=== PATIENT | female | born 1980 | race Caucasian/White ===

== ENCOUNTER 2017-09-10 11:56 | Observation (INO) | payer SELFPAY ==
[2017-09-10] MEDS ORDERED: LORazepam INJ* 2 MG/ML 1 ML VIAL IV PUSH ONE (15:16)
[2017-09-10] MEDS ORDERED: NS 0.9% 1000 ML* 1,000 ML IV ONE ×2 (15:16→16:00)
[2017-09-10 15:28] LABS: Hematocrit 38 % (35-47); Hemoglobin 13.3 g/dl (12.0-16.0); Mean Corpuscular HGB Conc 35 g/dl (31-36); Mean Corpuscular Hemoglobin 34 pg (27-31); Mean Corpuscular Volume 97 fL (80-97); Mean Platelet Volume 7 um3 (7.4-10.4); Platelet Count 187 10^3/ul (150-450); Red Blood Count 3.95 10^6/ul (4.0-5.4); Red Cell Distribution Width 15 % (10.5-15)
[2017-09-10] MEDS ORDERED: amLODIPine TAB* 5 MG PO ONE (15:57)
[2017-09-10] MEDS ORDERED: Losartan TAB* 25 MG PO ONE ×2 (15:57→15:59)
[2017-09-10 15:58] LABS: ABS Basophils 0.1 10^3/ul (0-0.2); ABS Eosinophils 0 10^3/ul (0-0.6); ABS Lymphocytes 1.1 10^3/ul (1.0-4.8); ABS Monocytes 0.7 10^3/ul (0-0.8); ABS Neutrophils 8.1 10^3/ul (1.5-7.7); ABS Nucleated RBC 0 10^3/ul; EGFR Non-African American 106.9 (>60); Eosinophil % 0 % (0-6); Lymphocyte % 11.4 % (25-47); Nucleated Red Blood Cells % 0.1
[2017-09-10] MEDS ORDERED: Metoprolol Succinate XL TAB* 25 MG PO ONE (15:58)
[2017-09-10] MEDS ORDERED: Potassium Chlor TAB* 20 MEQ TAB.ER PO ONE (16:00)
[2017-09-10] MEDS ORDERED: Ondansetron INJ* 2 MG/ML VIAL IV PRN (17:00)
[2017-09-10] MEDS ORDERED: Thiamine IV 100 MG, Folic Acid IV* 1 MG, Multiple Vitamin IV ADULT* 10 ML in NS 0.9% 10... IV ONE (17:00)
[2017-09-10] MEDS ORDERED: NS 0.9% 1000 ML* 1,000 ML IV SCH (17:00)
[2017-09-10] MEDS ORDERED: Acetaminophen TAB* 325 MG PO PRN (17:00)
[2017-09-10] MEDS ORDERED: Metoprolol Tartrate IV* 1 MG/ML 5 ML VIAL IV ONE (17:03)
[2017-09-10] MEDS ORDERED: Magnesium Sulfate 2 GM IV* 2 GM/50 ML BAG IVPB ONE (17:21)
[2017-09-10] MEDS ORDERED: LORazepam INJ* 2 MG/ML 1 ML VIAL IV PUSH SCH (18:00)
[2017-09-10] MEDS: LORazepam TAB(*) 1 MG PO SCH (18:15)
[2017-09-10] MEDS: KCL 10 MEQ/50 ML IVPREMIX* 10 MEQ/50 ML BAG IV SCH ×2 (21:45→23:45)
[2017-09-10 22:49] LABS: Urine Appearance Cloudy; Urine Blood 1+ (Negative); Urine Color Yellow; Urine Ketones Trace (Negative); Urine Protein Negative (Negative); Urine Specific Gravity 1.011 (1.010-1.030); Urine Urobilinogen Negative (Negative)
--- NOTE | 2017-09-10 22:58 | HP ---
HISTORY AND PHYSICAL: DATE OF ADMISSION: 09/10/17 PRIMARY CARE PROVIDER: None. ATTENDING PHYSICIAN WHILE IN THE HOSPITAL: Juan Manuel Wolff MD * (report dictated by Dom Loera NP). CHIEF COMPLAINT: 1. Anxiety. 2. Depression. 3. EtOH withdrawal. HISTORY OF PRESENT ILLNESS: Mrs. Babcock is 37-year-old female patient. She has a history of anxiety and depression, which she states she has been self medicating with alcohol on a daily basis for the last 5 years. She also has a history of hypertension and depression. She states the last time she was on any medications for depression and anxiety was about when she was a teenager. She does have a counselor she says. She came in today. She says the last couple of weeks she has been drinking much more heavily, she has been more anxious, more depressed. She denies any homicidal or suicidal ideation, but she does state that she stopped drinking about 24 hours ago and since then she has been more shaky. She states she has been having palpitations in her chest. She denied having any chest pain. She has been feeling nauseated. She has just been feeling more anxious and she was concerned. Her friend Kiera who was with her, advised her to get help, particularly for the alcoholism, anxiety and depression. She denies any chest pain, shortness of breath. No fevers, no cough. She says when she does get anxious, she hyperventilates and she has been having increasing severity of panic attacks. I asked her if she can speak of any trigger that may be causing this and she did not elaborate on this point. She came in to the ED and it was noted when she came in she was tachycardic, she was hypertensive. In addition to this, it was also noted that she appeared to be having signs of alcohol withdrawal, so we were asked to evaluate for admission. PAST MEDICAL HISTORY: Significant for: 1. Hypertension. 2. Depression. 3. Anxiety. PAST SURGICAL HISTORY: She has had a hernia repair. HOME MEDICATIONS: Include: 1. Amlodipine 10 mg daily. 2. Metoprolol XL 25 mg daily. 3. Losartan 100 mg p.o. daily. ALLERGIES TO MEDICATIONS: Include no known drug allergies. FAMILY HISTORY: Mother had a history of LA and CAD in her late 50s. Father had a history of colon cancer. SOCIAL HISTORY: She does not smoke or use any other recreational drug, but she does drink alcohol on a daily basis, she does not quantify the amount. Surrogate decision maker is her friend Kiera. REVIEW OF SYSTEMS: There is no documented fever. She denied any significant weight change. There was no double vision. She denies having any ear discharge. There is no rhinorrhea. There is no sore throat. No thyroid enlargement. She denied having any chest pain. She did admit to having palpitations. There is no dysuria. There is no frequency, no seizure. She denies any loss of consciousness. No pruritus and no skin ulcerations. No dysuria. No frequency. Review of 14 systems completed, all others negative. PHYSICAL EXAMINATION GENERAL: At this time, Mrs. Babcock is a 37-year-old female patient. She is sitting in the ED stretcher. She does not appear to be in any acute distress. VITAL SIGNS: Blood pressure initially 164/107, pulse 126, respirations were 20 , O2 sat 97%, temperature 98.7. Her blood pressure now on monitors is 157/98, pulse 106. HEENT: Head: Atraumatic. Eyes: Sclerae anicteric, not pale. Throat: Oral mucosa appears to be moist. No oropharyngeal erythema. NECK: Supple. LUNGS: Clear to auscultation bilaterally. No wheezes, rales, or rhonchi. HEART: Sounds S1, S2. Regular rate and rhythm. She is tachycardic. ABDOMEN: Soft, flat, nontender. Bowel sounds are present. EXTREMITIES: Pulses are 2+ throughout. She is moving all 4 extremities with 5/ 5 strength. NEUROLOGIC: She is awake, alert, oriented x3. No gross focal deficits. SKIN: Intact. DIAGNOSTIC STUDIES/LAB DATA: Sodium was 136, potassium 2.9, chloride of 98, bicarb 20, BUN 10, creatinine 0.63, glucose 130, calcium 9.2, mag 1.0. AST 30, ALT 17, alk phos 43. Albumin of 4.4, TSH of 2.68. Blood gas; pH of 7.52, pCO2 of 33. Toxicology negative. She did have an EKG obtained today, which showed sinus tachycardia at a rate of 128. No ST elevations or T wave inversions. Previous EKG showed sinus tachycardia of 105. Old medical records were reviewed. ASSESSMENT AND PLAN: Ms. Babcock is a 37-year-old female patient coming into the ED today complaining of having shaking, increasing anxiety. On evaluation here today, it was noted that she was in EtOH withdrawal. She will be admitted under observation status for: 1. EtOH withdrawal and tachycardia. At this point, I will go ahead and place her on the WAM protocol, standing Ativan as well. Tachycardia could be secondary to dehydration, also could be secondary to the alcohol withdrawal. I am going to give her 5 of IV Lopressor now. Continue her p.o. Lopressor to be taken today and will continue the WAM protocol. We will give her banana bag and continue thiamine and folic acid. 2. Hypertension. We are going to restart medications. Her blood pressure is 156/96. If I need to, I will add on p.r.n. hydralazine. 3 Anxiety and depression. We will continue with supportive care. At this point, I did place a consult with social work. In addition to this, I also placed a consult into Psychiatry for further management. 4. DVT prophylaxis. She will be placed on SCDs. 5. Code status. Full code. 6. Fluids, electrolytes, and nutrition. She can have a regular diet. TIME SPENT: Time spent on the admission is 60 minutes, greater than half the time was spent [id number] with the patient, obtaining my history and physical , other half of the time spent going over the plan of care with the patient and implementing plan of care. I did discuss the plan of care with my attending, Dr. Wolff, he is in agreement. DOM LOERA, ASCENCION [id number]/CPS #: [id number] KRISTEN
[2017-09-11] MEDS: KCL 10 MEQ/50 ML IVPREMIX* 10 MEQ/50 ML BAG IV SCH (01:53)
[2017-09-11] MEDS: LORazepam TAB(*) 1 MG PO SCH ×2 (02:41→09:39)
[2017-09-11] MEDS: Omeprazole CAP* 20 MG PO SCH (06:39)
[2017-09-11 07:52] LABS: ABS Basophils 0 10^3/ul (0-0.2); ABS Eosinophils 0.1 10^3/ul (0-0.6); ABS Lymphocytes 0.7 10^3/ul (1.0-4.8); ABS Monocytes 0.3 10^3/ul (0-0.8); ABS Neutrophils 3.2 10^3/ul (1.5-7.7); ABS Nucleated RBC 0 10^3/ul; Eosinophil % 2.7 % (0-6); Hematocrit 38 % (35-47); Hemoglobin 13.1 g/dl (12.0-16.0); Lymphocyte % 16.8 % (25-47); Mean Corpuscular HGB Conc 34 g/dl (31-36); Mean Corpuscular Hemoglobin 34 pg (27-31); Mean Corpuscular Volume 99 fL (80-97); Mean Platelet Volume 7 um3 (7.4-10.4); Nucleated Red Blood Cells % 0; Platelet Count 129 10^3/ul (150-450); Red Blood Count 3.87 10^6/ul (4.0-5.4); Red Cell Distribution Width 16 % (10.5-15); White Blood Count 4.3 10^3/ul (3.5-10.8)
[2017-09-11 08:08] LABS: EGFR Non-African American 161.8 (>60)
[2017-09-11 08:15] LABS: INR 0.83 (0.77-1.02)
[2017-09-11] MEDS: Metoprolol Succinate XL TAB* 25 MG PO SCH (09:39)
[2017-09-11] MEDS: amLODIPine TAB* 5 MG PO SCH (09:39)
[2017-09-11] MEDS: Losartan TAB* 25 MG PO SCH (09:39)
[2017-09-11] MEDS ORDERED: Potassium Chlor TAB* 20 MEQ TAB.ER PO ONE (17:48)
--- NOTE | 2017-09-11 18:10 | PN ---
Subjective Date of Service: 09/11/17 Interval History: Pt is feeling well. She is anxious and frustrated about waiting all day for her psych consult. She has not been seen by psych and now wants to leave. Her family member has been able to convince her to stay the night to be assessed tomorrow. The patient denies any withdrawal symptoms at this time. Objective Active Medications: Acetaminophen (Tylenol Tab*) 650 mg PO Q4H PRN PRN Reason: FEVER/PAIN Amlodipine Besylate (Norvasc Tab*) 10 mg PO DAILY [facility] Last Admin: 09/11/17 09:39 Dose: 10 mg Sodium Chloride (Ns 0.9% 1000 Ml*) 1,000 mls @ 125 mls/hr IV PER RATE [facility] Last Admin: 09/10/17 21:43 Dose: 125 mls/hr Lorazepam (Ativan Inj*) 0 - 3 [address] P[address] .[facility] PROTOCOL [facility] PRN Reason: Protocol Lorazepam (Ativan Tab(*)) 2 mg PO Q12H [facility] PRN Reason: Taper Stop: 09/13/17 13:59 Last Admin: 09/11/17 09:39 Dose: 2 mg Losartan Potassium (Cozaar Tab*) 100 mg PO DAILY [facility] Last Admin: 09/11/17 09:39 Dose: 100 mg Metoprolol Succinate (Toprol Xl Tab*) 25 mg PO DAILY [facility] Last Admin: 09/11/17 09:39 Dose: 25 mg Metoprolol Succinate (Toprol Xl Tab*) 12.5 mg PO BEDTIME [facility] Omeprazole (Prilosec Cap*) 20 mg PO 0600 [facility] Last Admin: 09/11/17 06:39 Dose: 20 mg Ondansetron HCl (Zofran Inj*) 4 mg IV Q6H PRN PRN Reason: NAUSEA Vital Signs - 8 hr 09/11/17 09/11/17 09/11/17 11:05 11:20 11:29 Temperature 98.1 F Pulse Rate 113 113 Respiratory 16 16 Rate Blood Pressure 147/102 144/102 (mmHg) O2 Sat by Pulse 100 100 Oximetry 09/11/17 09/11/17 09/11/17 13:42 15:16 17:15 Temperature 98.9 F Pulse Rate 108 122 111 Respiratory 14 Rate Blood Pressure 157/107 145/111 150/102 (mmHg) O2 Sat by Pulse 100 Oximetry Oxygen Devices in Use Now: None Appearance: Young female sitting up in bed, NAD Eyes: No Scleral Icterus Ears/Nose/Mouth/Throat: Mucous Membranes Moist Respiratory: Symmetrical Chest Expansion and Respiratory Effort, Clear to Auscultation Cardiovascular: NL Sounds; No Murmurs; No JVD, No Edema, - - tachycardic but regular Abdominal: NL Sounds; No Tenderness; No Distention Extremities: No Clubbing, Cyanosis Skin: No Rash or Ulcers, No Nodules or Sclerosis Neurological: Alert and Oriented x 3 Result Diagrams: 09/11/17 07:29 09/11/17 06:28 Assess/Plan/Problems-Billing Ms Babcock is a 37 yo F who has a h/o HTN, depression/anxiety and alcohol abuse who presented to the ER with c/o alcohol withdrawal. - Patient Problems (1) Alcohol withdrawal Current Visit: Yes Status: Acute Code(s): F10.239 - ALCOHOL DEPENDENCE WITH WITHDRAWAL, UNSPECIFIED SNOMED Code(s): 037600960 Comment: The patient has not been scoring high enough on the WAM protocol to receive ativan. Anxiety is the biggest issue at this time and the patients family member stated that she does not feel the patient knows how to cope and the patient would be interested in an admission to the [facility] for anxiety management. (2) HTN (hypertension) Current Visit: Yes Status: Acute Code(s): I10 - ESSENTIAL (PRIMARY) HYPERTENSION SNOMED Code(s): 38559976 Comment: BP is moderately elevated. Monitor with increased metoprolol dose. Unclear how much the HTN is secondary to possible EtOH withdrawal vs anxiety of being in the hospital. (3) Anxiety Current Visit: Yes Status: Acute Code(s): F41.9 - ANXIETY DISORDER, UNSPECIFIED SNOMED Code(s): 55195042 Comment: See above. (4) DVT prophylaxis Current Visit: Yes Status: Acute Code(s): TME6221 - SNOMED Code(s): 757273469 Comment: ambulation (5) Full code status Current Visit: Yes Status: Acute Code(s): Z78.9 - OTHER SPECIFIED HEALTH STATUS SNOMED Code(s): 347660261
[2017-09-11] MEDS ORDERED: LORazepam TAB(*) 1 MG PO PRN (18:13)
[2017-09-11] MEDS ORDERED: LORazepam TAB(*) 0.5 MG PO PRN (18:13)
[2017-09-11] MEDS ORDERED: hydrOXYzine HCL TAB* 50 MG PO PRN (18:57)
[2017-09-11] MEDS: Sertraline* 50 MG TAB PO SCH (20:05)
[2017-09-11] MEDS ORDERED: Metoprolol Succinate XL TAB* 25 MG PO SCH (21:00)
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
[2017-09-12] MEDS: Omeprazole CAP* 20 MG PO SCH (05:19)
[2017-09-12] MEDS: Metoprolol Succinate XL TAB* 25 MG PO SCH (07:49)
[2017-09-12] MEDS: Sertraline* 50 MG TAB PO SCH (07:49)
[2017-09-12] MEDS: Losartan TAB* 25 MG PO SCH (07:49)
[2017-09-12] MEDS: amLODIPine TAB* 5 MG PO SCH (07:49)
[2017-09-12 08:56] VITALS: BP 165/120
--- NOTE | 2017-09-12 22:47 | ED ---
Gary Figueroa Jennifer scribed for Elier Godinez MD on 09/10/17 at 1539 . Substance Abuse/Use - HPI Summary HPI Summary: The patient is a 37 year old female who presents with anxiety that worsened today. The patient describes that she has been generally anxious for years and typically drinks half a bottle of alcohol every day to deal with the anxiety. She reports that she had problems with breathing and chest soreness from nausea earlier today. The patient denies tingling or numbness, seizures, and suicidal ideation. She additionally complains of loss of appetite. The patient lives alone and works six days a week. She has gone through withdrawal before, - History Of Current Complaint Chief Complaint: EDSubstanceAbuse Stated Complaint: PANIC ATTACT Time Seen by Provider: 09/10/17 15:06 Hx Obtained From: Patient Ingestion History: Type/Name Of Drug - EtOH, Amount Ingested - About half a bottle of vodka 6 days a week Overdose Characteristics: Oral Timing Of Abuse: Daily Severity Initially: Moderate Severity Currently: Moderate Character: Anxious Aggravating Factor(s): Nothing Alleviating Factor(s): Nothing Associated Signs And Symptoms: Other: - difficulty breathing, chest soreness, nausea, loss of appetite. NEGATIVE: tingling, numbness, seizures, suicidal ideation - Allergies/Home Medications Allergies/Adverse Reactions: Allergies Allergy/AdvReac Type Severity Reaction Status Date / Time No Known Allergies Allergy Verified 01/17/15 13:14 Home Medications: Home Medications Losartan TAB* [Cozaar TAB*] 100 mg PO DAILY 09/10/17 [History Confirmed 09/10/17 ] Metoprolol Succinate XL TAB* [Toprol XL TAB*] 25 mg PO DAILY 09/10/17 [History Confirmed 09/10/17] amLODIPine TAB* [Norvasc 5 mg TAB*] 10 mg PO DAILY 09/10/17 [History Confirmed 09/10/17] PMH/Surg Hx/FS Hx/Imm Hx Endocrine/Hematology History: Denies: Hx Diabetes Cardiovascular History: Reports: Hx Hypertension Psychiatric History: Reports: Hx Anxiety Infectious Disease History: No Infectious Disease History: Denies: Traveled Outside the [place] in Last 30 Days - Family History Known Family History: Positive: Unknown - Her parents a while ago - Social History Alcohol Use: Daily Alcohol Amount: "larger consumptions than smaller" Substance Use Type: Reports: None Smoking Status (MU): Former Smoker Review of Systems Negative: Fever, Chills Negative: Erythema Negative: Sore Throat Positive: Other - Chest soreness from nausea. Negative: Chest Pain Positive: Shortness Of Breath - Difficulty breathing. Negative: Cough Positive: Nausea. Negative: Abdominal Pain, Vomiting Negative: dysuria, hematuria Negative: Myalgia, Edema Negative: Rash Neurological: Negative - Dizziness, Seizures Negative: Numbness Positive: Anxious All Other Systems Reviewed And Are Negative: Yes Physical Exam - Summary Physical Exam Summary: Constitutional: Well-developed, Well nourished, Alert. Tremulant. Skin: Warm, Diaphoretic. HENT: Normocephalic; Atraumatic Eyes: Conjunctiva normal Neck: Musculoskeletal ROM normal neck. (-) JVD, (-) Stridor, (-) Tracheal deviation Cardio: Rhythm regular, rate normal, Heart sounds normal; Intact distal pulses; The pedal pulses are 2+ and symmetric. Radial pulses are 2+ and symmetric. (-) Murmur Pulmonary/Chest wall: Effort normal. (-) Respiratory distress, (-) Wheezes, (-) Rales Abd: Soft, (-) Tenderness, (-) Distension, (-) Guarding, (-) Rebound Musculoskeletal: (-) Edema Lymph: (-) Cervical adenopathy Neuro: Alert, Oriented x3 Psych: Mood and affect Normal Triage Information Reviewed: Yes Vital Signs On Initial Exam: Initial Vitals Temp Pulse Resp BP Pulse Ox 98.1 F 141 20 172/109 100 09/10/17 12:02 09/10/17 12:02 09/10/17 12:02 09/10/17 12:02 09/10/17 12:02 Vital Signs Reviewed: Yes Diagnostics - Vital Signs Vital Signs Temp Pulse Resp BP Pulse Ox 09/10/17 15:00 132 16 100 09/10/17 14:53 167/100 09/10/17 14:52 19 09/10/17 14:30 142 160/101 100 09/10/17 14:27 146 99 09/10/17 14:26 164/105 09/10/17 14:07 98.8 F 157 20 174/100 100 09/10/17 12:02 98.1 F 141 20 172/109 100 - Laboratory Result Diagrams: 09/10/17 15:16 09/10/17 15:16 Lab Statement: Any lab studies that have been ordered have been reviewed, and results considered in the medical decision making process. - EKG 15:01 Cardiac Rate: Tachycardia EKG Rhythm: Sinus Tachycardia - 128 BPM EKG Interpretation: No STEMI Course/Dx - Course Assessment/Plan: The patient is a 37 year old female who presents with anxiety that worsened today. The patient describes that she has been generally anxious for years and typically drinks half a bottle of alcohol every day to deal with the anxiety. In the ED course the patient was given Norvasc, Ativan, Cozaar, Toprol, IV fluids, and Potassium Chloride. Bloodwork and Urinalysis were obtained. EKG showed sinus tachycardia at 128 BPM. I consulted with Dr. Wolff, hospitalist, who has agreed to admit the patient to [facility]. The patient is diagnosed with alcohol withdrawal, alcoholic ketoacidosis, and hypokalemia. The patient is admitted to [facility]. - Diagnoses Provider Diagnoses: Alcohol withdrawal, Alcoholic ketoacidosis, Hypokalemia - Physician Notifications Discussed Care Of Patient With: Juan Manuel Wolff Time Discussed With Above Provider: 16:17 Instructed by Provider To: Admit As Inpatient Discharge - Discharge Plan Condition: Fair Disposition: ADMITTED TO [facility] Referrals: No Primary Care Phys,NOPCP [Primary Care Provider] - The documentation as recorded by the Gary marks Jennifer accurately reflects the service I personally performed and the decisions made by me, Elier Godinez MD.
--- NOTE | 2017-09-14 10:37 | DS ---
CC: Dr. Rosy Wolff; Dr. Flako Malagon. DISCHARGE SUMMARY: DATE OF ADMISSION: 09/10/17 DATE OF DISCHARGE: 09/12/17 PRIMARY CARE PROVIDER: Dr. Rosy Wolff. ATTENDING PHYSICIAN WHILE IN THE HOSPITAL: Dr. Flako Malagon. CONSULTING PROVIDER: Dr. William Minaya. PRIMARY DISCHARGE DIAGNOSIS: Anxiety, alcohol withdrawal. SECONDARY DISCHARGE DIAGNOSES: 1. Hypertension. 2. Depression. STUDIES DONE WHILE IN THE HOSPITAL: None. MEDICATIONS AT DISCHARGE: 1. Metoprolol succinate 25 mg p.o. daily. 2. Amlodipine 10 mg p.o. daily. 3. Losartan 100 mg p.o. daily. 4. Sertraline 50 mg p.o. daily. 5. Metoprolol succinate 12.5 mg p.o. at bedtime. 6. Hydroxyzine 50 mg p.o. q.6 hours as needed. 7. Tylenol 650 mg p.o. q.4 hours as needed. New medications at discharge: 1. Tylenol. 2. Hydroxyzine. 3. Metoprolol succinate 12.5 mg. 4. Zoloft. Medications discontinued at discharge: None. HOSPITAL COURSE: This is a brief summary of the patient's presentation. For more details please see the history and physical from Dom Elise NP on 08/31/17. In brief, the patient is a 37-year-old female with past medical history significant for the above who presents after "self medicating with alcohol on a daily basis for 5 years for her anxiety". The patient sees a counsellor but is not yasmine bogdan with any medications for her depression or anxiety as her counsellor is against these. The patien t states for the last couple of weeks she has been drinking much more heavily because she has been mo re anxious and depressed without suicidal or homicidal ideations. The patient stopped drinking 24 ho urs before presentation and started having palpitations, feeling shaky. The patient also had increas ed severity of her panic attacks. The patient came to the hospital with classic signs of alcohol wit hdrawal including tachycardia and hypertension. The patient was admitted to the hospital and started on the [facility] protocol, given bag, thiamine. The patient had a positive urinalysis which did not grow any culture. The patient's urine and blood toxicology showed no abnormalities. The patient had a sl ightly elevated bilirubin. No other LFT abnormalities. The patient's potassium was low. No other si gnificant abnormalities. The patient had an elevated venous blood gas pH, low PCO2, and high base ex cess consistent with respiratory alkalosis from hyperventilation. The patient received Ativan, fluid s, potassium, and improved greatly from 09/10/17 to 09/11/17, but persisted having anxiety and shakin ess. The patient's withdrawal symptoms had otherwise resolved at this point. The patient was seen i n consultation by Dr. Minaya. She was started on hydroxyzine and sertraline. It was recommended agai nst her being involuntarily admitted to the [facility] and that she should pursue outpatient alcohol rehab. The patient also stated that she had characteristics of borderline personality disorder and generali zed anxiety disorder. The patient improved again from 09/11/17 to 09/12/17. The patient's tachycard ia at this point resolved overnight. The patient's blood pressure was slightly hypertensive througho ut her hospitalization. The patient had no other abnormalities or complaints. The patient was amend able to discharge to home on 09/12/17. The patient had recently been discharged from her primary car e provider due to lack of payment for bill, but she said she would do her best to try to reestablish with Dr. Wolff. PHYSICAL EXAMINATION ON THE DAY OF DISCHARGE: General: The patient is a 37-year- old female who marcella ears stated age and sitting comfortably in bed in moderate distress from anxiety and shakiness. Gisel l Signs: At the time of discharge, temperature 98.5, pulse rate 136, respiratory rate 18, oxygen sat uration 100% on room air, and blood pressure 165/120. HEENT: Head normocephalic and atraumatic. Scl erae anicteric. No conjunctival injection. Nasal mucosa moist. Oral mucosa moist. No oropharyngea l erythema, discharge, or exudate. Neck: Supple and nontender. No lymphadenopathy. No carotid bru its auscultated. Cardiac: Tachycardic. No clicks, murmurs, gallops, or rubs. Pulses 2+ in bilatera l dorsalis pedis, posterior tibialis, and radial areas. No bilateral lower extremity edema noted. R espiratory: Clear to auscultation bilaterally. No wheezes, rales, or rhonchi. Good air exchange bi laterally. Abdomen: Soft, nontender, and nondistended. Bowel sounds present, normoactive in all 4 quadrants. Genitourinary: No suprapubic tenderness or CVA tenderness. Skin: Clean, dry, and intact . No rash. Neurologic: Cranial nerves II through XII intact. No focal deficits. The patient has an enhanced physiologic tremor. 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 LABORATORY DATA: From admission, see above. DISCHARGE PLAN: The patient will be discharged home on new anxiety medications of sertraline and [place] rax. It was discussed with the patient that sertraline will not have an immediate effect and that th e patient should continue going to her counsellor as a combination of pharmacologic and psychotherapy is most effective in treating anxiety. The patient states that she will follow up with [facility] in [place] on her own time. The patient states that she intents to maintain abstinence from a lcohol and has a good support system at home. The patient will follow up with her primary care topher tapia if possible in 1 week. The patient was mildly hypertensive while in the hospital. The patient's metoprolol was increased for both control of her anxiety and her blood pressure. The patient should gauge activity as tolerated and to have a regular unrestricted diet. The patient will return to the hospital for alarming symptoms such as seizures, chest pain, or shortn ess of breath. TIME SPENT: Approximately 60 minutes was spent on this discharge, 30 of which was spent [id number] with the patient obtaining history and physical and discussing treatment plan. ANTONIO LEYVA [id number]/[facility] #: [id number]
== END 2017-09-12 09:25 | disposition home or self-care (01) ==
LOC: ED 11:56 → MEDTELE 16:55
PROVIDERS: ADMIT Internal Medicine; ATTEND Hospitalist
DX: F10.239 Alcohol dependence with withdrawal, unspecified (principal); E87.2 Acidosis; E87.6 Hypokalemia; R11.0 Nausea; R06.02 Shortness of breath; F41.9 Anxiety disorder, unspecified; Z87.891 Personal history of nicotine dependence
CPT/HCPCS: 36415; 80048; 80053; 80307; 80320; 80329; 81003; 81015; 82803; 83735; 84443; 85025; 85610; 87086; 93005; 96374; 99283; A9270-GY; G0378; G0480; J2060; J3411; J3475; J3480; J3490

== ENCOUNTER 2017-12-26 10:46 | Emergency (ER) | payer SELFPAY ==
[2017-12-26 11:59] LABS: ABS Basophils 0 10^3/ul (0-0.2); ABS Eosinophils 0.1 10^3/ul (0-0.6); ABS Lymphocytes 0.6 10^3/ul (1.0-4.8); ABS Monocytes 0.5 10^3/ul (0-0.8); ABS Neutrophils 8.2 10^3/ul (1.5-7.7); ABS Nucleated RBC 0 10^3/ul; Eosinophil % 1.1 % (0-6); Hematocrit 36 % (35-47); Hemoglobin 12.5 g/dl (12.0-16.0); Lymphocyte % 6.5 % (25-47); Mean Corpuscular HGB Conc 35 g/dl (31-36); Mean Corpuscular Hemoglobin 34 pg (27-31); Mean Corpuscular Volume 97 fL (80-97); Mean Platelet Volume 6.9 um3 (7.4-10.4); Nucleated Red Blood Cells % 0; Platelet Count 310 10^3/ul (150-450); Red Blood Count 3.68 10^6/ul (4.0-5.4); Red Cell Distribution Width 16 % (10.5-15); White Blood Count 9.4 10^3/ul (3.5-10.8)
[2017-12-26 12:09] LABS: EGFR Non-African American 77.8 (>60)
[2017-12-26] MEDS ORDERED: Potassium Chlor TAB* 20 MEQ TAB.ER PO ONE (12:33)
[2017-12-26] MEDS ORDERED: Magnesium Sulfate 2 GM IV* 2 GM/50 ML BAG IVPB ONE (12:33)
[2017-12-26] MEDS ORDERED: NS 0.9% w/ 20 Meq KCL 1000 ML* 1,000 ML IV SCH (13:00)
[2017-12-26 13:10] LABS: Urine Appearance Clear; Urine Blood Negative (Negative); Urine Color Straw; Urine Ketones Negative (Negative); Urine Protein Negative (Negative); Urine Specific Gravity 1.001 (1.010-1.030); Urine Urobilinogen Negative (Negative)
--- NOTE | 2017-12-26 14:00 | ED ---
Jihan Figueroa Emily, scribed for Montana Leone MD on 12/26/17 at 1129 . Psychiatric Complaint - HPI Summary HPI Summary: This patient is a 37 year old F BIBA to [facility] with a chief complaint of anxiety that began 2 days ago and worsened today. Pt reports that her entire body tensed up due to her anxiety, causing her to fall down the stairs. The patient rates the pain 0/10 in severity. Symptoms aggravated by recent stress. Symptoms alleviated by nothing. Patient denies hyperventilation and SI. The patient reports that her anxiety began 5 years ago after her mom passing away. - History Of Current Complaint Chief Complaint: EDMentalHealth Time Seen by Provider: 12/26/17 11:20 Hx Obtained From: Patient ?: No Onset/Duration: Sudden Onset, Lasting Days, Still Present, Worse Since - Earlier today Timing: Constant Severity Initially: Mild Severity Currently: Mild Character: Anxious Aggravating Factor(s): Recent Stress Alleviating Factor(s): Nothing Has Suicidal: Denies: Thoughts - Allergies/Home Medications Allergies/Adverse Reactions: Allergies Allergy/AdvReac Type Severity Reaction Status Date / Time No Known Allergies Allergy Verified 12/26/17 11:07 PMH/Surg Hx/FS Hx/Imm Hx Previously Healthy: No Endocrine/Hematology History: Denies: Hx Diabetes Cardiovascular History: Reports: Hx Hypertension Sensory History: Denies: Hx Contacts or Glasses, Hx Hearing Aid Opthamlomology History: Denies: Hx Contacts or Glasses Psychiatric History: Reports: Hx Anxiety Infectious Disease History: No Infectious Disease History: Denies: Traveled Outside the [place] in Last 30 Days - Family History Known Family History: Positive: Unknown - Her parents a while ago - Social History Occupation: Employed Full-time Lives: Alone Alcohol Use: Daily Alcohol Amount: "larger consumptions than smaller" Hx Substance Use: No Substance Use Type: Reports: None Hx Tobacco Use: Yes Smoking Status (MU): Former Smoker Review of Systems Positive: Other - Negative hyperventilation Psychological: Other - Negative SI Positive: Anxious All Other Systems Reviewed And Are Negative: Yes Physical Exam - Summary Physical Exam Summary: General: well-appearing, no pain distress Skin: warm, color reflects adequate perfusion, dry Head: normal Eyes: EOMI, SHANA ENT: normal Neck: supple, nontender Respiratory: CTA, breath sounds present Cardiovascular: RRR Abdomen: soft, nontender Bowel: present Musculoskeletal: normal, strength/ROM intact Neurological: sensory/motor intact, A&O x3 Psychological: affect/mood appropriate Triage Information Reviewed: Yes Vital Signs On Initial Exam: Initial Vitals Temp Pulse Resp BP Pulse Ox 98.2 F 113 18 139/96 99 12/26/17 11:01 12/26/17 11:01 12/26/17 11:01 12/26/17 11:01 12/26/17 11:01 Vital Signs Reviewed: Yes Diagnostics - Vital Signs Vital Signs Temp Pulse Resp BP Pulse Ox 12/26/17 11:01 98.2 F 113 18 139/96 99 - Laboratory Lab Results: Lab Results 12/26/17 12/26/17 12/26/17 Range/Units 11:37 11:37 12:42 WBC 9.4 (3.5-10.8) 10^3/ul RBC 3.68 L (4.0-5.4) 10^6/ul Hgb 12.5 (12.0-16.0) g/dl Hct 36 (35-47) % MCV 97 (80-97) fL MCH 34 H (27-31) pg MCHC 35 (31-36) g/dl RDW 16 H (10.5-15) % Plt Count 310 (150-450) 10^3/ul MPV 6.9 L (7.4-10.4) um3 Neut % (Auto) 87.0 H (38-83) % Lymph % (Auto) 6.5 L (25-47) % Bay % (Auto) 5.1 (0-7) % Eos % (Auto) 1.1 (0-6) % Baso % (Auto) 0.3 (0-2) % Absolute Neuts (auto) 8.2 H (1.5-7.7) 10^3/ul Absolute Lymphs (auto) 0.6 L (1.0-4.8) 10^3/ul Absolute Monos (auto) 0.5 (0-0.8) 10^3/ul Absolute Eos (auto) 0.1 (0-0.6) 10^3/ul Absolute Basos (auto) 0 (0-0.2) 10^3/ul Absolute Nucleated RBC 0 10^3/ul Nucleated RBC % 0 Sodium 139 (139-145) mmol/L Potassium 2.5 L* (3.5-5.0) mmol/L Chloride 95 L (101-111) mmol/L Carbon Dioxide 28 (22-32) mmol/L Anion Gap 16 H (2-11) mmol/L BUN 6 (6-24) mg/dL Creatinine 0.83 (0.51-0.95) mg/dL Est GFR ( Amer) 100.0 (>60) Est GFR (Non-Af Amer) 77.8 (>60) BUN/Creatinine Ratio 7.2 L (8-20) Glucose 109 H (70-100) mg/dL Calcium 7.7 L (8.6-10.3) mg/dL Magnesium 0.8 L* (1.9-2.7) mg/dL Total Bilirubin 2.50 H (0.2-1.0) mg/dL AST 50 H (13-39) U/L ALT 42 (7-52) U/L Alkaline Phosphatase 52 (34-104) U/L Total Creatine Kinase 224 H (10-223) U/L Total Protein 6.8 (6.4-8.9) g/dL Albumin 3.9 (3.2-5.2) g/dL Globulin 2.9 (2-4) g/dL Albumin/Globulin Ratio 1.3 (1-3) TSH 1.64 (0.34-5.60) mcIU/mL Beta HCG, Quant < 0.60 mIU/mL Urine Color Straw Urine Appearance Clear Urine pH 8.0 (5-9) Ur Specific [place] 1.001 L (1.010-1.030) Urine Protein Negative (Negative) Urine Ketones Negative (Negative) Urine Blood Negative (Negative) Urine Nitrate Negative (Negative) Urine Bilirubin Negative (Negative) Urine Urobilinogen Negative (Negative) Ur Leukocyte Esterase Trace A (Negative) Urine WBC (Auto) Trace(0-5/hpf) (Absent) Urine RBC (Auto) Trace(0-2/hpf) (Absent) Ur Squamous Epith Cells Present A (Absent) Urine Bacteria Absent (Absent) Urine Glucose Negative (Negative) Salicylates < 2.50 (<30) mg/dL Urine Opiates Screen (None Detect) Acetaminophen < 15 mcg/mL Ur Barbiturates Screen (None Detect) Ur Phencyclidine Scrn (None Detect) Ur Amphetamines Screen (None Detect) U Benzodiazepines Scrn (None Detect) Urine Cocaine Screen (None Detect) U Cannabinoids Screen (None Detect) Serum Alcohol < 10 (<10) mg/dL 12/26/17 Range/Units 12:42 WBC (3.5-10.8) 10^3/ul RBC (4.0-5.4) 10^6/ul Hgb (12.0-16.0) g/dl Hct (35-47) % MCV (80-97) fL MCH (27-31) pg MCHC (31-36) g/dl RDW (10.5-15) % Plt Count (150-450) 10^3/ul MPV (7.4-10.4) um3 Neut % (Auto) (38-83) % Lymph % (Auto) (25-47) % Bay % (Auto) (0-7) % Eos % (Auto) (0-6) % Baso % (Auto) (0-2) % Absolute Neuts (auto) (1.5-7.7) 10^3/ul Absolute Lymphs (auto) (1.0-4.8) 10^3/ul Absolute Monos (auto) (0-0.8) 10^3/ul Absolute Eos (auto) (0-0.6) 10^3/ul Absolute Basos (auto) (0-0.2) 10^3/ul Absolute Nucleated RBC 10^3/ul Nucleated RBC % Sodium (139-145) mmol/L Potassium (3.5-5.0) mmol/L Chloride (101-111) mmol/L Carbon Dioxide (22-32) mmol/L Anion Gap (2-11) mmol/L BUN (6-24) mg/dL Creatinine (0.51-0.95) mg/dL Est GFR ( Amer) (>60) Est GFR (Non-Af Amer) (>60) BUN/Creatinine Ratio (8-20) Glucose (70-100) mg/dL Calcium (8.6-10.3) mg/dL Magnesium (1.9-2.7) mg/dL Total Bilirubin (0.2-1.0) mg/dL AST (13-39) U/L ALT (7-52) U/L Alkaline Phosphatase (34-104) U/L Total Creatine Kinase (10-223) U/L Total Protein (6.4-8.9) g/dL Albumin (3.2-5.2) g/dL Globulin (2-4) g/dL Albumin/Globulin Ratio (1-3) TSH (0.34-5.60) mcIU/mL Beta HCG, Quant mIU/mL Urine Color Urine Appearance Urine pH (5-9) Ur Specific [place] (1.010-1.030) Urine Protein (Negative) Urine Ketones (Negative) Urine Blood (Negative) Urine Nitrate (Negative) Urine Bilirubin (Negative) Urine Urobilinogen (Negative) Ur Leukocyte Esterase (Negative) Urine WBC (Auto) (Absent) Urine RBC (Auto) (Absent) Ur Squamous Epith Cells (Absent) Urine Bacteria (Absent) Urine Glucose (Negative) Salicylates (<30) mg/dL Urine Opiates Screen None detected (None Detect) Acetaminophen mcg/mL Ur Barbiturates Screen None detected (None Detect) Ur Phencyclidine Scrn None detected (None Detect) Ur Amphetamines Screen None detected (None Detect) U Benzodiazepines Scrn None detected (None Detect) Urine Cocaine Screen None detected (None Detect) U Cannabinoids Screen None detected (None Detect) Serum Alcohol (<10) mg/dL Result Diagrams: 12/26/17 11:37 12/26/17 11:37 Lab Statement: Any lab studies that have been ordered have been reviewed, and results considered in the medical decision making process. - EKG 1240 Cardiac Rate: Tachycardia EKG Rhythm: Sinus Rhythm - [address] Segment: Normal Ectopy: None EKG Interpretation: Borderline prolonged QT intervals at 492 Re-Evaluation - Re-Evaluation First Eval Re-Evaluation Time: 13:41 Change: Improved Comment: The pt prefers to go home, and declines a MHE at this time. Course/Dx - Course Course Of Treatment: This patient is a 37 year old F BIBA to [facility] with a chief complaint of anxiety that began 2 days ago and worsened today. She denies SI and HI. Consult with Dr. Velazquez (hospitalist) at 1333. Discussed the patient's case. The patient reports that she used to drink everyday, and then she joined and hasnt had a drink in two weeks. She has been going withdrawal, but has been improving. She denies abd pain, diarrhea, and denies any use of laxative. The patient would prefer to go home, and denies a MHE at this time. Pt will be discharged home with follow up from PCP and mental health as long as she tolerates magnesium and potassium. The patient is agreeable with this plan. DISCUSSED RESULTS AND TREATMENT. F/U PMD AND COUNSELOR THIS WEEK. DISCUSSED RETURNING TO THE ED IF CRAMPING RETURNS. - Differential Dx/Clinical Impression Provider Diagnosis: Hypokalemia, Hypomagnesemia, Anxiety - Physician Notifications Discussed Care Of Patient With: Ryann Velazquez Time Discussed With Above Provider: 13:33 Instructed by Provider To: Other - Consult with Dr. Velazquez (hospitalist) at 1333. Discussed the plan of care for the patient Discharge - Sign-Out/Discharge Documenting (check all that apply): Discharge/Admit/Transfer - Discharge Plan Condition: Stable Disposition: HOME Prescriptions: Magnesium Oxide TAB* [MagOx 400 TAB*] 400 mg PO DAILY #30 tab Potassium Chlor TAB* [Klor Con ER TAB*] 20 meq PO DAILY #30 tab.er Patient Education Materials: Hypokalemia (ED), Hypomagnesemia (ED), Anxiety (ED ) Referrals: [facility] [place] [facility]ICIAN REFERRAL [Outside] Additional Instructions: FOLLOW UP WITH YOUR DOCTOR WITHIN THE NEXT 1 WEEK TO HAVE YOUR POTASSIUM AND MAGNESIUM LEVELS RECHECKED. RETURN TO THE EMERGENCY DEPARTMENT FOR ANY CONTINUED CRAMPING YOU MAY NEED TO BE ADMITTED FOR MORE POTASSIUM AND MAGNESIUM VIA IV AND FURTHER EVALUATION. FOLLOW UP WITH YOUR COUNSELOR FOR YOUR ANXIETY. RETURN TO THE EMERGENCY DEPARTMENT FOR ANY WORSENING OF YOUR CONDITION OR QUESTIONS OR CONCERNS. - Billing Disposition and Condition Condition: STABLE Disposition: HOME The documentation as recorded by the Jihan marks Emily accurately reflects the service I personally performed and the decisions made by me, Montana Leone MD.
[2017-12-26 15:15] VITALS: BP 130/84
== END 2017-12-26 15:14 | disposition home or self-care (01) ==
LOC: ED 10:46
DX: E87.6 Hypokalemia (principal); E83.42 Hypomagnesemia; F41.9 Anxiety disorder, unspecified; R00.0 Tachycardia, unspecified; I10 Essential (primary) hypertension; Z87.891 Personal history of nicotine dependence
CPT/HCPCS: 36415; 80053; 80307; 80320; 80329; 81003; 81015; 82550; 83735; 84443; 84702; 85025; 87086; 93005; 96365; 96366; 99282; A9270-GY; G0480; J3475

== ENCOUNTER 2018-01-19 10:03 | Emergency (ER) | payer SELFPAY ==
[2018-01-19] MEDS ORDERED: Thiamine IV* 100 MG, Folic Acid IV* 1 MG, Multiple Vitamin IV ADULT* 10 ML in NS 0.9% 1... IV ONE ×2 (10:18→12:00)
[2018-01-19 10:36] LABS: ABS Basophils 0 10^3/ul (0-0.2); ABS Eosinophils 0.1 10^3/ul (0-0.6); ABS Lymphocytes 0.7 10^3/ul (1.0-4.8); ABS Monocytes 0.7 10^3/ul (0-0.8); ABS Neutrophils 6.2 10^3/ul (1.5-7.7); ABS Nucleated RBC 0 10^3/ul; Eosinophil % 0.8 % (0-6); Hematocrit 35 % (35-47); Hemoglobin 12.6 g/dl (12.0-16.0); Lymphocyte % 9.7 % (25-47); Mean Corpuscular HGB Conc 36 g/dl (31-36); Mean Corpuscular Hemoglobin 35 pg (27-31); Mean Corpuscular Volume 97 fL (80-97); Mean Platelet Volume 6.9 um3 (7.4-10.4); Nucleated Red Blood Cells % 0.1; Platelet Count 200 10^3/ul (150-450); Red Blood Count 3.64 10^6/ul (4.00-5.40); Red Cell Distribution Width 15 % (10.5-15); White Blood Count 7.7 10^3/ul (3.5-10.8)
[2018-01-19] MEDS ORDERED: Magnesium Sulfate 1 GM IV* 1 GM/100 ML BAG IV ONE ×3 (10:37→13:31)
[2018-01-19] MEDS ORDERED: NS 0.9% 1000 ML* 1,000 ML IV ONE (10:37)
[2018-01-19 10:56] LABS: EGFR Non-African American 64.2 (>60)
[2018-01-19] MEDS ORDERED: LORazepam INJ* 2 MG/ML 1 ML VIAL IV PUSH ONE (10:58)
[2018-01-19] MEDS ORDERED: Potassium Chlor TAB* 20 MEQ TAB.ER PO ONE (11:07)
--- NOTE | 2018-01-19 11:15 | ED ---
Complex/Multi-Sys Presentation - HPI Summary HPI Summary: 37-year-old female presents with body wide muscle cramps. She states she gets this every once a while. She states she is supposed to be taking magnesium and potassium supplements which was given last time was here but has not been. She states she was an alcoholic but last drink was 3 weeks ago. She denies any drug use. She is only on blood pressure medications. She denies any nausea vomiting. No diarrhea. She states that the cramps started last night in her face and travel down her body. She states that her legs have been giving out and due to the spasms and she has been falling. She states that the muscle spasm got very bad this morning and she is unable to open her right hand. She states that the cramps in the chest cause she has shortness of breath. She also has a history of anxiety. She states that she is having tetany of her arms. - History Of Current Complaint Chief Complaint: EDGeneral Time Seen by Provider: 01/19/18 10:19 - Allergies/Home Medications Allergies/Adverse Reactions: Allergies Allergy/AdvReac Type Severity Reaction Status Date / Time No Known Allergies Allergy Verified 01/19/18 10:16 PMH/Surg Hx/FS Hx/Imm Hx Endocrine/Hematology History: Denies: Hx Diabetes Cardiovascular History: Reports: Hx Hypertension Sensory History: Denies: Hx Contacts or Glasses, Hx Hearing Aid Opthamlomology History: Denies: Hx Contacts or Glasses Psychiatric History: Reports: Hx Anxiety Infectious Disease History: No Infectious Disease History: Denies: Traveled Outside the [place] in Last 30 Days - Family History Known Family History: Positive: Unknown - Her parents a while ago - Social History Alcohol Use: Daily Alcohol Amount: "larger consumptions than smaller" Hx Substance Use: No Substance Use Type: Reports: None Hx Tobacco Use: Yes Smoking Status (MU): Former Smoker Review of Systems Negative: Fever Negative: Chest Pain Negative: Shortness Of Breath All Other Systems Reviewed And Are Negative: Yes Physical Exam Triage Information Reviewed: Yes Vital Signs On Initial Exam: Initial Vitals Temp Pulse Resp BP Pulse Ox 99.1 F 128 24 155/110 94 01/19/18 10:08 01/19/18 10:08 01/19/18 10:08 01/19/18 10:08 01/19/18 10:08 Vital Signs Reviewed: Yes Appearance: Positive: Well-Appearing Skin: Positive: Warm, Dry Head/Face: Positive: Normal Head/Face Inspection Eyes: Positive: Normal, Conjunctiva Clear ENT: Positive: Pharynx normal Respiratory/Lung Sounds: Positive: Clear to Auscultation, Breath Sounds Present Cardiovascular: Positive: Normal, RRR Musculoskeletal: Positive: Other - tetany of bilateral hands right>left hand Neurological: Positive: Sensory/Motor Intact, Alert, Oriented to Person Place, Time, CN Intact II-III, Other - spasms noted off bilateral arms and face. Negative: Receptive Aphasia, Expressive Aphasia, Pronator Drift Present Psychiatric: Positive: Normal Diagnostics - Vital Signs Vital Signs Temp Pulse Resp BP Pulse Ox 01/19/18 10:08 99.1 F 128 24 155/110 94 - Laboratory Lab Results: Lab Results 01/19/18 01/19/18 Range/Units 10:25 10:25 WBC 7.7 (3.5-10.8) 10^3/ul RBC 3.64 L (4.00-5.40) 10^6/ul Hgb 12.6 (12.0-16.0) g/dl Hct 35 (35-47) % MCV 97 (80-97) fL MCH 35 H (27-31) pg MCHC 36 (31-36) g/dl RDW 15 (10.5-15) % Plt Count 200 (150-450) 10^3/ul MPV 6.9 L (7.4-10.4) um3 Neut % (Auto) 80.4 (38-83) % Lymph % (Auto) 9.7 L (25-47) % Gordon % (Auto) 8.6 H (0-7) % Eos % (Auto) 0.8 (0-6) % Baso % (Auto) 0.5 (0-2) % Absolute Neuts (auto) 6.2 (1.5-7.7) 10^3/ul Absolute Lymphs (auto) 0.7 L (1.0-4.8) 10^3/ul Absolute Monos (auto) 0.7 (0-0.8) 10^3/ul Absolute Eos (auto) 0.1 (0-0.6) 10^3/ul Absolute Basos (auto) 0 (0-0.2) 10^3/ul Absolute Nucleated RBC 0 10^3/ul Nucleated RBC % 0.1 Sodium 136 (135-145) mmol/L Potassium 3.2 L (3.5-5.0) mmol/L Chloride 93 L (101-111) mmol/L Carbon Dioxide 24 (22-32) mmol/L Anion Gap 19 H (2-11) mmol/L BUN 7 (6-24) mg/dL Creatinine 0.98 H (0.51-0.95) mg/dL Est GFR ( Amer) 77.7 (>60) Est GFR (Non-Af Amer) 64.2 (>60) BUN/Creatinine Ratio 7.1 L (8-20) Glucose 146 H (70-100) mg/dL Calcium 8.5 L (8.6-10.3) mg/dL Magnesium 0.6 L* (1.9-2.7) mg/dL Total Bilirubin 3.50 H (0.2-1.0) mg/dL AST 60 H (13-39) U/L ALT 103 H (7-52) U/L Alkaline Phosphatase 74 (34-104) U/L C-Reactive Protein 9.62 H (<8.01) mg/L Total Protein 7.5 (6.4-8.9) g/dL Albumin 4.1 (3.2-5.2) g/dL Globulin 3.4 (2-4) g/dL Albumin/Globulin Ratio 1.2 (1-3) TSH Pending Serum Alcohol Pending Result Diagrams: 01/19/18 10:25 01/19/18 10:25 Lab Statement: Any lab studies that have been ordered have been reviewed, and results considered in the medical decision making process. - EKG No standard instances EKG Rhythm: Sinus Rhythm ST Segment: Normal EKG Interpretation: sinus rhythm EKG Comparison: No Significant Change Re-Evaluation - Re-Evaluation First Eval Re-Evaluation Time: 12:45 Change: Improved Comment: tetany still present Second Eval Re-Evaluation Time: 13:58 Change: Improved - feeling better after 1 gram, tetany still present Comment: no tetany present, full ROM hands Complex Multi-Symp Course/Dx Course Of Treatment: 37-year-old female presents with body wide muscle cramps. She states she gets this every once a while. She states she is supposed to be taking magnesium and potassium supplements which was given last time was here but has not been. She states she was an alcoholic but last drink was 3 weeks ago. She denies any drug use. She is only on blood pressure medications. She denies any nausea vomiting. No diarrhea. She states that the cramps started last night in her face and travel down her body. She states that her legs have been giving out and due to the spasms and she has been falling. She states that the muscle spasm got very bad this morning and she is unable to open her right hand. She states that the cramps in the chest cause she has shortness of breath. She also has a history of anxiety. She states that she is having tetany of her arms. On exam has tetany of the arms right worse than left. normal neuro exams. has spasms of arms and face noted. potassium 3.2. lactic 5.3. mg .6. gave ativan and feeling better. gave mg 2grams. discussed with dr bear said to give 3 grams total and reevualate. doing better after [address] bear who says to discharge to follow up with james blair. gave script for mg and k. repeat lactic normal. repeat mg 2.2. patient understand and agrees with plan. - Diagnoses Differential Diagnoses/HQI/PQRI: Metabolic Abnormality, Sepsis, Urinary Tract Infection Provider Diagnoses: Hypomagnesemia, Muscle spasm Discharge - Sign-Out/Discharge Documenting (check all that apply): Discharge/Admit/Transfer - Discharge Plan Condition: Good Disposition: HOME Prescriptions: Magnesium Oxide TAB* [MagOx 400 TAB*] 400 mg PO BID #60 tab Potassium Chlor TAB* [Klor Con ER TAB*] 20 meq PO DAILY #30 tab.er Patient Education Materials: Hypomagnesemia (ED) Referrals: [facility] [Outside] Additional Instructions: take potassium once a day take magnesium twice a day drink fluids and eat small snacks throughout the day Follow up with care [facility] on wednesday Return to ED if develop any new or worsening symptoms - Billing Disposition and Condition Condition: GOOD Disposition: Home
[2018-01-19] MEDS ORDERED: Magnesium Chloride EC TAB* 64 MG PO ONE (11:52)
[2018-01-19 16:12] VITALS: BP 145/95
== END 2018-01-19 16:14 | disposition home or self-care (01) ==
LOC: ED 10:03
DX: E83.42 Hypomagnesemia (principal); R25.2 Cramp and spasm; I10 Essential (primary) hypertension; Z87.891 Personal history of nicotine dependence
CPT/HCPCS: 36415; 80053; 80320; 82803; 83605; 83735; 84443; 85025; 86140; 93005; 96374; 96375; 99283; A9270-GY; G0480; J2060; J3411; J3475

== ENCOUNTER 2018-03-01 08:27 | Inpatient (IN) | payer MEDICAID ==
[2018-03-01] MEDS: NS 0.9% 1000 ML* 1,000 ML IV ONE ×2 (08:30→09:33)
[2018-03-01] MEDS ORDERED: Adenosine* 3 MG/ML VIAL IV PUSH ONE ×2 (08:37→09:49)
[2018-03-01] MEDS ORDERED: Adenosine* 3 MG/ML VIAL ONE (08:39)
[2018-03-01 08:56] LABS: ABS Basophils 0.1 10^3/ul (0-0.2); ABS Eosinophils 0.1 10^3/ul (0-0.6); ABS Lymphocytes 2.4 10^3/ul (1.0-4.8); ABS Nucleated RBC 0 10^3/ul; Eosinophil % 1.2 % (0-6); Hematocrit 36 % (35-47); Hemoglobin 12.7 g/dl (12.0-16.0); Lymphocyte % 27.6 % (25-47); Mean Corpuscular HGB Conc 35 g/dl (31-36); Mean Corpuscular Hemoglobin 34 pg (27-31); Mean Corpuscular Volume 96 fL (80-97); Mean Platelet Volume 7.3 um3 (7.4-10.4); Nucleated Red Blood Cells % 0; Platelet Count 138 10^3/ul (150-450); Red Blood Count 3.72 10^6/ul (4.00-5.40); Red Cell Distribution Width 15 % (10.5-15); White Blood Count 8.6 10^3/ul (3.5-10.8)
--- OUTSIDE RECORDS SUMMARY | 2018-03-01 09:00 | XMS REPORT ---
:1980 External Reference #:[id number] Author Organization [facility] Address [address] [place] [address] Phone [phone] Care Team Providers Name Role Phone Aimee Salazar M.D. Care Team Information Access Lead Unavailable Problems Date Description Provider Status Onset: 02/09/2018 Acute renal failure syndrome Flako Malagon MD Active Onset: 02/09/2018 Nausea and vomiting Flako Malagon MD Active Onset: 02/09/2018 Left upper quadrant pain Flako Malagon MD Active Onset: 02/09/2018 Headache Flako Malagon MD Active Onset: 01/24/2018 Cramp and spasm Flako Malagon MD Active Onset: 01/24/2018 Elevated levels of transaminase & lactic acid Flako Malagon MD Active dehydrogenase Onset: 01/24/2018 Hypokalemia Flako Malagon MD Active Onset: 01/24/2018 Disorder of magnesium metabolism Flako Malagon MD Active Onset: 01/24/2018 Anxiety state Flako Malagon MD Active Onset: 01/24/2018 Chronic alcoholism in remission Flako Malagon MD Active Onset: 01/24/2018 Essential hypertension Flako Malagon MD Active Social History Type Date Description Comments Smoking Patient has never smoked Allergies, Adverse Reactions, Alerts Date Description Reaction Status Severity Comments 01/24/2018 NKDA active Medications Medication Date Status Form Strength Qnty SIG Indications Ordering Provider Potassium Active Tablets ER 20Meq 1 by Unknown Chloride ER 00 mouth every day Magnesium Active Capsules 400mg 1 by Unknown Oxide -MG 00 mouth Supplement twice a day Metoprolol Active Tablets ER 25mg 1 by Unknown Succinate ER 00 24HR mouth every day Amlodipine Active Tablets 5mg 1 by Unknown Besylate 00 mouth every day Cozaar Active Tablets 100mg 1 by Unknown 00 mouth every day Vital Signs Date Vital Result Comment 02/09/2018 Height 67 inches 5'7" Weight 174.00 lb Heart Rate 90 /min BP Systolic 150 mmHg BP Diastolic 120 mmHg BP Systolic Sitting 160 mmHg Lue average cuff BP Diastolic Sitting 123 mmHg Lue average cuff Respiratory Rate 16 /min Body Temperature 97.7 F Pain Level 7 headache, 5/10 abdominal LUQ, O2 % BldC Oximetry 100 % BMI (Body Mass Index) 27.2 kg/m2 01/24/2018 Weight 182.00 lb Heart Rate 76 /min BP Systolic Sitting 145 mmHg BP Diastolic Sitting 99 mmHg Respiratory Rate 18 /min Body Temperature 96.9 F Pain Level 1 O2 % BldC Oximetry 100 % Results Test Date Test Result H/L Range Note Laboratory test finding 02/09/2018 Sodium Random Urine <pending> Laboratory test finding 02/09/2018 Urine Magnesium Random <pending> Creatinine Random Urine <pending> Basic Metabolic Panel 02/09/2018 Sodium 136 mmol/L 135-145 Potassium 2.9 mmol/L Low 3.5-5.0 Chloride 97 mmol/L Low 101-111 Co2 Carbon Dioxide 29 mmol/L 22-32 Anion Gap 10 mmol/L 2-11 Glucose 98 mg/dL 70-100 Blood Urea Nitrogen 9 mg/dL 6-24 Creatinine 1.20 mg/dL High 0.51-0.95 BUN/Creatinine Ratio 7.5 Low 8-20 Calcium 9.1 mg/dL 8.6-10.3 Egfr Non- 50.8 >60 Egfr 61.5 >60 1 Laboratory test finding 02/09/2018 Magnesium 1.3 mg/dL Low 1.9-2.7 Laboratory test finding 02/08/2018 Magnesium <pending> Liver Function Panel 01/24/2018 Total Protein 6.6 g/dL 6.4-8.9 Albumin 3.8 g/dL 3.2-5.2 Globulin 2.8 g/dL 2-4 Albumin/Globulin Ratio 1.4 1-3 Total Bilirubin 0.70 mg/dL 0.2-1.0 Direct Bilirubin 0.20 mg/dL High 0.03-0.18 Indirect Bilirubin 0.5 mg/dL 0.3-1.0 Alkaline Phosphatase 64 U/L 34-104 Alt 67 U/L High 7-52 Ast 61 U/L High 13-39 Inr/Protime 01/24/2018 Inr 0.79 0.77-1.02 Basic Metabolic Panel 01/24/2018 Sodium 140 mmol/L 135-145 Potassium 3.3 mmol/L Low 3.5-5.0 Chloride 104 mmol/L 101-111 Co2 Carbon Dioxide 26 mmol/L 22-32 Anion Gap 10 mmol/L 2-11 Glucose 95 mg/dL 70-100 Blood Urea Nitrogen 5 mg/dL Low 6-24 Creatinine 0.75 mg/dL 0.51-0.95 BUN/Creatinine Ratio 6.7 Low 8-20 Calcium 8.7 mg/dL 8.6-10.3 Egfr Non- 87.4 >60 Egfr 105.8 >60 2 Laboratory test finding 01/24/2018 Magnesium 1.5 mg/dL Low 1.9-2.7 Laboratory test finding 01/24/2018 Magnesium <pending> 1 Because ethnic data is not always readily available, this report includes an eGFR for both -Americans and non- Americans. The National Kidney Disease Education Program (NKDEP) does not endorse the use of the MDRD equation for patients that are not between the ages of 18 and 70, are , have extremes of body size, muscle mass, or nutritional status, or are non- or non-. According to the National Kidney Foundation, irrespective of diagnosis, the stage of the disease is based on the level of kidney function: Stage Description GFR(mL/min/1.73 m(2)) 1 Kidney damage with normal or decreased GFR 90 2 Kidney damage with mild decrease in GFR 60-89 3 Moderate decrease in GFR 30-59 4 Severe decrease in GFR 15-29 5 Kidney failure <15 (or dialysis) 2 Because ethnic data is not always readily available, this report includes an eGFR for both -Americans and non- Americans. The National Kidney Disease Education Program (NKDEP) does not endorse the use of the MDRD equation for patients that are not between the ages of 18 and 70, are , have extremes of body size, muscle mass, or nutritional status, or are non- or non-. According to the National Kidney Foundation, irrespective of diagnosis, the stage of the disease is based on the level of kidney function: Stage Description GFR(mL/min/1.73 m(2)) 1 Kidney damage with normal or decreased GFR 90 2 Kidney damage with mild decrease in GFR 60-89 3 Moderate decrease in GFR 30-59 4 Severe decrease in GFR 15-29 5 Kidney failure <15 (or dialysis) Procedures Description No Information Encounters Type Date Location Provider CPT E/M Dx Office Visit 02/09/2018 9:30a [facility] [place] [address] E83.42 Of [facility] R25.2 F10.21 E87.6 I10 F41.9 R74.0 R51 R10.12 R11.2 N17.9 Office Visit 09/12/2017 10:45a [facility], [place]TONIO Edgar [address] F10.10 Hospitalists I10 F41.9 Office Visit 09/10/2017 10:44a [facility] [address] F10.10 Assoc, Hospitalists N.P. I10 F41.9 Plan of Care Future Appointment(s):02/23/2018 9:30 am - Flako Malagon MD at [facility]02/09/2018 - Flako Malagon MDE83.42 HypomagnesemiaComments:Continue Magnesium Oxide 400mg twice a day.R25.2 Cramp and upxzyU77.21 Alcohol dependence , in remissionComments:Continue abstinenceContinue AA yqjadbfvU22.6 HypokalemiaComments:Continue Potassium Chloride Extended Release 20 MEq daily.I10 Essential (primary) hypertensionComments:Please hold your losartan for 3 days. Continue your metoprolol and amlodipine. Please record your blood pressures in a log book and bring to us next week. Twice a day please.F41.9 Anxiety disorder, itxicfhpsqwY82.0 Nonspec elev of levels of transamns & lactic acid [id number] HeadacheComments:Please treat with tylenol and not ibuprofen.R10.12 Left upper quadrant painR11.2 Nausea with vomiting, kgukpwjdinaA50.9 Acute kidney failure, unspecifiedComments:Please stop the ibuprofen and try tylenol for your headaches instead.
[2018-03-01] MEDS ORDERED: LORazepam INJ* 2 MG/ML 1 ML VIAL ONE (09:05)
[2018-03-01] MEDS ORDERED: Diltiazem IV VIAL* 5 MG/ML 10 ML VIAL IV SLOW PU ONE (09:08)
[2018-03-01] MEDS ORDERED: LORazepam INJ* 2 MG/ML 1 ML VIAL IV PUSH ONE ×2 (09:23→10:26)
--- NOTE | 2018-03-01 09:28 | ED ---
HPI Cardiac - HPI Summary HPI Summary: patient is a 37-year-old female with a history of alcohol abuse, anxiety, intermittent tremors and shaking, hypomagnesemia and hypokalemia presenting to the ED with symptoms of anxiety, shaking, stating her bilateral lower and upper extremities are "locking up." She denies any medications, drug use, alcohol use. She states she is an alcoholic and has been not using for some time. She denies any cough medication or other lrbx-uio-ivqxxvi medications. She did not take her beta kathy or her other 2 cardiac medications this morning. She is unsure of the other medications. She states symptoms have been intermittent 2 days. Patient currently on potassium and magnesium. - History of Current Complaint Chief Complaint: EDGeneral Stated Complaint: ANXIETY Time Seen by Provider: 03/01/18 08:33 Hx Obtained From: Patient Onset/Duration: Started Hours Ago Timing: Constant Initial Severity: Severe Current Severity: Severe Pain Intensity: 8 Pain Scale Used: 0-10 Numeric Chest Pain Radiates: No Aggravating Factor(s): Nothing Alleviating Factor(s): Nothing Associated Signs and Symptoms: Positive: Vision Changes, Anxiety, Numbness, Tingling. Negative: Chills, Lightheadedness, Diaphoresis, Calf Pain/Swelling, Vomiting, Bloody Sputum - Risk Factors Pulmonary Embolism Risk Factors: Negative - Recommendation Cardiac Risk Factors: Hypertension, Elevated Lipids, Family History TAD Risk Factors: Smoking, Hypertension, Family Hx AMI/ACS Risk Factors: Hypertension, Smoking Tuberculosis Risk Factors: Malnutrition, Alcohol Abuse - Additional Pertinent History Primary Care Physician: [id number] - Allergy/Home Medications Allergies/Adverse Reactions: Allergies Allergy/AdvReac Type Severity Reaction Status Date / Time No Known Allergies Allergy Verified 03/01/18 09:13 PMH/Surg Hx/FS Hx/Imm Hx Previously Healthy: Yes Endocrine/Hematology History: Denies: Hx Diabetes Cardiovascular History: Reports: Hx Hypertension Sensory History: Denies: Hx Contacts or Glasses, Hx Hearing Aid Opthamlomology History: Denies: Hx Contacts or Glasses Psychiatric History: Reports: Hx Anxiety - Immunization History Hx Pertussis Vaccination: No Immunizations Up to Date: Yes Infectious Disease History: No Infectious Disease History: Denies: Traveled Outside the [place] in Last 30 Days - Family History Known Family History: Positive: Unknown - Her parents a while ago - Social History Occupation: Unemployed Lives: Alone Alcohol Use: Daily Alcohol Amount: 1/2 bottle liquor daily Hx Substance Use: No Substance Use Type: Reports: None Hx Tobacco Use: Yes Smoking Status (MU): Former Smoker Review of Systems Constitutional: Negative Negative: Fever, Chills, Fatigue, Skin Diaphoresis Negative: Palpitations, Chest Pain Negative: Shortness Of Breath, Cough Genitourinary: Negative Positive: no symptoms reported, see HPI Negative: Arthralgia, Myalgia Skin: Negative Positive: Anxious All Other Systems Reviewed And Are Negative: Yes Physical Exam Triage Information Reviewed: Yes Vital Signs On Initial Exam: Initial Vitals Temp Pulse Resp BP Pulse Ox 97.9 F 183 40 173/132 98 03/01/18 08:29 03/01/18 08:29 03/01/18 08:29 03/01/18 08:29 03/01/18 08:29 Vital Signs Reviewed: Yes Appearance: Positive: Ill-Appearing, Signs of Trauma Skin: Positive: Other - red, hot, dry Head/Face: Positive: Normal Head/Face Inspection Eyes: Positive: Other: - pupils 5 and dilated bilaterally Neck: Positive: No Lymphadenopathy Respiratory/Lung Sounds: Positive: Breath Sounds Present Cardiovascular: Positive: Tachycardia - 183 Bowel Sounds: Positive: Present, Hypoactive - decreased bowel sounds Musculoskeletal: Positive: Other - tremors and ataxia Neurological: Positive: Other - rapid speech Psychiatric: Positive: Anxious AVPU Assessment: Alert - Levasy Coma Scale Best Eye Response: 4 - Spontaneous Best Motor Response: 6 - Obeys Commands Best Verbal Response: 5 - Oriented Coma Scale Total: 15 Diagnostics - Vital Signs Vital Signs Temp Pulse Resp BP Pulse Ox 03/01/18 09:02 142 10 159/104 96 03/01/18 08:45 36 03/01/18 08:30 29 173/132 03/01/18 08:29 97.9 F 183 40 173/132 98 - Laboratory Lab Results: Lab Results 03/01/18 Range/Units 08:45 WBC 8.6 (3.5-10.8) 10^3/ul RBC 3.72 L (4.00-5.40) 10^6/ul Hgb 12.7 (12.0-16.0) g/dl Hct 36 (35-47) % MCV 96 (80-97) fL MCH 34 H (27-31) pg MCHC 35 (31-36) g/dl RDW 15 (10.5-15) % Plt Count 138 L (150-450) 10^3/ul MPV 7.3 L (7.4-10.4) um3 Neut % (Auto) 58.5 (38-83) % Lymph % (Auto) 27.6 (25-47) % [place] % (Auto) 11.9 H (0-7) % Eos % (Auto) 1.2 (0-6) % Baso % (Auto) 0.8 (0-2) % Absolute Neuts (auto) 5.0 (1.5-7.7) 10^3/ul Absolute Lymphs (auto) 2.4 (1.0-4.8) 10^3/ul Absolute Monos (auto) 1.0 H (0-0.8) 10^3/ul Absolute Eos (auto) 0.1 (0-0.6) 10^3/ul Absolute Basos (auto) 0.1 (0-0.2) 10^3/ul Absolute Nucleated RBC 0 10^3/ul Nucleated RBC % 0 ESR Pending Result Diagrams: 03/01/18 08:45 03/01/18 08:45 Lab Statement: Any lab studies that have been ordered have been reviewed, and results considered in the medical decision making process. Re-Evaluation - Re-Evaluation First Eval Change: Improved - patient improved with 1mg IV ativan Disposition - Course Course Of Treatment: During the course of treatment, the patient is evaluated for symptoms of anxiety. On arrival her vital signs are 173/132, heart rate of 183, respirations 40. EKG shows SVT. She is given 2 doses of 6 mg adenosine. She is refusing to 12 mg dose. During both 6 mg doses the SVT broke but returned immediately following. Without medications, the heart rate began to lower spontaneously to 130. She was ordered Cardizem, but this was not given due to the spontaneous lowering of heart rate. Blood pressure lowered as well. She was given 1 mg Ativan with good relief. On physical examination, she appears very flushed and red, and hydrocephalus, agitated delirium, decreased bowel sounds, tachycardia. She also states she has not been urinating well and feels dehydrated. While she denies any drugs or alcohol, these appear to be symptoms of anticholinergic/cough medication/or alcohol withdrawal. Potassium at 2.6, lactic at 10.8 and magnesium less than 0.5. She is given oral and IV potassium as well as IV magnesium. Discussed case with hospitalist, Dr. Moreau who agrees to admit area is. - Diagnoses Provider Diagnoses: Hypomagnesemia, Hypokalemia, Muscle spasm, SVT (supraventricular tachycardia) Is Visit Related: No - Critical Care Time Critical Care Time: 30-74 min - CC time 30 minutes d/t medications/heart rate Discharge - Sign-Out/Discharge Documenting (check all that apply): Patient Departure Signing out patient TO: Harriet Moreau - Discharge Plan Condition: Stable Disposition: ADMITTED TO [facility] Referrals: No Primary Care Phys,NOPCP [Primary Care Provider] - - Billing Disposition and Condition Condition: STABLE Disposition: Admitted to [facility]
[2018-03-01 09:38] LABS: EGFR Non-African American 42.2 (>60)
[2018-03-01] MEDS ORDERED: Potassium Chlor TAB* 20 MEQ TAB.ER PO ONE ×2 (09:40→09:50)
[2018-03-01] MEDS ORDERED: Magnesium Sulf 4 GM/100 ML IV* 4,000 MG/100 ML BAG IVPB ONE (09:40)
[2018-03-01] MEDS ORDERED: NS 0.9% 1000 ML* 1,000 ML IV ONE (09:49)
--- NOTE | 2018-03-01 09:53 | RAD ---
Indication: Chest pain. Single frontal view of the chest performed at 0930 hours was reviewed. Comparison is made with previous exam dated January 17, 2015.. No mediastinal shift is noted. Heart is of normal size and configuration. Lung bauer appear clear. IMPRESSION: NO ACTIVE CARDIOPULMONARY DISEASE IS NOTED.
[2018-03-01] MEDS ORDERED: Ondansetron INJ* 2 MG/ML VIAL IV PRN (10:15)
[2018-03-01] MEDS: KCL 20 MEQ/100 ML IVPREMIX* 20 MEQ/100 ML BAG IV SCH ×3 (10:27→15:59)
[2018-03-01] MEDS: NS 0.9% 1000 ML* 1,000 ML IV SCH ×2 (10:31→18:07)
[2018-03-01] MEDS ORDERED: Calcium Gluconate INJ* 1 GM in NS 0.9% 100 ML* 100 ML IVPB ONE (10:37)
[2018-03-01] MEDS: Metoprolol Succinate XL TAB* 25 MG PO SCH (13:17)
[2018-03-01] MEDS: LORazepam TAB(*) 0.5 MG PO PRN ×3 (15:00→21:58)
--- NOTE | 2018-03-01 18:59 | HP ---
CC: Dr. Malagon, [facility].* HISTORY AND PHYSICAL: DATE OF ADMISSION: 03/01/18 PRIMARY CARE PROVIDER: Dr. Flako Malagon, [facility]. CHIEF COMPLAINT: Shaking and hand contractures. HISTORY OF PRESENT ILLNESS: Ms. Babcock is a 37-year-old female who has a history of alcohol abuse, who states that she has not had a drink in over a week - and-a-half, anxiety, and hypertension, who presents to the emergency room with complaints of tremors and hand contractures. The patient states that for the last several months, she has had episodes where she "locks up." She has associated shortness of breath and finds it difficult to ambulate. She also states that her face feels numb just prior to these locking up episodes. The patient states that when this happens, she cannot speak. She feels as if her legs lock up as well and she cannot walk. She has had several falls. The patient has been seen twice in the [facility] for similar complaints due to an emergency room visit where she was found to have markedly low potassium and magnesium. The patient is supposed to be taking potassium and magnesium supplementation; however, states she has not done so over the last 2 days. She states she has not taken any of her medications over the last 2 days as she has not had them with her. The patient does admit to anxiety. She admits to having chest pain when she feels incredibly anxious as well as shortness of breath and nausea. The patient again denies any recent alcohol use. She denies any recreational drug use. PAST MEDICAL HISTORY: 1. Hypertension. 2. Anxiety. 3. EtOH abuse - in remission. 4. Hypokalemia and hypomagnesemia. 5. Probable chronic kidney disease stage 3. 6. Elevated LFTs. PAST SURGICAL HISTORY: Hernia repair. MEDICATIONS: 1. Amlodipine 10 mg p.o. daily. 2. Potassium chloride 20 mEq p.o. daily. 3. Metoprolol XL 25 mg p.o. daily. 4. Magnesium oxide 400 mg p.o. twice daily. 5. Losartan 100 mg p.o. daily. ALLERGIES: No known drug allergies. FAMILY HISTORY: Mom in her 50s of an OR. Dad in his 30s of colon cancer. SOCIAL HISTORY: The patient does not smoke. She does admit to drinking on occasion, though no longer daily. No recreational drug use. She is unemployed. She is not . She has no children. REVIEW OF SYSTEMS: A complete 11-system review of systems is obtained. Pertinent positives and negatives are as per HPI and otherwise negative. PHYSICAL EXAMINATION GENERAL: The patient is a well-developed young female, lying in bed, slightly flushed in the face, tremulous, but in no acute distress. VITAL SIGNS: Blood pressure 154/108, pulse 107, respirations 20, temp 97.9, O2 sat 97% on room air. HEENT: Pupils are dilated despite being in a well-lit room. Extraocular muscles were intact. Oropharynx is clear. Oral mucosa is somewhat dry. There is no submandibular, cervical or supraclavicular adenopathy. Thyroid is not enlarged. No thyroid nodules are noted. PULMONARY: Lungs are clear to auscultation bilaterally. CARDIAC: Normal S1, S2. Heart rate is tachycardic and regular. There is no lower extremity edema. ABDOMEN: Bowel sounds are present. Abdomen is soft, nontender, nondistended. MUSCULOSKELETAL: There is no cyanosis or clubbing of the digits. There is full active range of motion of all 4 extremities. NEUROLOGIC: Cranial nerves II through XII appear to be grossly intact. Sensation is intact to light touch throughout. Strength is 5/5 and symmetric in both upper and lower extremities bilaterally. SKIN: Warm and dry. There are no rashes or abrasions noted at the patient's right forearm and bilateral knees. Her feet are dirty. PSYCH: The patient is alert. She appears somewhat euphoric. LABORATORY DATA: WBC 8.6, hemoglobin 12.7, hematocrit 36, platelets 138. Sodium 137, potassium 2.6, chloride 90, CO2 21, anion gap 26, BUN 11, creatinine 1.41, glucose 210, calcium 7.5. Magnesium less than 0.5. Bilirubin 2.6, AST 52, ALT 53, alk phos 63. CPK 495. Troponin 0.01. CRP, high sensitivity is 25.72. Albumin 3.9. Serum alcohol less than 10. EKG, initially the patient was in SVT with a heart rate of 170 to 180. Subsequent EKG revealed sinus tachycardia without any acute ST, T-wave abnormalities. Chest x-ray reveals clear lungs bilaterally to my interpretation. ASSESSMENT AND PLAN: Ms. Babcock is a 37-year-old female with history of hypertension, anxiety, and alcohol abuse reportedly in remission who presents to the emergency room with complaints of tremors and hand contractures. 1. Severe hypokalemia and hypomagnesemia. The etiology behind this is not clear. The patient's potassium has essentially been low since her admission in August 2017. She is supposed to be on supplementation for this. Per the [facility], it is likely the patient is noncompliant with her medications. Additionally, her magnesium level remains severely low at this point, though frequently it is not within the normal range. It is unclear if she may be losing magnesium or why her electrolytes are severely deranged. I do question whether or not the patient has been truthful about abstaining from alcohol and perhaps this severe electrolyte abnormalities are related to that. The patient will receive aggressive potassium and magnesium supplementation. A phosphorus level will be obtained. If her levels are difficult to replete, we will consider Nephrology consultation. 2. Tremors and muscle cramping. I suspect this may be related to hypocalcemia. The patient's calcium is low at 7.5. She has normal albumin making this likely a true level. She will be given calcium gluconate 1 g IV. We will monitor for improvement of symptoms. The locking up issue has been an ongoing problem for which she has been seeing Dr. Malagon in clinic. Again, I suspect this is likely related to her electrolyte derangements; however, perhaps , there is some anxiety component as well. 3. Supraventricular tachycardia. The patient's heart rate was in the 170s to 180s when she arrived to the emergency room. She received 2 doses of adenosine. She reportedly briefly broke with the second dose of adenosine; however, this was a nonsustained response. The patient ultimately ended up converting to normal sinus rhythm on her own. The patient does admit to feeling quite anxious and she appears perhaps somewhat anxious lying in the bed. I suspect the supraventricular tachycardia is related to her electrolyte derangements; however, another substance perhaps could have led to some of these symptoms though the patient adamantly denies using any recreational drugs. The patient will be restarted on her usual dose of metoprolol XL. She states that she has not taken this in a couple of days and perhaps this too has contributed to her rapid heart rate. 4. Elevated liver function tests. The patient's bilirubin, AST, and ALT are all elevated and this has been chronic. They are within her usual range. I suspect this is from alcohol use. I am not going to work this up at this time. 5. Elevated CPK. Perhaps this is from muscle contractures. We will get follow up CPK level tomorrow. 6. History of alcohol abuse. The patient will be monitored on the [facility] protocol every 2 hours and he will have Ativan available as needed. 7. Hypertension. The patient's blood pressure is moderately elevated at this point. She again has not taken her usual medication she states for the last couple of days, though according to the clinic notes, every time she has gone to the clinic, she has not taken her medications prior to that appointment and states that she will take them after though. It is unclear if she has been doing so or not. She will be continued on her usual dose of amlodipine and metoprolol. I am going to hold her losartan for now given her mildly elevated creatinine. 8. Elevated creatinine. The patient's creatinine is elevated at 1.41. I suspect this is from volume depletion. Her baseline creatinine is difficult to determine, but appears to be in the 0.7 to 1.0 range. She previously had been using ibuprofen, but this was recommended to be stopped. Additionally, losartan could contribute. The patient's losartan will be held. She will be hydrated and her creatinine will be followed up. 9. Elevated anion gap. The patient has not had a lactic acid measured. This will be obtained now. It is possible she has a significant lactic acidosis related to her likely volume depletion and overall state. We will check the lactic acid and follow up labs later today. 10. DVT prophylaxis. According to the Adult Thrombosis Prophylaxis Risk Factor Assessment Guide, the patient has a total risk factor score of 0 making her low- risk. SCDs will be utilized as DVT prophylaxis. 11. Code status is full. TIME SPENT: 65 minutes were spent admitting this patient. [id number]/[facility] #: [id number] KRISTEN
[2018-03-01] MEDS ORDERED: diPHENhydraMINE PO* 25 MG PO PRN (19:52)
[2018-03-01] MEDS: Magnesium Oxide TAB* 400 MG PO SCH (20:59)
[2018-03-02] MEDS: LORazepam TAB(*) 0.5 MG PO PRN (00:14)
[2018-03-02] MEDS ORDERED: LORazepam TAB(*) 1 MG PO PRN ×2 (00:15→04:51)
[2018-03-02] MEDS ORDERED: Ziprasidone IM INJ* 20 MG/ML VIAL IM ONE (02:14)
[2018-03-02] MEDS ORDERED: Haloperidol INJ IV/IM* 5 MG/ML AMP IM ONE (04:50)
[2018-03-02 08:04] LABS: Hematocrit 30 % (35-47); Hemoglobin 10.5 g/dl (12.0-16.0); Mean Corpuscular HGB Conc 35 g/dl (31-36); Mean Corpuscular Hemoglobin 34 pg (27-31); Mean Corpuscular Volume 98 fL (80-97); Red Blood Count 3.07 10^6/ul (4.00-5.40); Red Cell Distribution Width 15 % (10.5-15); White Blood Count 5.8 10^3/ul (3.5-10.8)
[2018-03-02 08:17] LABS: EGFR Non-African American 94.7 (>60)
[2018-03-02 08:32] LABS: ABS Basophils 0 10^3/ul (0-0.2); ABS Eosinophils 0.2 10^3/ul (0-0.6); ABS Lymphocytes 1.4 10^3/ul (1.0-4.8); ABS Monocytes 0.6 10^3/ul (0-0.8); ABS Neutrophils 3.7 10^3/ul (1.5-7.7); ABS Nucleated RBC 0 10^3/ul; Eosinophil % 2.9 % (0-6); Lymphocyte % 23.6 % (25-47); Mean Platelet Volume 8.3 um3 (7.4-10.4); Nucleated Red Blood Cells % 0.1; Platelet Count 86 10^3/ul (150-450)
[2018-03-02] MEDS ORDERED: NS 0.9% 100 ML* 100 ML ONE (08:58)
[2018-03-02] MEDS ORDERED: Magnesium Sulfate IV* 3 GM in NS 0.9% 100 ML* 100 ML IVPB ONE (09:00)
[2018-03-02] MEDS: Metoprolol Succinate XL TAB* 25 MG PO SCH (10:11)
[2018-03-02] MEDS: Magnesium Oxide TAB* 400 MG PO SCH ×2 (10:11→20:51)
[2018-03-02] MEDS ORDERED: Calcium Gluconate INJ* 1 GM in NS 0.9% 50 ML* 50 ML IVPB ONE ×4 (10:11→23:00)
[2018-03-02] MEDS: amLODIPine TAB* 5 MG PO SCH (10:11)
[2018-03-02] MEDS ORDERED: KCL 20 MEQ/100 ML IVPREMIX* 20 MEQ/100 ML BAG IV SCH (11:00)
[2018-03-02] MEDS ORDERED: Cholecalciferol TAB* 1000 UNITS PO SCH (12:00)
[2018-03-02] MEDS ORDERED: Ergocalciferol CAP* 50000 UNIT PO SCH (12:00)
[2018-03-02] MEDS: Thiamine TAB* 100 MG TAB PO SCH (12:35)
[2018-03-02] MEDS: Folic Acid TAB* 1 MG PO SCH (12:35)
--- NOTE | 2018-03-02 13:16 | RAD ---
Indication: Fall, head injury. CT of the brain was performed without IV contrast. No prior study is available for comparison. Ventricular structures are midline. No midline shift is noted. The extra-axial spaces are unremarkable. There is no evidence of intracranial mass or hemorrhage. No other high or low density lesions are identified. Mastoid air cells and paranasal sinuses are otherwise unremarkable. IMPRESSION: No intracranial mass or hemorrhage is noted.
[2018-03-02] MEDS: KCL 20 MEQ/100 ML IVPREMIX* 20 MEQ/100 ML BAG IV SCH ×3 (15:03→20:44)
[2018-03-02] MEDS ORDERED: Potassium Chloride LIQUID* 20 MEQ PACKET PO ONE (15:30)
[2018-03-02 18:24] LABS: EGFR Non-African American 99.6 (>60)
--- NOTE | 2018-03-02 18:37 | PN ---
Subjective Date of Service: 03/02/18 Interval History: Got ativan 1,1,2mg [2200],3mg [0000] for WAM,4mg[0500], haldol 5mg [0500] and geodon 20mg [0230]. Pt on examination this AM wanting to leave room, get phone and keys. was able to be redirected and slept often throughout the day. electrolyte repletion continues. 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 Pt relates she was away from her meds Wednesday, Wednesday. She has been avoiding staying at her house lest she get herself in trouble. This morning she reported that she drank 2 beer and 2 shots about 1.5 weeks ago. I talked to her friend Kiera by phone who related she was very concerned about Ada as she normally stays in touch almost daily but last saw her 2.5 weeks ago. Ada texted her that she thinks she needs inpatient alcohol rehab (about 1.5 weeks ago). Spent most of weekend with friend/former co-worker Brenton and had symptoms of weakness, shakiness often. Watched [employer] race Wednesday (attests sobriety). Legs buckled from her when saw women that "triggered her". She is very open to the idea of alcohol rehab at this period in time. Objective Active Medications: Amlodipine Besylate (Norvasc Tab*) 10 mg PO DAILY [facility] Last Admin: 03/02/18 10:11 Dose: 10 mg Diphenhydramine HCl (Benadryl Po*) 25 mg PO BEDTIME PRN PRN Reason: SLEEP Last Admin: 03/01/18 21:01 Dose: 25 mg Ergocalciferol (Drisdol Cap*) 50,000 unit PO Q7D [facility] Last Admin: 03/02/18 13:56 Dose: 50,000 unit Folic Acid (Folvite Tab*) 1 mg PO DAILY [facility] Last Admin: 03/02/18 12:35 Dose: 1 mg Potassium Chloride (Potassium Chloride 20 Meq/100 Ml Ivpremix*) 20 meq in 100 mls @ 50 mls/hr IV 1300,1500,1700 [facility] Stop: 03/02/18 18:59 Last Admin: 03/02/18 17:44 Dose: 50 mls/hr Magnesium Oxide (Magox 400 Tab*) 400 mg PO BID [facility] Last Admin: 03/02/18 10:11 Dose: 400 mg Metoprolol Succinate (Toprol Xl Tab*) 25 mg PO DAILY [facility] Last Admin: 03/02/18 10:11 Dose: 25 mg Ondansetron HCl (Zofran Inj*) 4 mg IV Q6H PRN PRN Reason: NAUSEA Thiamine HCl (Vitamin B-1 Tab*) 100 mg PO DAILY [facility] Last Admin: 03/02/18 12:35 Dose: 100 mg Vital Signs - 8 hr 03/02/18 03/02/18 03/02/18 12:29 12:36 13:56 Temperature 98.2 F Pulse Rate 87 Respiratory 20 16 16 Rate Blood Pressure 134/101 (mmHg) O2 Sat by Pulse 100 Oximetry 03/02/18 03/02/18 03/02/18 14:05 15:03 16:02 Temperature 97.5 F 97.2 F Pulse Rate 92 76 Respiratory 16 15 16 Rate Blood Pressure 121/89 132/99 (mmHg) O2 Sat by Pulse 100 96 Oximetry 03/02/18 18:02 Temperature 97.7 F Pulse Rate 103 Respiratory 16 Rate Blood Pressure 132/99 (mmHg) O2 Sat by Pulse 100 Oximetry Oxygen Devices in Use Now: None Appearance: Initially agitated, confused. Currently much calmer. Eyes: No Scleral Icterus Ears/Nose/Mouth/Throat: NL Teeth, Lips, Gums, Mucous Membranes Moist Neck: NL Appearance and Movements; NL JVP Respiratory: Symmetrical Chest Expansion and Respiratory Effort, Clear to Auscultation Cardiovascular: NL Sounds; No Murmurs; No JVD, RRR, No Edema Extremities: No Edema Skin: No Rash or Ulcers Neurological: Alert and Oriented x 3, NL Sensation, NL Muscle Strength and Tone , - - slightly tremulous FTN and resting. Nutrition: Taking PO's Result Diagrams: 03/02/18 06:59 03/02/18 17:58 Additional Lab and Data: Laboratory Results - last 24 hr 03/02/18 03/02/18 03/02/18 06:59 06:59 06:59 WBC 5.8 RBC 3.07 L Hgb 10.5 L Hct 30 L MCV 98 H MCH 34 H MCHC 35 RDW 15 Plt Count 86 L D MPV 8.3 Neut % (Auto) 63.5 Lymph % (Auto) 23.6 L [place] % (Auto) 9.7 H Eos % (Auto) 2.9 Baso % (Auto) 0.3 Absolute Neuts (auto) 3.7 Absolute Lymphs (auto) 1.4 Absolute Monos (auto) 0.6 Absolute Eos (auto) 0.2 Absolute Basos (auto) 0 Absolute Nucleated RBC 0 Nucleated RBC % 0.1 Hem Pathologist Commnt Sodium 142 Potassium 2.8 L Chloride 107 Carbon Dioxide 26 Anion Gap 9 BUN 7 Creatinine 0.70 Est GFR ( Amer) 114.6 Est GFR (Non-Af Amer) 94.7 BUN/Creatinine Ratio 10.0 Glucose 90 Calcium 7.3 L Ionized Calcium Magnesium 1.6 L Total Bilirubin AST ALT Alkaline Phosphatase Ammonia Total Creatine Kinase 536 H Total Protein Albumin Globulin Albumin/Globulin Ratio 25-OH Vitamin D Total < 7.0 L PTH Intact 6.6 Calcium (PTH Intact) 7.3 L 03/02/18 03/02/18 03/02/18 09:45 10:25 17:58 WBC RBC Hgb Hct MCV MCH MCHC RDW Plt Count MPV Neut % (Auto) Lymph % (Auto) [place] % (Auto) Eos % (Auto) Baso % (Auto) Absolute Neuts (auto) Absolute Lymphs (auto) Absolute Monos (auto) Absolute Eos (auto) Absolute Basos (auto) Absolute Nucleated RBC Nucleated RBC % Hem Pathologist Commnt Sodium 142 Potassium 3.3 L Chloride 107 Carbon Dioxide 27 Anion Gap 8 BUN 5 L Creatinine 0.67 Est GFR ( Amer) 120.5 Est GFR (Non-Af Amer) 99.6 BUN/Creatinine Ratio 7.5 L Glucose 105 H Calcium 7.8 L Ionized Calcium 3.80 L Magnesium 1.9 Total Bilirubin 1.00 D AST 71 H ALT 52 Alkaline Phosphatase 58 Ammonia 34 Total Creatine Kinase Total Protein 6.5 Albumin 3.8 Globulin 2.7 Albumin/Globulin Ratio 1.4 25-OH Vitamin D Total PTH Intact Calcium (PTH Intact) Assess/Plan/Problems-Billing Assessment: 37 yo female PMH Alcoholism, severe hypomagnesemia/phosphatemia p/w SVT, Mg 0.5 , K2.8 s/p adenosine 6mg x2. Occasional recent relapses with EtOH and admitting that she needs inpatient Rehab. - Patient Problems (1) SVT (supraventricular tachycardia) Current Visit: Yes Status: Acute Code(s): I47.1 - SUPRAVENTRICULAR TACHYCARDIA SNOMED Code(s): 3748878 Comment: resolved. in setting of profound electrolyte disturbance (2) Vitamin D deficiency Current Visit: Yes Status: Acute Code(s): E55.9 - VITAMIN D DEFICIENCY, UNSPECIFIED SNOMED Code(s): 13075835 (3) Hypocalcemia Current Visit: Yes Status: Acute Code(s): E83.51 - HYPOCALCEMIA SNOMED Code(s): 3035028 Comment: In setting of vitamin D deficiency (<7). calcium gluconate again. ionized Ca2+ in AM. PTH wnl. f/u Vitamin D 1,25 OH. (4) Hypomagnesemia Current Visit: Yes Status: Acute Code(s): E83.42 - HYPOMAGNESEMIA SNOMED Code(s): 499914493 Comment: In setting of nutritional deficiencies and alcoholism and medication noncompliance. No evidence of urinary magnesium losses as outpatient 3 weeks ago. Goal >2 (5) Hypokalemia Current Visit: Yes Status: Acute Code(s): E87.6 - HYPOKALEMIA SNOMED Code( s): 16027700 Comment: In setting of alcoholism, nutritional deficiencies, hypomag, medication noncompliance. Goal >4 (6) Alcohol abuse Current Visit: Yes Status: Acute Code(s): F10.10 - ALCOHOL ABUSE, UNCOMPLICATED SNOMED Code(s): 62553450 Comment: Patient texted her closest friend ~10 days in stating that she wanted inpatient alcohol rehab and seems aggreeable to this here today. Specifically denies other elicit substances including abuse of OTC like cough medicine. Tox screen negative. Pt scored on WAM and got increasing ativan but became quit altered/agitated, then got haldol/geodon. Many symptoms of alcohol withdrawal overlap with her underyling anxiety disorder, hypocalcemia, hypomag and hypokalemia and have improved with electrolyte repletion. stopping WAM and don't think additional benzos would be beneficial. mental status markedly improved. thiamine, folate supplementation thiamine serum drawn. (7) Thrombocytopenia Current Visit: Yes Status: Acute Code(s): D69.6 - THROMBOCYTOPENIA, UNSPECIFIED SNOMED Code(s): 645351174 Comment: in setting of EtOH abuse and 6L input yesterday. not on heparin. monitor CBC daily. (8) Family history of colon cancer in father Current Visit: Yes Status: Acute Code(s): Z80.0 - FAMILY HISTORY OF MALIGNANT NEOPLASM OF DIGESTIVE ORGANS SNOMED Code(s): 957089976 Comment: Pt needing outpatient colonoscopy given hx of paternal colon cancer age 33. (9) Macrocytic anemia Current Visit: Yes Status: Acute Code(s): D53.9 - NUTRITIONAL ANEMIA, UNSPECIFIED SNOMED Code(s): 88111281 Comment: folate, b12, iron panel, ferritin. likely 2/2 EtOH. (10) Anxiety Current Visit: No Status: Acute Code(s): F41.9 - ANXIETY DISORDER, UNSPECIFIED SNOMED Code(s): 17147075 Comment: QTc is currently prolonged but may improve with electrolyte repletion. trial SSRI or buspar once QTc improves. (11) HTN (hypertension) Current Visit: No Status: Acute Code(s): I10 - ESSENTIAL (PRIMARY) HYPERTENSION SNOMED Code(s): 48653561 Comment: metoprolol 25mg amlodipine 10mg (was actually 5mg) holding home losartan (in setting of ELÍAS) Status and Disposition: medicine inpatient. Needing/wanting inpatient EtOH rehab.
[2018-03-02] MEDS ORDERED: Potassium Chloride LIQUID* 20 MEQ PACKET PO SCH (19:00)
[2018-03-02] MEDS ORDERED: Magnesium Sulfate 1 GM IV* 1 GM/100 ML BAG IV ONE ×2 (19:45→22:00)
[2018-03-02] MEDS ORDERED: Acetaminophen TAB* 325 MG PO PRN (21:07)
[2018-03-03 05:56] LABS: EGFR Non-African American 115.3 (>60)
[2018-03-03 06:52] LABS: Hematocrit 32 % (35-47); Mean Corpuscular HGB Conc 34 g/dl (31-36); Mean Corpuscular Hemoglobin 34 pg (27-31); Mean Corpuscular Volume 98 fL (80-97); Mean Platelet Volume 8.9 um3 (7.4-10.4); Platelet Count 91 10^3/ul (150-450); Red Blood Count 3.25 10^6/ul (4.00-5.40); Red Cell Distribution Width 15 % (10.5-15); White Blood Count 5.6 10^3/ul (3.5-10.8)
[2018-03-03] MEDS ORDERED: Magnesium Sulfate IV* 3 GM in NS 0.9% 100 ML* 100 ML IVPB ONE (07:12)
[2018-03-03] MEDS ORDERED: Calcium Gluconate INJ* 1 GM in NS 0.9% 50 ML* 50 ML IVPB ONE (07:30)
[2018-03-03] MEDS: Magnesium Oxide TAB* 400 MG PO SCH ×2 (08:35→20:03)
[2018-03-03] MEDS: amLODIPine TAB* 5 MG PO SCH (08:36)
[2018-03-03] MEDS: Metoprolol Succinate XL TAB* 25 MG PO SCH (08:36)
[2018-03-03] MEDS: Thiamine TAB* 100 MG TAB PO SCH (08:36)
[2018-03-03] MEDS: Folic Acid TAB* 1 MG PO SCH (08:36)
[2018-03-03] MEDS ORDERED: Potassium Chloride LIQUID* 20 MEQ PACKET PO ONE (13:00)
--- NOTE | 2018-03-03 15:11 | PN ---
Subjective Date of Service: 03/03/18 Interval History: Feeling much better. Sleeping well. Eating great. No nausea/vomiting/abdominal pain/chest pain/SOB/headache. Normal BMs Ca2+ and Mag low, repleting. Pt attests that she is on board with going to alcohol rehab but then anxious about idea of going straight there. Attesting she would prefer to go home for a "few days" to "take care of her finances", "see her cats", and attend a DSS meeting next Wednesday for which she needs to show her ID and bank records (so that her friend Kiera Peng can go into her financial accounts if needed while she is gone. Feels like she would be "too stressed" if she can't go home first. Again attests that missed original DSS appoinment last week when she fell, hit her head and "woke up 1 1/2 days later". However before stating all this she got very anxious upon reflexion that Kiera and her would be away camping this weekend and usually she would stay with them after a hospitalization like this. Attests to occasional short term memory problems. Objective Active Medications: Acetaminophen (Tylenol Tab*) 650 mg PO Q6H PRN PRN Reason: FEVER/PAIN Amlodipine Besylate (Norvasc Tab*) 10 mg PO DAILY [facility] Last Admin: 03/03/18 08:36 Dose: 10 mg Diphenhydramine HCl (Benadryl Po*) 25 mg PO BEDTIME PRN PRN Reason: SLEEP Last Admin: 03/01/18 21:01 Dose: 25 mg Ergocalciferol (Drisdol Cap*) 50,000 unit PO Q7D [facility] Last Admin: 03/02/18 13:56 Dose: 50,000 unit Folic Acid (Folvite Tab*) 1 mg PO DAILY [facility] Last Admin: 03/03/18 08:36 Dose: 1 mg Magnesium Oxide (Magox 400 Tab*) 400 mg PO BID [facility] Last Admin: 03/03/18 08:35 Dose: 400 mg Metoprolol Succinate (Toprol Xl Tab*) 25 mg PO DAILY [facility] Last Admin: 03/03/18 08:36 Dose: 25 mg Ondansetron HCl (Zofran Inj*) 4 mg IV Q6H PRN PRN Reason: NAUSEA Thiamine HCl (Vitamin B-1 Tab*) 100 mg PO DAILY [facility] Last Admin: 03/03/18 08:36 Dose: 100 mg Vital Signs - 8 hr 03/03/18 03/03/18 08:00 08:37 Pulse Rate 102 Respiratory 20 16 Rate Blood Pressure 140/97 (mmHg) O2 Sat by Pulse 99 Oximetry Oxygen Devices in Use Now: None Appearance: NAD Eyes: No Scleral Icterus, PERRLA Ears/Nose/Mouth/Throat: NL Teeth, Lips, Gums, Mucous Membranes Moist Neck: NL Appearance and Movements; NL JVP Respiratory: Symmetrical Chest Expansion and Respiratory Effort, Clear to Auscultation Cardiovascular: NL Sounds; No Murmurs; No JVD, RRR Extremities: No Edema, No Clubbing, Cyanosis Skin: No Rash or Ulcers Neurological: Alert and Oriented x 3, - - AAOx3. slightly tremulous on exam. no asterxis. no nystagmus observed. Nutrition: Taking PO's Result Diagrams: 03/03/18 05:32 03/03/18 05:32 Additional Lab and Data: Laboratory Results - last 24 hr 03/02/18 03/02/18 03/03/18 06:59 17:58 05:32 WBC RBC Hgb Hct MCV MCH MCHC RDW Plt Count MPV Hem Pathologist Commnt Sodium 142 139 Potassium 3.3 L 4.2 Chloride 107 109 Carbon Dioxide 27 24 Anion Gap 8 6 BUN 5 L 4 L Creatinine 0.67 0.59 Est GFR ( Amer) 120.5 139.6 Est GFR (Non-Af Amer) 99.6 115.3 BUN/Creatinine Ratio 7.5 L 6.8 L Glucose 105 H 99 Calcium 7.8 L 8.0 L Ionized Calcium Magnesium 1.9 1.8 L Iron 52 TIBC 314 % Saturation 17 Unsat Iron Binding 262 Transferrin 224 Ferritin 185.0 Total Bilirubin 1.00 D AST 71 H ALT 52 Alkaline Phosphatase 58 Total Protein 6.5 Albumin 3.8 Globulin 2.7 Albumin/Globulin Ratio 1.4 Vitamin B12 405 Folate 8.47 03/03/18 03/03/18 05:32 05:32 WBC 5.6 RBC 3.25 L Hgb 11.0 L Hct 32 L MCV 98 H MCH 34 H MCHC 34 RDW 15 Plt Count 91 L MPV 8.9 Hem Pathologist Commnt Sodium Potassium Chloride Carbon Dioxide Anion Gap BUN Creatinine Est GFR ( Amer) Est GFR (Non-Af Amer) BUN/Creatinine Ratio Glucose Calcium Ionized Calcium 4.16 L Magnesium Iron TIBC % Saturation Unsat Iron Binding Transferrin Ferritin Total Bilirubin AST ALT Alkaline Phosphatase Total Protein Albumin Globulin Albumin/Globulin Ratio Vitamin B12 Folate Assess/Plan/Problems-Billing Assessment: 37 yo female PMH Alcoholism, severe hypomagnesemia/phosphatemia p/w SVT, Mg 0.5 , K2.8 s/p adenosine 6mg x2. Hypocalcemic. Recent relapses with EtOH. Says she wants inpatient Rehab but also saying she would prefer a few days at home first. - Patient Problems (1) Alcohol abuse Current Visit: Yes Status: Acute Code(s): F10.10 - ALCOHOL ABUSE, UNCOMPLICATED SNOMED Code(s): 43255838 Comment: Patient texted her closest friend ~10 days in stating that she wanted inpatient alcohol rehab and seems aggreeable to this still though is hedging greatly when the idea is broached about direct transfer. She talked with Jolynn Dutton today and referrals to 4 inpatient units associated closely with medical facilities ([facility], [facility], [facility], [facility]) have been sent. Await replies. Another resource is the [employer] mobile unit that could be a second option for assessment. Specifically denied other elicit substances including abuse of OTC like cough medicine. Tox screen negative. Given initial dysphoria and dilated pupils there was concern for potential robotripping. continue new thiamine, folate supplementation. Night of 03/01 morning of 03/02. Pt scored on WAM and got increasing ativan but became quit altered/agitated, then got haldol/geodon. Many symptoms of alcohol withdrawal overlap with her underyling anxiety disorder, hypocalcemia, hypomag and hypokalemia and have improved with electrolyte repletion. we have now stopped WAM and don't think additional benzos would be beneficial. mental status markedly improved. f/u thiamine serum drawn. attests to short term memory issues. (2) SVT (supraventricular tachycardia) Current Visit: Yes Status: Acute Code(s): I47.1 - SUPRAVENTRICULAR TACHYCARDIA SNOMED Code(s): 3736559 Comment: resolved. in setting of profound electrolyte disturbance (3) Vitamin D deficiency Current Visit: Yes Status: Acute Code(s): E55.9 - VITAMIN D DEFICIENCY, UNSPECIFIED SNOMED Code(s): 50420690 Comment: continue ergocalciferol 50,000U weekly. (4) Hypocalcemia Current Visit: Yes Status: Acute Code(s): E83.51 - HYPOCALCEMIA SNOMED Code(s): 6603911 Comment: In setting of vitamin D deficiency (<7). calcium gluconate again today. f/u Vitamin D 1,25 OH. (5) Hypomagnesemia Current Visit: Yes Status: Acute Code(s): E83.42 - HYPOMAGNESEMIA SNOMED Code(s): 918448627 Comment: In setting of nutritional deficiencies and alcoholism and medication noncompliance. No evidence of urinary magnesium losses as outpatient 3 weeks ago. Goal >2 (6) Hypokalemia Current Visit: Yes Status: Acute Code(s): E87.6 - HYPOKALEMIA SNOMED Code( s): 96773158 Comment: improved, replete today. In setting of alcoholism, nutritional deficiencies, hypomag, medication noncompliance. Goal >4 (7) Thrombocytopenia Current Visit: Yes Status: Acute Code(s): D69.6 - THROMBOCYTOPENIA, UNSPECIFIED SNOMED Code(s): 510896175 Comment: in setting of EtOH abuse and 6L input yesterday. not on heparin. monitor CBC daily. (8) Family history of colon cancer in father Current Visit: Yes Status: Acute Code(s): Z80.0 - FAMILY HISTORY OF MALIGNANT NEOPLASM OF DIGESTIVE ORGANS SNOMED Code(s): 565185195 Comment: Pt needing outpatient colonoscopy given hx of paternal colon cancer age 34. (9) Macrocytic anemia Current Visit: Yes Status: Acute Code(s): D53.9 - NUTRITIONAL ANEMIA, UNSPECIFIED SNOMED Code(s): 43366581 Comment: folate, b12, iron panel, ferritin. likely 2/2 EtOH. (10) Anxiety Current Visit: No Status: Acute Code(s): F41.9 - ANXIETY DISORDER, UNSPECIFIED SNOMED Code(s): 85980941 Comment: Recheck EKG to check QTc (had been prolonged but may improve with electrolyte repletion. trial SSRI or buspar once QTc improves. (11) HTN (hypertension) Current Visit: No Status: Acute Code(s): I10 - ESSENTIAL (PRIMARY) HYPERTENSION SNOMED Code(s): 69658837 Comment: metoprolol 25mg amlodipine 10mg (previous home was actually 5mg, only briefly increased to 10mg) had held home losartan given ELÍAS(now resolved) and with BP controlled will continue to do so. Status and Disposition: medicine inpatient. Awaiting inpatient EtOH rehab referral results which would be GREATLY preferred to home discharge.
[2018-03-03] MEDS ORDERED: LORazepam INJ* 2 MG/ML 1 ML VIAL IV PUSH PRN (19:45)
[2018-03-04] MEDS: Metoprolol Succinate XL TAB* 25 MG PO SCH (09:42)
[2018-03-04] MEDS: Folic Acid TAB* 1 MG PO SCH (09:42)
[2018-03-04] MEDS: Magnesium Oxide TAB* 400 MG PO SCH ×2 (09:43→19:46)
[2018-03-04] MEDS: amLODIPine TAB* 5 MG PO SCH (09:43)
[2018-03-04] MEDS: Thiamine TAB* 100 MG TAB PO SCH (09:43)
--- NOTE | 2018-03-04 13:27 | DS ---
CC: Dr. Malagon, Dr. Botello, [facility]* DATE OF ADMISSION: 03/01/2018. DATE OF DISCHARGE: 03/05/2018. PRIMARY CARE PROVIDER: None. She is following up with [facility]. MY ATTENDING PHYSICIAN FOR TODAY: Dr. Corley* (dictated by Sushil Newton NP). HOSPITAL COURSE: This is a 37-year-old female patient with a long-standing history of alcohol abuse and intoxication. The patient stated that she had stopped drinking approximately a [id number] prior to her admission. She does have a history of hypertension and anxiety as well. The patient states that she had tremors and hand contractures for the last several months, but had serious episodes since she has stopped drinking, including episodes where she feels like her hands are locking up and also some facial numbness. The patient did have imaging in the emergency department and laboratories. Imaging of her head was negative for any acute neurologic deficits. She was also found to be in supraventricular tachycardia with a heart rate in the 170s to 180s. She also had severe profound electrolyte disturbances. Her potassium was 2.6, magnesium was less than 0.5. The patient had her electrolytes repleted. She was given Adenosine times two doses and then had nonsustained response after initially converting. Ultimately she did convert on her own after having electrolyte infusions. She was admitted and placed on Telemetry. She did not have any further episodes of SVT. Her laboratories have normalized and she has been placed back on her home medications. She did have some moderately elevated blood pressure. I think there was some noncompliance with her medication regimen. The patient was prescribed supplements prior to these events that she was not taking and also may not have been taking her blood pressure medications as well. The patient ultimately normalized and was cleared for discharge. She has been working closely with Social Work on a safe discharge plan given her history of alcohol abuse. They had made referrals for inpatient alcohol detoxification and treatment; however, we have not been able to obtain a bed. The patient will have outpatient follow-up with [facility] who has a mobile response service, who will see the patient in her home for now to ensure a safe discharge. She will be discharged in the morning when her family is available to pick her up and also monitor her while she is at home. So, she will be discharged on the morning of the at 9:00 a.m. Social Work has set up her follow-up with [facility] to address her alcohol addiction. PHYSICAL EXAMINATION: On the day of discharge, the patient is alert, mildly anxious, in no acute distress. Vital Signs: Currently, blood pressure 128/85, heart rate ranging between 80 and 100, respiratory rate 20, O2 saturation 100 percent on room air with a temperature of 98.2. HEENT: The patient is atraumatic, normocephalic. PERRLA with nonicteric sclerae. Neck: Supple, nontender. No JVD noted, no carotid bruit auscultated. Cardiovascular: S1, S2 present. No murmurs, gallops or rubs noted. Rate and rhythm are currently regular. Lungs: Clear bilaterally to auscultation with no wheezing, rhonchi or rales. Abdomen: Soft, nontender, nondistended. Positive bowel sounds all four quadrants. : Deferred. Musculoskeletal: There is no clubbing, no cyanosis, and no edema. She has +2 distal pulses palpable. She has a steady gait and full range of motion. Neurologic: She is grossly intact. Psychiatric : She is cooperative and appropriate, however she is extremely anxious and highly animated, but appropriate. LABORATORY DATA: WBC 5.6, RBC 3.25, hemoglobin 11, hematocrit 32, platelets 91 ; sodium 138, potassium 4.0, chloride 109, CO2 23, BUN 5, creatinine 0.61, GFR 111, glucose 98, calcium 8.5, ionized calcium 4.48, magnesium ranging from 1.7 to 1.9, iron 52, TIBC 314, iron saturation 17, transferrin 224, ferritin 185, bilirubin 1.00, AST 71, ALT 52, alk phos 58, ammonia 34, protein 6.5, B12 405, vitamin D less than 7, folate 8.47, TSH 3.69, PTH 6.6, calcium 7.3. IMAGING: The patient had a brain CT on 03/02/5018. CAT scan findings show no intracranial mass, hemorrhage, or other pathology noted. FOLLOW-UPS: The patient was instructed to follow-up with the [facility]. An appointment will be made for her. She has followed up with [facility] in the past. She will also have follow-up with the staff at [facility]. She has been instructed to call to follow-up with an assessment and coordinate inpatient placement. DISCHARGE DIAGNOSES: 1. Alcohol withdrawal. 2. Electrolyte imbalances, severe, secondary to noncompliance with medication regimen and secondary to number one. 3. Hypertensive urgency. 4. Supraventricular tachycardia, now resolved. 5. Anxiety. MEDICATIONS ON DISCHARGE: 1. Amlodipine 10 mg daily. 2. K Chlor 20 mEq daily. 3. Metoprolol Succinate XL 25 mg daily. 4. Mag Ox 400 mg two times a day. 5. Losartan 100 mg daily. 6. Thiamine 100 mg daily. 7. Ergocalciferol 50,000 units p.o. q.7 days, to start on March 09 times 4 weeks. The patient was discharged in stable condition. All questions were answered. The patient states her understanding of her follow-ups and medications at the time of discharge. Again, she will be discharged in the care of family tomorrow morning at 9:00 a.m. This has been coordinated with Social Work and the patient. SUSHIL NEWTON, ASC[employer] [id number]/CPS #: [id number] KRISTEN
[2018-03-05 06:21] LABS: EGFR Non-African American 108.9 (>60)
[2018-03-05 08:24] VITALS: BP 132/95
[2018-03-05] MEDS: Magnesium Oxide TAB* 400 MG PO SCH (08:25)
[2018-03-05] MEDS: Metoprolol Succinate XL TAB* 25 MG PO SCH (08:25)
[2018-03-05] MEDS: Thiamine TAB* 100 MG TAB PO SCH (08:25)
[2018-03-05] MEDS: Folic Acid TAB* 1 MG PO SCH (08:25)
[2018-03-05] MEDS: amLODIPine TAB* 5 MG PO SCH (08:25)
== END 2018-03-05 10:35 | disposition home or self-care (01) | DRG 775 ==
LOC: ED 08:27 → MEDTELE 10:15
PROVIDERS: ADMIT Hospitalist; ATTEND Internal Medicine
DX: F10.239 Alcohol dependence with withdrawal, unspecified (principal); I47.1 Supraventricular tachycardia; Y90.0 Blood alcohol level of less than 20 mg/100 ml; I16.0 Hypertensive urgency; F41.9 Anxiety disorder, unspecified; E87.6 Hypokalemia; E83.42 Hypomagnesemia; I12.9 Hypertensive chronic kidney disease with stage 1 through stage 4 chronic kidney disease, or unspecified chronic kidney disease; N18.3 Chronic kidney disease, stage 3 (moderate); E83.51 Hypocalcemia; R94.5 Abnormal results of liver function studies; E55.9 Vitamin D deficiency, unspecified; D69.6 Thrombocytopenia, unspecified; D53.9 Nutritional anemia, unspecified; Z91.14 Patient's other noncompliance with medication regimen; Z79.899 Other long term (current) drug therapy; Z82.49 Family history of ischemic heart disease and other diseases of the circulatory system; Z80.0 Family history of malignant neoplasm of digestive organs
CPT/HCPCS: 36415; 70450; 71045; 80048; 80051; 80053; 80307; 80320; 82140; 82306; 82330; 82550; 82607; 82652; 82728; 82746; 83036; 83540; 83550; 83605; 83735; 83970; 84100; 84425; 84443; 84484; 85025; 85027; 85060; 85652; 86141; 93005; 99284; A9270-GY; G0480; J0153; J0610; J1630; J2060; J3475; J3480; J3486; J3490

== ENCOUNTER 2018-03-17 15:53 | Emergency (ER) | payer MEDICAID ==
--- NOTE | 2018-03-17 16:01 | ED ---
Complex/Multi-Sys Presentation - HPI Summary HPI Summary: 37 y/o female BIBA c/o sudden onset episode lightheadedness and vomiting today at around 14:00. Pt has vomited multiple times today due to her anxiety, per pt. Pt was walking downtown today and had sudden onset lightheadedness, then began c/o N/V. Pt c/o sudden onset leg weakness recently. Associated sx: SOB. PMHx HTN. Pt seen in the ED 2 weeks ago for the same sx. - History Of Current Complaint Hx Obtained From: Patient Onset/Duration: Sudden Onset Associated Signs And Symptoms: Positive: Weakness - leg, SOB, Nausea, Vomiting, Other - anxious, lightheadedness - Allergies/Home Medications Allergies/Adverse Reactions: Allergies Allergy/AdvReac Type Severity Reaction Status Date / Time No Known Allergies Allergy Verified 03/17/18 16:13 PMH/Surg Hx/FS Hx/Imm Hx Previously Healthy: No Endocrine/Hematology History: Denies: Hx Diabetes Cardiovascular History: Reports: Hx Hypertension Respiratory History: Reports: Hx Asthma Sensory History: Denies: Hx Contacts or Glasses, Hx Hearing Aid Opthamlomology History: Denies: Hx Contacts or Glasses Psychiatric History: Reports: Hx Anxiety, Hx Depression - Surgical History Surgery Procedure, Year, and Place: hernia repair at age 9 - Family History Known Family History: Positive: Unknown - Her parents a while ago - Social History Alcohol Use: Pt admits to 2x a week usage currently Alcohol Amount: "quite a bit" Hx Substance Use: No Substance Use Type: Reports: None Substance Use Comment - Amount & Last Used: Per pt, 1.5 weeks prior to admission Hx Tobacco Use: Yes Smoking Status (MU): Former Smoker Review of Systems Constitutional: Negative Eyes: Negative ENT: Negative Cardiovascular: Negative Positive: Shortness Of Breath Positive: Vomiting, Nausea Genitourinary: Negative Musculoskeletal: Negative Skin: Negative Neurological: Other - lightheadedness Positive: Weakness - leg Positive: Anxious All Other Systems Reviewed And Are Negative: No Physical Exam - Summary Physical Exam Summary: Appearance: Alert, conversive, nontoxic appearing Skin: Warm, dry, no mottling, no rashes, no contusions HEENT: EOMI, PERRL, moist mucous membranes Neck: No masses on the neck, supple Respiratory: Clear to auscultation, breath sounds present, no rales, no rhonchi , no wheezes Cardiovascular: RRR, pulses are symmetrical in both lower and upper extremities Abdomen: Soft, non-tender Bowel Sounds: Present Musculoskeletal: No CVA tenderness, no obvious deformity, moving all extremities in a grossly normal manner Neurological: A&Ox3, CN II-XII Intact, moving all extremities symmetrically Psychiatric: Anxious. Triage Information Reviewed: Yes Vital Signs Reviewed: Yes Diagnostics - Laboratory Result Diagrams: 03/17/18 16:46 03/17/18 16:46 Lab Statement: Any lab studies that have been ordered have been reviewed, and results considered in the medical decision making process. Re-Evaluation - Re-Evaluation 1 Re-Evaluation Time: 19:25 Comment: Still subjectively has vertigo-like symptoms 2 Re-Evaluation Time: 20:50 Change: Improved - Belly benign. I personally walked the pt around the entire ED. Complex Multi-Symp Course/Dx Assessment/Plan: 37 y/o female BIBA c/o sudden onset episode lightheadedness and vomiting today at around 14:00. In the ED course, pt given toradol, ativan, fluids and potassium chloride for low potassium levels. Pt feels better in the ED, ambulatory around the entire ED. Pt will be d/c home. - Diagnoses Provider Diagnoses: Hypokalemia, UTI (urinary tract infection), Elevated bilirubin, Dehydration Discharge - Sign-Out/Discharge Documenting (check all that apply): Patient Departure - Discharge Plan Condition: Stable Disposition: HOME Referrals: No Primary Care Phys,NOPCP [Primary Care Provider] - - Attestation Statements Document Initiated by Scribe: Yes Documenting Scribe: Cesar Avery Provider For Whom Scribe is Documenting (Include Credential): Chana Kahn MD Scribe Attestation: ICesar, scribed for Chana Kahn MD on 03/17/18 at 2103.
[2018-03-17] MEDS ORDERED: Ketorolac INJ* 30 MG/ML 1 ML VIAL IV PUSH ONE (16:34)
[2018-03-17] MEDS ORDERED: LORazepam INJ* 2 MG/ML 1 ML VIAL IV PUSH ONE (16:34)
[2018-03-17] MEDS ORDERED: NS 0.9% 1000 ML* 1,000 ML IV ONE ×2 (16:34→19:35)
[2018-03-17 16:54] LABS: ABS Basophils 0 10^3/ul (0-0.2); ABS Eosinophils 0 10^3/ul (0-0.6); ABS Lymphocytes 0.6 10^3/ul (1.0-4.8); ABS Monocytes 0.5 10^3/ul (0-0.8); ABS Neutrophils 6.6 10^3/ul (1.5-7.7); ABS Nucleated RBC 0 10^3/ul; Eosinophil % 0.2 % (0-6); Hematocrit 33 % (35-47); Hemoglobin 11.9 g/dl (12.0-16.0); Lymphocyte % 8.2 % (25-47); Mean Corpuscular HGB Conc 36 g/dl (31-36); Mean Corpuscular Hemoglobin 34 pg (27-31); Mean Corpuscular Volume 95 fL (80-97); Mean Platelet Volume 6.8 um3 (7.4-10.4); Nucleated Red Blood Cells % 0.1; Platelet Count 242 10^3/ul (150-450); Red Cell Distribution Width 15 % (10.5-15); White Blood Count 7.8 10^3/ul (3.5-10.8)
--- OUTSIDE RECORDS SUMMARY | 2018-03-17 17:00 | XMS REPORT ---
:1980 External Reference #:[id number] Author Organization [facility] Address [address] [place] [address] [place] [address] Phone [phone] Care Team Providers Name Role Phone Aimee Salazar M.D. Care Team Information Promotions Assistant Unavailable Problems Date Description Provider Status Onset: 02/09/2018 Family history of malignant neoplasm of Flako Clemens MD Active gastrointestinal tract Onset: 02/09/2018 Acute renal failure syndrome Flako Clemens MD Active Onset: 02/09/2018 Nausea and vomiting Flako Clemens MD Active Onset: 02/09/2018 Left upper quadrant pain Flako Clemens MD Active Onset: 02/09/2018 Headache Flako Clemens MD Active Onset: 01/24/2018 Cramp and spasm Flako Clemens MD Active Onset: 01/24/2018 Elevated levels of transaminase & lactic acid Flako Clemens MD Active dehydrogenase Onset: 01/24/2018 Hypokalemia Flako Clemens MD Active Onset: 01/24/2018 Disorder of magnesium metabolism Flako Clemens MD Active Onset: 01/24/2018 Anxiety state Flako Clemens MD Active Onset: 01/24/2018 Chronic alcoholism in remission Flako Clemens MD Active Onset: 01/24/2018 Essential hypertension Flako Clemens MD Active Social History Type Date Description Comments Smoking Patient has never smoked Allergies, Adverse Reactions, Alerts Date Description Reaction Status Severity Comments 01/24/2018 NKDA active Medications Medication Date Status Form Strength Qnty SIG Indications Ordering Provider Potassium Active Tablets ER 20Meq 60tabs Take 2 Daphney Schaeffer ER 018 pills (40 MD MEq) once a day. Zofran Active Tablets 4mg 30tabs Take 1 R11.2 Flako Clemens, 018 tab every MD 6 hours as needed for vomiting. Magnesium Active Capsules 400mg 1 by Unknown Oxide -MG 000 mouth Supplement twice a day Metoprolol Active Tablets ER 25mg 1 by Unknown Succinate ER 000 24HR mouth every day Amlodipine Active Tablets 5mg 1 by Unknown Besylate 000 mouth every day Cozaar Active Tablets 100mg 1 by Unknown 000 mouth every day Potassium Hx Tablets ER 20Meq 1 by Unknown Chloride ER 000 - mouth every day 018 Vital Signs Date Vital Result Comment 02/09/2018 [...] H/L Range Note Laboratory test finding 02/09/2018 Magnesium 1.3 mg/dL Low 1.9-2.7 Basic Metabolic Panel 02/09/2018 Sodium 136 mmol/L [...] 61.5 >60 1 Laboratory test finding 02/09/2018 Creatinine Random Urine 729.17 mg/dL Urine Magnesium Random 02/09/2018 Urine Magnesium Random 7 mg/dL 2 Creatinine Concentration 676 mg/dL Magnesium/Creatinine Ratio 0.010 mg/mg >=0.035 3 CBC Auto Diff 02/09/2018 White Blood Count 6.4 10^3/uL 3.5-10.8 Red Blood Count 3.68 10^6/uL Low 4.00-5.40 Hemoglobin 12.6 g/dL 12.0-16.0 Hematocrit 36 % 35-47 Mean Corpuscular Volume 97 fL 80-97 Mean Corpuscular Hemoglobin 34 pg High 27-31 Mean Corpuscular HGB Conc 35 g/dL 31-36 Red Cell Distribution Width 16 % High 10.5-15 Platelet Count 104 10^3/uL Low 150-450 Mean Platelet Volume 8.4 um3 7.4-10.4 Abs Neutrophils 4.4 10^3/uL 1.5-7.7 Abs Lymphocytes 1.0 10^3/uL 1.0-4.8 Abs Monocytes 0.8 10^3/uL 0-0.8 Abs Eosinophils 0.2 10^3/uL 0-0.6 Abs Basophils 0 10^3/uL 0-0.2 Abs Nucleated RBC 0 10^3/uL Granulocyte % 69.2 % 38-83 Lymphocyte % 15.7 % Low 25-47 Monocyte % 11.9 % High 0-7 Eosinophil % 3.0 % 0-6 Basophil % 0.2 % 0-2 Nucleated Red Blood Cells % 0.1 Inr/Protime 02/09/2018 Inr 0.88 0.77-1.02 Liver Function Panel 02/09/2018 Total Protein 7.4 g/dL 6.4-8.9 Albumin 4.2 g/dL 3.2-5.2 Globulin 3.2 g/dL 2-4 Albumin/Globulin Ratio 1.3 1-3 Total Bilirubin 2.00 mg/dL High 0.2-1.0 Direct Bilirubin 0.40 mg/dL High 0.03-0.18 Indirect Bilirubin 1.6 mg/dL High 0.3-1.0 Alkaline Phosphatase 72 U/L 34-104 Alt 46 U/L 7-52 Ast 58 U/L High 13-39 Laboratory test finding 02/09/2018 Sodium Random Urine < 18 mmol/L 4 Laboratory test finding 02/08/2018 Magnesium <pending> Liver [...] Egfr Non- 87.4 >60 Egfr 105.8 >60 5 Laboratory test finding 01/24/2018 Magnesium 1.5 mg/dL [...] 5 Kidney failure <15 (or dialysis) 2 ADDITIONAL INFORMATION This test has been modified from the montessori paraprofessional's instructions. Its performance characteristics were determined by [facility] in a manner consistent with CLIA requirements. This test has not been cleared or approved by the U.S. Food and Drug Administration. 3 Test Performed by: [facility] - [address] [address] 4 Copy Result to: Flako CLEMENS ([id number]) 5 Because ethnic data is not always readily [...] Dx Office Visit 02/09/2018 9:30a [facility] [place] [address] N17.9 Spanish Tutor R25.2 E83.42 E87.6 I10 R10.12 R74.0 F10.21 F41.9 R51 R11.2 Z80.0 Office Visit 01/24/2018 9:30a [facility] [place] [address] E83.42 Spanish Tutor R25.2 F10.21 E87.6 I10 F41.9 R74.0 Office Visit 09/12/2017 10:45a [facility] [place] [address] F10.10 Hospitalists I10 F41.9 Office Visit 09/10/2017 10:44a [facility] [place] [address] F10.10 [facility]oc[facility] I10 F41.9 Plan of Care 02/09/2018 - Flako Clemens MDN17.9 Acute kidney failure, unspecifiedComments:Your kidney function has worsened since your last visit, likely related to dehydration related to your nausea/vomiting. Please stop the ibuprofen and try Tylenol for your headaches instead.Please hold your losartan for 3 days. Please stay well hydrated. Zofran written for nausea.R25.2 Cramp and spasmComments:Your electrolytes are still low. Please Continue the potassium and magnesium supplementation. We arechecking your urine electrolytes to try to clarify why your Magnesium is still so low.E83.42 HypomagnesemiaComments: Continue Magnesium Oxide 400mg twice a day.E87.6 HypokalemiaComments:Increase Potassium Chloride Extended Release to 40 MEq daily.I10 Essential (primary) hypertensionComments:Please hold your losartan for 3 days. Continue your metoprolol 25mg daily. Please take two pills of your amlodipine for the next 3 days then return to once a day. Please record your blood pressures in a log book and bring to us next week. Twice a day please.R10.12 Left upper quadrant painComments:We will be checking some additional lab work (CBC, LFTs). Given your father's history of from colon cancer at age 32 you should have a colonoscopy given you have never had one. You are being referred to Gastroenterology.R74.0 Nonspec elev of levels of transamns & lactic acid dehydrgnseComments:We are checking your liver function and thinness of your blood given your new bruising and abdominalpains.F10.21 Alcohol dependence, in remissionComments:Continue abstinenceContinue AA [id number] Anxiety disorder , unspecifiedComments:We discussed trial of an SSRI but we will delay for now given your current complaints of intermittent nausea since this was your original side effect from the Zoloft you tried for a few months ago. Will likely trial Paxil at next visit if feeling better. Please follow-up with Ashley Dubose.R51 HeadacheComments:Please treat with tylenol and not ibuprofen. Please continue your blood pressure medications (with temporary modifications as above). Goal 130/80.R11.2 Nausea with vomiting, unspecifiedNew Medication:Zofran 4 mgZ80.0 Family history of malignant neoplasm of digestive organsComments:Colonoscopy as above.Referral:Cesar Patel MD, Gastroenterology
--- OUTSIDE RECORDS SUMMARY | 2018-03-17 17:00 | XMS REPORT ---
:1980 External Reference #:[id number] Author Organization [facility] Address [address] [place] [address] Phone [phone] Care Team Providers Name Role Phone Aimee Salazar M.D. Care Team Information Tester Operator Unavailable Problems Date Description Provider Status Onset: [...] This test has been modified from the physical therapy manager's instructions. Its performance characteristics were determined by [facility] in a manner consistent with CLIA requirements. This test has not been cleared or approved by the U.S. Food and Drug Administration. 3 Test Performed by: [facility] - [address] [address] 4 Copy Result to: Flako CLEMENS ([id number]) 5 Because ethnic data is not always [...] CPT E/M Dx Office Visit 02/09/2018 9:30a [facility] [place] [address] N17.9 Frame Bender R25.2 E83.42 E87.6 I10 R10.12 R74.0 F10.21 F41.9 R51 R11.2 Z80.0 Office Visit 01/24/2018 9:30a [facility] [place] [address] E83.42 Frame Bender R25.2 F10.21 E87.6 I10 F41.9 R74.0 Office Visit 09/12/2017 10:45a [facility] [address] F10.10 Hospitalists I10 F41.9 Office Visit 09/10/2017 10:44a [facility] [place] [address] F10.10 Assoc,pc Hospitalists [facility].P[facility] I10 F41.9 Plan [...] abdominalpains.F10.21 Alcohol dependence, in remissionComments:Continue abstinenceContinue AA [id number] Anxiety disorder , unspecifiedComments:We discussed trial of [...]
--- OUTSIDE RECORDS SUMMARY | 2018-03-17 17:00 | XMS REPORT ---
:1980 External Reference #:[id number] Author Organization [facility] Address [address] [place] [address] [place] [address] Phone [phone] Care Team Providers Name Role Phone Aimee Salazar M.D. Care Team Information Air Director Unavailable Problems Date Description Provider Status Onset: [...] This test has been modified from the food stand manager's instructions. Its performance characteristics were determined by [facility] in a manner consistent with CLIA requirements. This test has not been cleared or approved by the U.S. Food and Drug Administration. 3 Test Performed by: [facility] - [address] [address] 4 Copy Result to: Flako CLEMENS ([id number]) 5 Because ethnic data is not always [...] CPT E/M Dx Office Visit 02/09/2018 9:30a [facility] [place] [address] N17.9 Vice President Of Consulting Services R25.2 E83.42 E87.6 I10 R10.12 R74.0 F10.21 F41.9 R51 R11.2 Z80.0 Office Visit 01/24/2018 9:30a [facility] [place] [address] E83.42 Vice President Of Consulting Services R25.2 F10.21 E87.6 I10 F41.9 R74.0 Office Visit 09/12/2017 10:45a [facility] [place] [address] F10.10 Hospitalists I10 F41.9 Office Visit 09/10/2017 10:44a [facility] [place] [address] F10.10 Assoc,pc Hospitalists [facility].P[facility] I10 F41.9 Plan [...] abdominalpains.F10.21 Alcohol dependence, in remissionComments:Continue abstinenceContinue AA [id number] Anxiety disorder , unspecifiedComments:We discussed trial of [...]
[2018-03-17 17:17] LABS: EGFR Non-African American 75.7 (>60)
[2018-03-17] MEDS ORDERED: Potassium Chlor TAB* 20 MEQ TAB.ER PO ONE (17:37)
[2018-03-17 18:22] LABS: Urine Appearance Clear; Urine Blood Negative (Negative); Urine Color Yellow; Urine Ketones Trace (Negative); Urine Protein Negative (Negative); Urine Red Blood Cell Trace(0-2/hpf) (Absent); Urine Specific Gravity 1.006 (1.010-1.030); Urine Urobilinogen Negative (Negative); Urine White Blood Cell 1+(6-10/hpf) (Absent)
[2018-03-17] MEDS ORDERED: ALPRAZolam TAB* 0.5 MG ONE (21:14)
[2018-03-17 21:18] VITALS: BP 143/88
[2018-03-17] MEDS ORDERED: ALPRAZolam TAB* 0.5 MG PO ONE (21:19)
== END 2018-03-17 21:17 | disposition home or self-care (01) ==
LOC: ED 15:53
DX: E87.6 Hypokalemia (principal); N39.0 Urinary tract infection, site not specified; E80.7 Disorder of bilirubin metabolism, unspecified; E86.0 Dehydration; R53.1 Weakness; R42 Dizziness and giddiness; R11.2 Nausea with vomiting, unspecified; I10 Essential (primary) hypertension; Z87.891 Personal history of nicotine dependence
CPT/HCPCS: 36415; 80053; 81003; 81015; 83690; 84702; 85025; 87086; 96374; 96375; 99282; A9270-GY; J1885; J2060

== ENCOUNTER 2018-05-21 17:41 | Inpatient (IN) | payer OTHER ==
--- NOTE | 2018-05-21 19:25 | ED ---
Complex/Multi-Sys Presentation - HPI Summary HPI Summary: This patient is a 37 year old F presenting to [facility] with a chief complaint of constant burning chest pain that began last night. Today she states she has been constantly vomiting and with SOB.Patient additionally reports anxiety. PMHx of HTN and SVT, resulting in previous admissions. Patient reports previous visits to the ED due to her anxiety. - History Of Current Complaint Chief Complaint: EDChestPainROMI Time Seen by Provider: 05/21/18 19:21 Hx Obtained From: Patient Onset/Duration: Lasting Hours Timing: Constant Location: Pain At: - chest Character: Unable To Describe - burning Associated Signs And Symptoms: Positive: Weakness, SOB, Vomiting - Allergies/Home Medications Allergies/Adverse Reactions: Allergies Allergy/AdvReac Type Severity Reaction Status Date / Time No Known Allergies Allergy Verified 03/17/18 16:13 PMH/Surg Hx/FS Hx/Imm Hx Endocrine/Hematology History: Denies: Hx Diabetes Cardiovascular History: Reports: Hx Hypertension, Hx Supraventricular Ventricular Tachycardia Respiratory History: Reports: Hx Asthma Sensory History: Denies: Hx Contacts or Glasses, Hx Hearing Aid Opthamlomology History: Denies: Hx Contacts or Glasses Psychiatric History: Reports: Hx Anxiety, Hx Depression - Surgical History Surgery Procedure, Year, and Place: hernia repair at age 9 Infectious Disease History: No Infectious Disease History: Denies: Traveled Outside the [place] in Last 30 Days - Family History Known Family History: Positive: Cardiac Disease - ID - mother, Other - colon CA - father - Social History Alcohol Use: Pt admits to 2x a week usage currently Alcohol Amount: "quite a bit" Hx Substance Use: No Substance Use Type: Reports: None Substance Use Comment - Amount & Last Used: Per pt, 1.5 weeks prior to admission Hx Tobacco Use: Yes Smoking Status (MU): Former Smoker Review of Systems Positive: Chest Pain Positive: Shortness Of Breath Positive: Vomiting Positive: Weakness All Other Systems Reviewed And Are Negative: Yes Physical Exam - Summary Physical Exam Summary: Appearance: Well-appearing, Well-nourished, lying in bed comfortably. She is somewhat tremulous Skin: Warm, dry, no obvious rash Eyes: sclera anicteric, no conjunctival pallor ENT: mucous membranes moist, pharynx appears normal Neck: Supple, nontender Respiratory: Clear to auscultation, no signs of respiratory distress Cardiovascular: Normal S1, S2. No murmurs. Normal distal pulses in tibial and radial bilaterally. Tachycardic Abdomen: Soft, nontender, normal active bowel sounds present Musculoskeletal: Normal, Strength/ROM Intact Neurological: A&Ox3, awake and alert, mentation is normal, speech is fluent and appropriate Psychiatric: patient appears anxious Triage Information Reviewed: Yes Vital Signs On Initial Exam: Initial Vitals Temp Pulse Resp BP Pulse Ox 98.4 F 128 18 150/100 100 05/21/18 18:26 05/21/18 18:26 05/21/18 18:26 05/21/18 18:26 05/21/18 18:26 Vital Signs Reviewed: Yes Diagnostics - Vital Signs Vital Signs Temp Pulse Resp BP Pulse Ox 05/21/18 18:26 98.4 F 128 18 150/100 100 - Laboratory Result Diagrams: 05/21/18 19:41 05/21/18 19:41 Lab Statement: Any lab studies that have been ordered have been reviewed, and results considered in the medical decision making process. - Radiology CXR Radiology Interpretation Completed By: ED Physician - No acute disease. - EKG 1832 Cardiac Rate: Tachycardia - 126 BPM EKG Rhythm: Sinus Tachycardia Ectopy: None Complex Multi-Symp Course/Dx Course Of Treatment: A 37 y/o female presents with a couple days of burning chest pain with vomiting and SOB today. Patient additionally reports anxiety. While in ED patient reports a history of alcoholism and that she has been sober except for an episode of binge drinking a couple days ago. Patient is tachycardic and hypertensive while in the ED. Patient was given Morphine. Patient was given 2mg Ativan without improvement and was given 1mg of Ativan without improvement. CXR is negative for acute disease. Discussed patient with hospitalist, who agrees to admission. I suspect the patient is suffering from acute alcohol withdrawal, possibly early delirium tremens. - Diagnoses Provider Diagnoses: Alcohol withdrawal - Physician Notifications Discussed Care Of Patient With: Rupali Peter Time Discussed With Above Provider: 22:45 Instructed by Provider To: Admit As Inpatient Discharge - Sign-Out/Discharge Documenting (check all that apply): Patient Departure - admit - Discharge Plan Condition: Guarded Disposition: ADMITTED TO [facility] - Billing Disposition and Condition Condition: GUARDED Disposition: Admitted to [facility] - Attestation Statements Document Initiated by Scribe: Yes Documenting Scribe: Salena Cai Provider For Whom Manjinder is Documenting (Include Credential): Fabio Zelaya MD Scribe Attestation: I, Salena Cai, scribed for Fabio Zelaya MD on 05/22/18 at 0130. Scribe Documentation Reviewed: Yes Provider Attestation: The documentation as recorded by the joryibe, Salena Cai accurately reflects the service I personally performed and the decisions made by me, Fabio Zelaya MD
[2018-05-21] MEDS ORDERED: NS 0.9% 1000 ML* 2,000 ML IV ONE (19:28)
[2018-05-21] MEDS ORDERED: LORazepam INJ* 2 MG/ML 1 ML VIAL IV PUSH ONE ×2 (19:31→20:53)
[2018-05-21 19:58] LABS: ABS Basophils 0.1 10^3/ul (0-0.2); ABS Eosinophils 0 10^3/ul (0-0.6); ABS Lymphocytes 0.6 10^3/ul (1.0-4.8); ABS Monocytes 0.6 10^3/ul (0-0.8); ABS Neutrophils 10.9 10^3/ul (1.5-7.7); ABS Nucleated RBC 0 10^3/ul; Eosinophil % 0.1 % (0-6); Hematocrit 39 % (35-47); Hemoglobin 13.4 g/dl (12.0-16.0); Lymphocyte % 5.2 % (25-47); Mean Corpuscular HGB Conc 35 g/dl (31-36); Mean Corpuscular Hemoglobin 32 pg (27-31); Mean Corpuscular Volume 92 fL (80-97); Nucleated Red Blood Cells % 0; Platelet Count 106 10^3/ul (150-450); Red Blood Count 4.22 10^6/ul (4.00-5.40); Red Cell Distribution Width 14 % (10.5-15); White Blood Count 12.2 10^3/ul (3.5-10.8)
[2018-05-21 20:09] LABS: EGFR Non-African American 86.1 (>60)
[2018-05-21] MEDS ORDERED: Morphine VIAL* 4 MG/ML VIAL (1 ml vial) IV ONE (20:52)
[2018-05-21] MEDS ORDERED: Morphine INJ* 4 MG/ML 1 ML SYRINGE (NEW SYRINGE VERSION) ONE (21:38)
[2018-05-21] MEDS ORDERED: Morphine INJ* 4 MG/ML 1 ML SYRINGE (NEW SYRINGE VERSION) IV ONE (21:39)
--- NOTE | 2018-05-21 22:47 | RAD ---
EXAM: US Abdomen Limited, Right Upper Quadrant EXAM DATE/TIME: 05/21/2018 10:06 PM CLINICAL HISTORY: 37 years old, female; Pain; Abdominal pain; Epigastric; Additional info: Epigastric pain, elev lft's TECHNIQUE: Real-time ultrasound of the abdomen with image documentation. Examination was focused on the right upper quadrant. COMPARISON: US RENAL ARTB VL RENAL ART DOPPLER BILAT 09/10/2015 9:07 AM FINDINGS: Liver: Diffuse increased echogenicity of the liver may represent hepatic steatosis. No mass. Gallbladder: Echogenic sludge is present in the gallbladder. No definite stone identified. Gallbladder wall thickness measures 2.5 mm. Technologist reports no patient pain when imaged over the gallbladder. Common bile duct: Common bile duct measures 2.7 mm. Pancreas: Pancreas poorly visualized due to overlying bowel gas. Right kidney: Right kidney measures 11.3 x 5.0 x 6.0 cm. No mass or hydronephrosis. IMPRESSION: Biliary sludge without other findings of acute cholecystitis. To contact [facility] with a general question: [facility] - [phone] For direct physician to physician contact: Physician Hotline - [phone] [facility] ([facility] Facility ID #[id number])
[2018-05-21] MEDS ORDERED: LORazepam INJ* 2 MG/ML 1 ML VIAL IV PUSH PRN (22:57)
[2018-05-21] MEDS ORDERED: NS 0.9% 1000 ML* 1,000 ML IV SCH (23:00)
[2018-05-21] MEDS ORDERED: LORazepam TAB(*) 1 MG SCH (23:00)
[2018-05-21] MEDS ORDERED: Omeprazole CAP* 20 MG PO ONE (23:01)
[2018-05-21] MEDS ORDERED: hydrALAZINE IV* 20 MG/ML VIAL IV SLOW PU PRN (23:03)
[2018-05-21] MEDS ORDERED: Metoprolol Tartrate IV* 1 MG/ML 5 ML VIAL IV ONE (23:05)
[2018-05-21] MEDS ORDERED: QUEtiapine TAB* 25 MG PO ONE (23:50)
--- NOTE | 2018-05-22 00:39 | ADMNOTE ---
Subjective Date of Service: 05/21/18 Interval History: code status full this is a h/p for admission this blog writer spent 60 min in evaluating pt cc: epigastric pain moving upwards, sob, body locking up/leg locking up ---> falling hpi this is a 38 yr old wf with hx of binge drink for the past three years presented after two days after her binge drinking. pt says she has very bad anxiety which leads her to drink three years ago. she was celebrating to have a new roommate three days ago ---> had vodka (3/4 of q ) 05/19 and 6 ipa beers ( 12 oz with higher etoh concentration). she came in today because she has epigastric pain radiating to the whole chest dull achy 8-04/04 sob last the whole day. thought she would get better but she did not. nothing makes the pain better or worse. she started to be feel her body got lockup espically her legs and has kept falling ---> came in for help sig etoh dep hx ---> self treating with etoh for her anxiety no etoh related withdraw sz or pancreatitis never had inpt or outpt detox but has been f/u with [facility] lost her f/u recently pt was found to be very tachycardic and htn with initial sbp 190s and s tach at rate of 130s ---> this vital was after total 3 mg of ativan she has hx of htn but did not take her meds phx htn severe anxiety with symptoms of body lockdown not sure she sees a psy dr but has been using etoh for self treatment insominia hx of etoh binge drinking for the past three years ---> would consume 0.75 quart of vodka 3-4 times per week pshx s/p b/l wrist fx while playing softballs s/p r ankle fx while playing softballs s/p nasal fx repair twice at least while playing softballs social hx no cig etoh as above no ivda works in [employer] fhx mom at age 62 due to cad father at age 32 due to colon cancer Family History: Findings - as above Social History: Findings - as above Past Medical History: Findings - as above Review of Systems - Measurements Intake and Output: Intake and Output Last 24 Hours 05/19/18 05/20/18 05/21/1818 06:59 06:59 06:59 06:59 Intake Total 1999 Balance 1999 Weight 175 lb Intake: IV Fluids 1999 - Review of Systems General Comments: pertinent as per hpi Objective Active Medications: Amlodipine Besylate (Norvasc Tab*) 10 mg PO DAILY [facility] Ergocalciferol (Drisdol Cap*) 50,000 unit PO Q7D [facility] Folic Acid (Folvite Tab*) 1 mg PO DAILY [facility] Hydralazine HCl (Apresoline Iv*) 5 mg IV SLOW PU Q6H PRN PRN Reason: BLOOD PRESSURE Sodium Chloride (Ns 0.9% 1000 Ml*) 1,000 mls @ 125 mls/hr IV PER RATE [facility] Stop: 05/22/18 06:59 Lorazepam (Ativan Tab(*)) 1 mg .SEE ORDER .PER [facility] PROTOCOL BUTCH; Protocol Lorazepam (Ativan Inj*) 1 mg IV PUSH Q2H PRN PRN Reason: AGITATION Losartan Potassium (Cozaar Tab*) 100 mg PO DAILY [facility] Magnesium Oxide (Magox 400 Tab*) 400 mg PO BID [facility] Metoprolol Succinate (Toprol Xl Tab*) 25 mg PO DAILY [facility] Multivitamins/Minerals (Theragran/Minerals Tab*) 1 tab PO DAILY [facility] Potassium Chloride (Klor Con Er Tab*) 20 meq PO DAILY [facility] Thiamine HCl (Vitamin B-1 Tab*) 100 mg PO DAILY [facility] Thiamine HCl (Vitamin B-1 Tab*) 100 mg PO DAILY [facility] Vital Signs - 8 hr 05/21/18 05/21/18 05/21/18 18:26 19:17 19:18 Temperature 98.4 F Pulse Rate 128 130 143 Respiratory 18 17 15 Rate Blood Pressure 150/100 153/131 (mmHg) O2 Sat by Pulse 100 100 100 Oximetry 05/21/18 05/21/18 05/21/18 19:48 20:00 20:14 Temperature Pulse Rate 127 128 Respiratory 24 13 16 Rate Blood Pressure 149/105 (mmHg) O2 Sat by Pulse 100 100 Oximetry 05/21/18 05/21/18 05/21/18 20:18 20:48 21:00 Temperature Pulse Rate 126 136 129 Respiratory 18 20 23 Rate Blood Pressure 162/126 186/120 (mmHg) O2 Sat by Pulse 99 99 97 Oximetry 05/21/18 05/21/18 05/21/18 21:18 21:40 21:41 Temperature Pulse Rate 127 Respiratory 21 15 15 Rate Blood Pressure 172/115 (mmHg) O2 Sat by Pulse 97 Oximetry 05/21/18 05/21/18 05/21/18 21:48 22:23 22:48 Temperature Pulse Rate 131 134 117 Respiratory 21 20 19 Rate Blood Pressure 182/109 158/101 162/107 (mmHg) O2 Sat by Pulse 96 97 96 Oximetry 05/21/18 05/21/18 05/21/18 23:00 23:18 23:29 Temperature Pulse Rate 119 134 125 Respiratory 19 17 14 Rate Blood Pressure 142/122 159/106 (mmHg) O2 Sat by Pulse 95 98 97 Oximetry 05/21/18 05/21/18 23:48 23:50 Temperature 98.1 F 98.3 F Pulse Rate 127 103 Respiratory 15 18 Rate Blood Pressure 152/106 149/93 (mmHg) O2 Sat by Pulse 96 94 Oximetry Oxygen Devices in Use Now: None Eyes: No Scleral Icterus, PERRLA Ears/Nose/Mouth/Throat: NL Teeth, Lips, Gums, Clear Oropharnyx, Mucous Membranes Moist Neck: NL Appearance and Movements; NL JVP, Trachea Midline, No Thyroid Enlargement, Masses Respiratory: Symmetrical Chest Expansion and Respiratory Effort, Clear to Auscultation Cardiovascular: NL Sounds; No Murmurs; No JVD, RRR, - - + chest tenderness upon pressure Abdominal: NL Sounds; No Tenderness; No Distention Extremities: No Edema, - - able to raise ue and le against gravity Skin: No Rash or Ulcers Neurological: Alert and Oriented x 3, NL Sensation, NL Muscle Strength and Tone - ekg sinus tach no acute st t change Result Diagrams: 05/21/18 19:41 05/21/18 19:41 Assess/Plan/Problems-Billing Assessment: this is a 38 yr old wf with hx of severe anxiety htn chronic etoh dep presented day two of no etoh ---> withdraw from etoh now with severe tachycradiac and hypertension - Patient Problems (1) Alcohol abuse Current Visit: No Status: Acute Code(s): F10.10 - ALCOHOL ABUSE, UNCOMPLICATED SNOMED Code(s): 42906580 Comment: - pt wants to be enroll for inpt detox will need to contact brandy edwards again ( was here back in feb 2018) (2) Alcohol withdrawal Current Visit: No Status: Acute Code(s): F10.239 - ALCOHOL DEPENDENCE WITH WITHDRAWAL, UNSPECIFIED SNOMED Code(s): 887579352 Comment: [facility] protocol thiamine mvi folic acid (3) Anxiety Current Visit: Yes Status: Acute Code(s): F41.9 - ANXIETY DISORDER, UNSPECIFIED SNOMED Code(s): 17182272 (4) Family history of colon cancer in father Current Visit: No Status: Acute Code(s): Z80.0 - FAMILY HISTORY OF MALIGNANT NEOPLASM OF DIGESTIVE ORGANS SNOMED Code(s): 846538759 Comment: Pt needing outpatient colonoscopy given hx of paternal colon cancer age 33. (5) Hypertensive urgency Current Visit: Yes Status: Acute Code(s): I16.0 - HYPERTENSIVE URGENCY SNOMED Code(s): 065774559 Comment: lopressor iv given along with hydralazine iv resume home meds tele monitering (6) Anxiety Current Visit: No Status: Acute Code(s): F41.9 - ANXIETY DISORDER, UNSPECIFIED SNOMED Code(s): 96261621 Comment: not on any antipsy meds at all had qtc prolongation prior ---> will need psy eval if available will be getting ativan as per [facility] protocol for her etoh withdraw symptoms (7) Thrombocytasthenia Current Visit: Yes Status: Acute Code(s): D69.1 - QUALITATIVE PLATELET DEFECTS SNOMED Code(s): 50090167 Comment: her thrombocytopenia is etoh related h/h stable moniter trend (8) Leukocytosis Current Visit: Yes Status: Acute Code(s): D72.829 - ELEVATED WHITE BLOOD CELL COUNT, UNSPECIFIED SNOMED Code(s): 429563419 Comment: no fever ck ua (9) DVT prophylaxis Current Visit: Yes Status: Acute Code(s): STX2872 - SNOMED Code(s): 818451934 Comment: scd instead of lovenox due to thrombocytopenia
[2018-05-22] MEDS ORDERED: Enoxaparin(*) 40 MG/0.4 ML SYR SUBCUT SCH (04:00)
[2018-05-22 05:55] LABS: ABS Basophils 0 10^3/ul (0-0.2); ABS Eosinophils 0.1 10^3/ul (0-0.6); ABS Monocytes 0.4 10^3/ul (0-0.8); ABS Neutrophils 3.7 10^3/ul (1.5-7.7); ABS Nucleated RBC 0 10^3/ul; EGFR Non-African American 121.8 (>60); Eosinophil % 1.1 % (0-6); Hematocrit 30 % (35-47); Hemoglobin 10.4 g/dl (12.0-16.0); Lymphocyte % 18.6 % (25-47); Mean Corpuscular HGB Conc 35 g/dl (31-36); Mean Corpuscular Hemoglobin 32 pg (27-31); Mean Corpuscular Volume 93 fL (80-97); Mean Platelet Volume 8.7 um3 (7.4-10.4); Nucleated Red Blood Cells % 0.1; Platelet Count 71 10^3/ul (150-450); Red Blood Count 3.27 10^6/ul (4.00-5.40); Red Cell Distribution Width 14 % (10.5-15); White Blood Count 5.2 10^3/ul (3.5-10.8)
--- NOTE | 2018-05-22 07:14 | RAD ---
INDICATION: Shortness of breath and chest pain. COMPARISON: Comparison is made to prior study from March 01, 2018. TECHNIQUE: Dual-energy PA and lateral views of the chest were obtained. FINDINGS: The heart is within normal limits in size. Mediastinal and hilar contours appear within normal limits. The lungs are clear. No pleural effusion is present. IMPRESSION: NO EVIDENCE FOR ACTIVE CARDIOPULMONARY DISEASE. R0
[2018-05-22] MEDS: Magnesium Oxide TAB* 400 MG PO SCH (08:23)
[2018-05-22] MEDS: Losartan TAB* 25 MG PO SCH (08:23)
[2018-05-22] MEDS: Metoprolol Succinate XL TAB* 25 MG PO SCH (08:23)
[2018-05-22] MEDS: Thiamine TAB* 100 MG TAB PO SCH (08:23)
[2018-05-22] MEDS: amLODIPine TAB* 5 MG PO SCH (08:24)
[2018-05-22] MEDS: Folic Acid TAB* 1 MG PO SCH (08:25)
[2018-05-22] MEDS: Multivitamins/Minerals TAB PO SCH (08:25)
[2018-05-22] MEDS: Potassium Chlor TAB* 20 MEQ TAB.ER PO SCH (08:26)
[2018-05-22] MEDS ORDERED: Metoprolol Tartrate IV* 1 MG/ML 5 ML VIAL IV PRN (08:56)
[2018-05-22] MEDS ORDERED: Thiamine TAB* 100 MG TAB PO SCH ×2 (09:00)
[2018-05-22 09:04] LABS: Urine Appearance Turbid; Urine Blood 3+ (Negative); Urine Color Yellow; Urine Ketones Trace (Negative); Urine Protein Negative (Negative); Urine Red Blood Cell 1+(3-5/hpf) (Absent); Urine Specific Gravity 1.015 (1.010-1.030); Urine Urobilinogen Negative (Negative); Urine White Blood Cell 3+(>20/hpf) (Absent)
[2018-05-22] MEDS: LORazepam TAB(*) 1 MG SCH ×4 (10:33→18:13)
[2018-05-22] MEDS: cefTRIAXone(*) 1 GM in NS 0.9% 50 ML* 50 ML IVPB SCH (11:10)
--- NOTE | 2018-05-22 16:41 | PN ---
Subjective Date of Service: 05/22/18 Interval History: Pt seen and examined. Meds and labs reviewed. Pt reported to be having visual hallucinations, sinus tachycardia on telemetry, and harder to redirect at the end of the day consistent with ETOH WD, although O/N was not scoring on WAM. CC: As above ROS: Denied MONTEZ/dizziness, F/C, N/V, CP, SOB, increased cough, sputum production , abd pain, diarrhea, constipation, dysuria, myalgias, arthralgias, throat pain , and new skin lesions. The rest of the 14 point ROS are unremarkable. PHYSICAL EXAM: GEN APPEARANCE: Awake, not in acute distress HEENT: NC/AT, PERRLA, moist oral mucosa, (-) throat erythema NECK: Soft, supple, (-) cervical LAD, (-)JVD HEART: S1S2 WNL, RRR, No MRG CHEST: CTA, BL, GAE, No W/R/R ABD: Soft, ND/NT, NABS 4x Q EXT: No C/C/E SKIN: Warm to touch PSYCH: No active psychosis, hallucinations, depression, SI/HI Family History: Findings - as above Social History: Findings - as above Past Medical History: Findings - as above Objective Active Medications: Amlodipine Besylate (Norvasc Tab*) 10 mg PO DAILY [facility] Last Admin: 05/22/18 08:24 Dose: 10 mg Ergocalciferol (Drisdol Cap*) 50,000 unit PO Q7D [facility] Folic Acid (Folvite Tab*) 1 mg PO DAILY [facility] Last Admin: 05/22/18 08:25 Dose: 1 mg Hydralazine HCl (Apresoline Iv*) 5 mg IV SLOW PU Q6H PRN PRN Reason: BLOOD PRESSURE Ceftriaxone Sodium 1 gm/ (Sodium Chloride) 50 mls @ 200 mls/hr IVPB Q24H [facility] Last Admin: 05/22/18 11:10 Dose: 200 mls/hr Lorazepam (Ativan Inj*) 1 mg IV PUSH Q2H PRN PRN Reason: AGITATION Last Admin: 05/22/18 14:43 Dose: 1 mg Lorazepam (Ativan Tab(*)) 0 mg .SEE ORDER .PER [facility] PROTOCOL BUTCH; Protocol Last Admin: 05/22/18 16:12 Dose: 4 mg Losartan Potassium (Cozaar Tab*) 100 mg PO DAILY [facility] Last Admin: 05/22/18 08:23 Dose: 100 mg Magnesium Oxide (Magox 400 Tab*) 400 mg PO BID [facility] Last Admin: 05/22/18 08:23 Dose: 400 mg Metoprolol Succinate (Toprol Xl Tab*) 25 mg PO DAILY [facility] Last Admin: 05/22/18 08:23 Dose: 25 mg Multivitamins/Minerals (Theragran/Minerals Tab*) 1 tab PO DAILY [facility] Last Admin: 05/22/18 08:25 Dose: 1 tab Potassium Chloride (Klor Con Er Tab*) 20 meq PO DAILY [facility] Last Admin: 05/22/18 08:26 Dose: 20 meq Thiamine HCl (Vitamin B-1 Tab*) 100 mg PO DAILY [facility] Last Admin: 05/22/18 08:23 Dose: 100 mg Vital Signs - 8 hr 05/22/18 05/22/18 05/22/18 10:12 10:33 11:43 Temperature 98.4 F 98.9 F Pulse Rate 131 115 Respiratory 16 18 16 Rate Blood Pressure 150/94 127/81 (mmHg) O2 Sat by Pulse 97 100 Oximetry 05/22/18 05/22/18 05/22/18 13:55 14:42 14:43 Temperature 98.5 F Pulse Rate 116 Respiratory 16 16 16 Rate Blood Pressure 126/84 (mmHg) O2 Sat by Pulse 99 Oximetry 05/22/18 05/22/18 05/22/18 15:55 16:00 16:12 Temperature 98.1 F Pulse Rate 133 Respiratory 18 20 20 Rate Blood Pressure 127/89 (mmHg) O2 Sat by Pulse 100 Oximetry 05/22/18 16:15 Temperature Pulse Rate Respiratory 20 Rate Blood Pressure (mmHg) O2 Sat by Pulse Oximetry Oxygen Devices in Use Now: None Result Diagrams: 05/22/18 05:05 05/22/18 05:05 Assess/Plan/Problems-Billing Assessment: this is a 38 yr old wf with hx of severe anxiety htn chronic etoh dep presented day two of no etoh ---> withdraw from etoh now with severe tachycradiac and hypertension - Patient Problems (1) Alcohol withdrawal Current Visit: No Status: Acute Code(s): F10.239 - ALCOHOL DEPENDENCE WITH WITHDRAWAL, UNSPECIFIED SNOMED Code(s): 131377792 Comment: #ETOH abuse and withdrawal: -Continue WAM protocol -Advised life-style modifications -Continue Thiamine (2) UTI (urinary tract infection) Current Visit: Yes Status: Acute Comment: -Will place on Rocephin day#3 -Will await results of culture (3) Thrombocytopenia Current Visit: Yes Status: Acute Code(s): D69.6 - THROMBOCYTOPENIA, UNSPECIFIED SNOMED Code(s): 183061884 Comment: -Possibly due to acute ETOH toxicity vs. early cirrhosis not yet seen on imaging since GB U/S only shows alcoholic fatty liver disease -May need Fibrosure test as outpt to further characterize if platelets do not rebound with abstinence (4) Anxiety Current Visit: Yes Status: Acute Code(s): F41.9 - ANXIETY DISORDER, UNSPECIFIED SNOMED Code(s): 56799127 Comment: -Continue Metoprolol and WAM protocol -Baseline anxiety being exacerbated by withdrawal (5) DVT prophylaxis Current Visit: Yes Status: Acute Code(s): JTC7642 - SNOMED Code(s): 473380999 Comment: -Continue SCD -Will continue to hold pharamacologic prophylaxis given slight drop in PC Status and Disposition: -As above
[2018-05-22] MEDS ORDERED: LORazepam INJ* 2 MG/ML 1 ML VIAL IV PUSH ONE ×2 (16:44→17:47)
[2018-05-22] MEDS: LORazepam INJ* 2 MG/ML 1 ML VIAL IV PUSH STA ×2 (16:44→20:06)
[2018-05-22] MEDS ORDERED: Thiamine IV* 100 MG/ML 2 ML VIAL IM ONE (18:49)
[2018-05-22] MEDS ORDERED: Acetaminophen TAB* 325 MG PO PRN (18:49)
[2018-05-22] MEDS ORDERED: LORazepam INJ* 2 MG/ML 1 ML VIAL IV PUSH SCH (19:00)
[2018-05-22] MEDS: Dexmedetomidine* 400 MCG in NS 0.9% 100 ML* 96 ML IVPB SCH (20:04)
[2018-05-22] MEDS: LORazepam INJ* 2 MG/ML 1 ML VIAL IV PUSH SCH (21:43)
[2018-05-23] MEDS: Magnesium Oxide TAB* 400 MG PO SCH ×3 (00:22→20:15)
[2018-05-23] MEDS: LORazepam INJ* 2 MG/ML 1 ML VIAL IV PUSH SCH ×4 (00:22→22:15)
[2018-05-23 05:39] LABS: Hematocrit 33 % (35-47); Hemoglobin 10.9 g/dl (12.0-16.0); Mean Corpuscular HGB Conc 33 g/dl (31-36); Mean Corpuscular Hemoglobin 32 pg (27-31); Mean Corpuscular Volume 95 fL (80-97); Mean Platelet Volume 8.7 um3 (7.4-10.4); Platelet Count 58 10^3/ul (150-450); Red Blood Count 3.44 10^6/ul (4.00-5.40); Red Cell Distribution Width 14 % (10.5-15)
[2018-05-23 05:54] LABS: EGFR Non-African American 169.8 (>60)
[2018-05-23] MEDS: Dexmedetomidine* 400 MCG in NS 0.9% 100 ML* 96 ML IVPB SCH ×2 (06:02→20:05)
[2018-05-23] MEDS ORDERED: Thiamine TAB* 100 MG TAB PO SCH (09:00)
[2018-05-23] MEDS ORDERED: Multivitamins/Minerals TAB PO SCH (09:00)
[2018-05-23] MEDS ORDERED: Enoxaparin(*) 40 MG/0.4 ML SYR SUBCUT SCH ×2 (09:00→09:01)
[2018-05-23] MEDS ORDERED: Folic Acid TAB* 1 MG PO SCH (09:00)
[2018-05-23] MEDS ORDERED: Magnesium Sulfate IV* 3 GM in NS 0.9% 100 ML* 100 ML IVPB ONE (09:02)
[2018-05-23] MEDS ORDERED: Potassium Chlor TAB* 20 MEQ TAB.ER PO STA (09:02)
[2018-05-23] MEDS ORDERED: Potassium Chlor TAB* 20 MEQ TAB.ER PO ONE (09:02)
[2018-05-23] MEDS: Multivitamins/Minerals TAB PO SCH (09:40)
[2018-05-23] MEDS: Metoprolol Succinate XL TAB* 25 MG PO SCH (09:40)
[2018-05-23] MEDS: Folic Acid TAB* 1 MG PO SCH (09:40)
[2018-05-23] MEDS: Thiamine TAB* 100 MG TAB PO SCH (09:40)
[2018-05-23] MEDS: cefTRIAXone(*) 1 GM in NS 0.9% 50 ML* 50 ML IVPB SCH (09:59)
[2018-05-23] MEDS: amLODIPine TAB* 5 MG PO SCH (14:46)
[2018-05-23] MEDS: Losartan TAB* 25 MG PO SCH (14:47)
--- NOTE | 2018-05-23 18:01 | PN ---
Subjective Date of Service: 05/23/18 Interval History: Pt seen and examined. Meds and labs reviewed. Pt transferred to ICU last night given severe ETOH WD and placed of Precedex gtt CC: N/A ROS: Denied MONTEZ/dizziness, F/C, N/V, CP, SOB, increased cough, sputum production , abd pain, diarrhea, constipation, dysuria, myalgias, arthralgias, throat pain , and new skin lesions. The rest of the 14 point ROS are unremarkable. PHYSICAL EXAM: GEN APPEARANCE: Awake, not in acute distress, slightly confused, oriented x3 HEENT: NC/AT, PERRLA, moist oral mucosa, (-) throat erythema NECK: Soft, supple, (-) cervical LAD, (-)JVD HEART: S1S2 WNL, RRR, No MRG CHEST: CTA, BL, GAE, No W/R/R ABD: Soft, ND/NT, NABS 4x Q EXT: No C/C/E SKIN: Warm to touch PSYCH: No active psychosis, hallucinations, depression, SI/HI Family History: Findings - as above Social History: Findings - as above Past Medical History: Findings - as above Objective Active Medications: Amlodipine Besylate (Norvasc Tab*) 10 mg PO DAILY [facility] Last Admin: 05/23/18 14:46 Dose: Not Given Enoxaparin Sodium (Lovenox(*)) 30 mg SUBCUT Q24HR [facility] Ergocalciferol (Drisdol Cap*) 50,000 unit PO Q7D [facility] Folic Acid (Folvite Tab*) 1 mg PO DAILY [facility] Last Admin: 05/23/18 09:40 Dose: 1 mg Hydralazine HCl (Apresoline Iv*) 5 mg IV SLOW PU Q6H PRN PRN Reason: BLOOD PRESSURE Ceftriaxone Sodium 1 gm/ (Sodium Chloride) 50 mls @ 200 mls/hr IVPB Q24H [facility] Last Admin: 05/23/18 09:59 Dose: 200 mls/hr Dexmedetomidine HCl 400 mcg/ (Sodium Chloride) 100 mls @ 3.98 mls/hr IVPB Q24H [facility]; Protocol Last Admin: 05/23/18 06:02 Dose: 8.6 mls/hr Lorazepam (Ativan Inj*) 0 mg IV PUSH .PER [facility] PROTOCOL [facility]; Protocol Last Admin: 05/23/18 00:22 Dose: 2 mg Losartan Potassium (Cozaar Tab*) 100 mg PO DAILY [facility] Last Admin: 05/23/18 14:47 Dose: Not Given Magnesium Oxide (Magox 400 Tab*) 400 mg PO BID [facility] Last Admin: 05/23/18 09:40 Dose: 400 mg Metoprolol Succinate (Toprol Xl Tab*) 25 mg PO DAILY [facility] Last Admin: 05/23/18 09:40 Dose: 25 mg Multivitamins/Minerals (Theragran/Minerals Tab*) 1 tab PO DAILY [facility] Last Admin: 05/23/18 09:40 Dose: 1 tab Thiamine HCl (Vitamin B-1 Tab*) 100 mg PO DAILY [facility] Last Admin: 05/23/18 09:40 Dose: 100 mg Vital Signs - 8 hr 05/23/18 05/23/18 05/23/18 10:01 11:00 11:01 Temperature Pulse Rate 87 81 80 Respiratory 17 20 19 Rate Blood Pressure 115/82 106/77 (mmHg) O2 Sat by Pulse 100 98 98 Oximetry 05/23/18 05/23/18 05/23/18 11:57 12:00 12:01 Temperature 97.4 F Pulse Rate 75 73 Respiratory 16 18 18 Rate Blood Pressure 89/73 (mmHg) O2 Sat by Pulse 96 97 Oximetry 05/23/18 05/23/18 05/23/18 13:00 13:29 14:00 Temperature Pulse Rate 81 79 90 Respiratory 14 17 19 Rate Blood Pressure 87/65 108/81 103/78 (mmHg) O2 Sat by Pulse 98 100 100 Oximetry 05/23/18 05/23/18 05/23/18 14:01 15:00 15:01 Temperature Pulse Rate 87 88 89 Respiratory 19 6 6 Rate Blood Pressure 122/85 (mmHg) O2 Sat by Pulse 100 100 100 Oximetry 05/23/18 05/23/18 05/23/18 16:00 17:00 17:01 Temperature 98.3 F Pulse Rate 106 95 95 Respiratory 22 22 24 Rate Blood Pressure 124/94 (mmHg) O2 Sat by Pulse 91 100 99 Oximetry Oxygen Devices in Use Now: None Result Diagrams: 05/23/18 05:22 05/23/18 05:22 Microbiology and Other Data: Microbiology 05/22/18 08:35 Urine Culture - Preliminary Urine Escherichia Coli 05/23/18 06:04 Nasal Screen MRSA (PCR) - Final Nasal Mrsa Not Detected Assess/Plan/Problems-Billing Assessment: this is a 38 yr old wf with hx of severe anxiety htn chronic etoh dep presented day two of no etoh ---> withdraw from etoh now with severe tachycradiac and hypertension - Patient Problems (1) Alcohol withdrawal Current Visit: No Status: Acute Code(s): F10.239 - ALCOHOL DEPENDENCE WITH WITHDRAWAL, UNSPECIFIED SNOMED Code(s): 705040029 Comment: #ETOH abuse and withdrawal: -Continue WAM protocol -Continue Precedex gtt -Advised life-style modifications -Continue Thiamine (2) UTI (urinary tract infection) Current Visit: Yes Status: Acute Comment: -Will place on Rocephin day#2/3 -Will await results of culture (3) Thrombocytopenia Current Visit: Yes Status: Acute Code(s): D69.6 - THROMBOCYTOPENIA, UNSPECIFIED SNOMED Code(s): 479887740 Comment: -Possibly due to acute ETOH toxicity vs. early cirrhosis not yet seen on imaging since GB U/S only shows alcoholic fatty liver disease -May need Fibrosure test as outpt to further characterize if platelets do not rebound with abstinence (4) Anxiety Current Visit: Yes Status: Acute Code(s): F41.9 - ANXIETY DISORDER, UNSPECIFIED SNOMED Code(s): 96722900 Comment: -Continue Metoprolol and WAM protocol -Baseline anxiety being exacerbated by withdrawal (5) DVT prophylaxis Current Visit: Yes Status: Acute Code(s): QIR7334 - SNOMED Code(s): 405931761 Comment: -Continue SCD -Will continue to hold pharamacologic prophylaxis given slight drop in PC Status and Disposition: -As above
[2018-05-24] MEDS: LORazepam INJ* 2 MG/ML 1 ML VIAL IV PUSH SCH ×3 (00:21→04:44)
[2018-05-24] MEDS: Dexmedetomidine* 400 MCG in NS 0.9% 100 ML* 96 ML IVPB SCH ×2 (05:36→20:00)
[2018-05-24 05:59] LABS: ABS Basophils 0 10^3/ul (0-0.2); ABS Eosinophils 0.2 10^3/ul (0-0.6); ABS Monocytes 0.3 10^3/ul (0-0.8); ABS Neutrophils 3.2 10^3/ul (1.5-7.7); ABS Nucleated RBC 0 10^3/ul; Eosinophil % 3.6 % (0-6); Hematocrit 33 % (35-47); Hemoglobin 11.1 g/dl (12.0-16.0); Lymphocyte % 21.8 % (25-47); Mean Corpuscular HGB Conc 34 g/dl (31-36); Mean Corpuscular Hemoglobin 32 pg (27-31); Mean Corpuscular Volume 93 fL (80-97); Mean Platelet Volume 8.9 um3 (7.4-10.4); Nucleated Red Blood Cells % 0.1; Platelet Count 61 10^3/ul (150-450); Red Cell Distribution Width 14 % (10.5-15); White Blood Count 4.7 10^3/ul (3.5-10.8)
[2018-05-24 06:04] LABS: INR 0.84 (0.77-1.02)
[2018-05-24 06:15] LABS: EGFR Non-African American 138.8 (>60)
[2018-05-24] MEDS ORDERED: Enoxaparin(*) 30 MG/0.3 ML SYR SUBCUT SCH (09:00)
--- NOTE | 2018-05-24 09:10 | PN ---
Subjective Date of Service: 05/24/18 Interval History: Pt sleeping soundly awaking to verbal and gentle physically stimuli easily - she is alert and oriented to date and year but did not remember she was in the hospital stating "Im admitted again?!" becoming distressed. She states the last date she remembers was the which was her Birthday. She denies MONTEZ, tremors, nausea, abdominal pain. No SOB/CP. Family History: Findings - as above Social History: Findings - as above Past Medical History: Findings - as above Objective Active Medications: Amlodipine Besylate (Norvasc Tab*) 10 mg PO DAILY [facility] Last Admin: 05/23/18 14:46 Dose: Not Given Ergocalciferol (Drisdol Cap*) 50,000 unit PO Q7D [facility] Folic Acid (Folvite Tab*) 1 mg PO DAILY [facility] Last Admin: 05/23/18 09:40 Dose: 1 mg Hydralazine HCl (Apresoline Iv*) 5 mg IV SLOW PU Q6H PRN PRN Reason: BLOOD PRESSURE Ceftriaxone Sodium 1 gm/ (Sodium Chloride) 50 mls @ 200 mls/hr IVPB Q24H [facility] Last Admin: 05/23/18 09:59 Dose: 200 mls/hr Dexmedetomidine HCl 400 mcg/ (Sodium Chloride) 100 mls @ 3.98 mls/hr IVPB Q24H [facility]; Protocol Last Admin: 05/24/18 05:36 Dose: 10.8 mls/hr Lorazepam (Ativan Inj*) [address] .[address] [facility] PROTOCOL [facility]; Protocol Last Admin: 05/24/18 04:44 Dose: 6 mg Losartan Potassium (Cozaar Tab*) 100 mg PO DAILY [facility] Last Admin: 05/23/18 14:47 Dose: Not Given Magnesium Oxide (Magox 400 Tab*) 400 mg PO BID [facility] Last Admin: 05/23/18 20:15 Dose: 400 mg Metoprolol Succinate (Toprol Xl Tab*) 25 mg PO DAILY [facility] Last Admin: 05/23/18 09:40 Dose: 25 mg Multivitamins/Minerals (Theragran/Minerals Tab*) 1 tab PO DAILY [facility] Last Admin: 05/23/18 09:40 Dose: 1 tab Thiamine HCl (Vitamin B-1 Tab*) 100 mg PO DAILY [facility] Last Admin: 05/23/18 09:40 Dose: 100 mg Vital Signs - 8 hr 05/24/18 05/24/18 05/24/18 01:58 02:00 02:01 Temperature Pulse Rate 99 100 Respiratory 27 27 30 Rate Blood Pressure 123/91 (mmHg) O2 Sat by Pulse 95 95 Oximetry 05/24/18 05/24/18 05/24/18 02:06 03:00 03:04 Temperature Pulse Rate 95 Respiratory 20 23 10 Rate Blood Pressure (mmHg) O2 Sat by Pulse 96 Oximetry 05/24/18 05/24/18 05/24/18 04:00 04:01 04:44 Temperature 97.9 F Pulse Rate 96 87 Respiratory 20 21 23 Rate Blood Pressure 125/97 (mmHg) O2 Sat by Pulse 98 98 Oximetry 05/24/18 05/24/18 05/24/18 05:00 05:01 05:55 Temperature Pulse Rate 78 75 Respiratory 21 19 15 Rate Blood Pressure 120/92 (mmHg) O2 Sat by Pulse 96 98 Oximetry 05/24/18 05/24/18 05/24/18 05:58 06:00 06:01 Temperature Pulse Rate 78 75 76 Respiratory 6 15 19 Rate Blood Pressure 124/94 120/94 (mmHg) O2 Sat by Pulse 97 98 97 Oximetry Oxygen Devices in Use Now: None Appearance: A+O to self and date - easily reoriented. Eyes: No Scleral Icterus, PERRLA Ears/Nose/Mouth/Throat: NL Teeth, Lips, Gums, Mucous Membranes Moist Neck: NL Appearance and Movements; NL JVP Respiratory: Symmetrical Chest Expansion and Respiratory Effort, Clear to Auscultation Cardiovascular: NL Sounds; No Murmurs; No JVD, RRR, No Edema Abdominal: NL Sounds; No Tenderness; No Distention, - - obese Extremities: No Edema, No Clubbing, Cyanosis Skin: No Rash or Ulcers, No Nodules or Sclerosis Neurological: Alert and Oriented x 3, NL Sensation, NL Muscle Strength and Tone Lines/Tubes/Other Access: Clean, Dry and Intact Peripheral IV Nutrition: Taking PO's Result Diagrams: 05/24/18 05:45 05/24/18 05:45 Microbiology and Other Data: Microbiology 05/22/18 08:35 Urine Culture - Preliminary Urine Escherichia Coli 05/23/18 06:04 Nasal Screen MRSA (PCR) - Final Nasal Mrsa Not Detected Assess/Plan/Problems-Billing Assessment: this is a 38 yr old wf with hx of severe anxiety htn chronic etoh dep presented day two of no etoh ---> withdraw from etoh - Patient Problems (1) Alcohol withdrawal SNOMED Code(s): 723562361 Comment: #ETOH abuse and withdrawal: -Continue WAM protocol -Continue Precedex gtt - on 0.5 mcg/kg/hr - cut in half and continue to monitor - WAM -protocol - continues to score 8 - ativan prn -Continue Thiamine (2) UTI (urinary tract infection) Comment: - Ecoli low colony count - sensitive to rocephin - Total of 3 doses of Rocephin - plan to DC (3) HTN (hypertension) Comment: Continue home meds metoprolol succinate 25mg amlodipine 10mg losartan 100 mg (4) Thrombocytopenia Comment: in setting of EtOH abuse. monitor CBC daily. (5) DVT prophylaxis Comment: -Continue SCD -hold pharamacologic prophylaxis given thrombocytopenia (6) Full code status Status and Disposition: -inpatient. social work following.
[2018-05-24] MEDS: amLODIPine TAB* 5 MG PO SCH (10:50)
[2018-05-24] MEDS: Magnesium Oxide TAB* 400 MG PO SCH ×2 (10:50→21:04)
[2018-05-24] MEDS: Metoprolol Succinate XL TAB* 25 MG PO SCH (10:50)
[2018-05-24] MEDS: Folic Acid TAB* 1 MG PO SCH (10:50)
[2018-05-24] MEDS: Losartan TAB* 25 MG PO SCH (10:50)
[2018-05-24] MEDS: Multivitamins/Minerals TAB PO SCH (10:50)
[2018-05-24] MEDS: Thiamine TAB* 100 MG TAB PO SCH (10:51)
[2018-05-24] MEDS: cefTRIAXone(*) 1 GM in NS 0.9% 50 ML* 50 ML IVPB SCH (10:51)
[2018-05-24] MEDS: Potassium Chlor TAB* 20 MEQ TAB.ER PO SCH (19:57)
[2018-05-24] MEDS: Melatonin 3 MG TAB PO PRN (21:04)
[2018-05-25 05:04] LABS: ABS Basophils 0 10^3/ul (0-0.2); ABS Eosinophils 0.2 10^3/ul (0-0.6); ABS Lymphocytes 1.1 10^3/ul (1.0-4.8); ABS Monocytes 0.4 10^3/ul (0-0.8); ABS Neutrophils 3.1 10^3/ul (1.5-7.7); ABS Nucleated RBC 0 10^3/ul; Eosinophil % 4.1 % (0-6); Hematocrit 33 % (35-47); Hemoglobin 11.3 g/dl (12.0-16.0); Lymphocyte % 22.1 % (25-47); Mean Corpuscular HGB Conc 34 g/dl (31-36); Mean Corpuscular Hemoglobin 32 pg (27-31); Mean Corpuscular Volume 93 fL (80-97); Mean Platelet Volume 8.4 um3 (7.4-10.4); Nucleated Red Blood Cells % 0; Platelet Count 84 10^3/ul (150-450); Red Blood Count 3.54 10^6/ul (4.00-5.40); Red Cell Distribution Width 14 % (10.5-15); White Blood Count 4.8 10^3/ul (3.5-10.8)
[2018-05-25 05:15] LABS: EGFR Non-African American 112.5 (>60)
[2018-05-25] MEDS ORDERED: Magnesium Sulfate 1 GM IV* 1 GM/100 ML BAG IV ONE (08:32)
--- NOTE | 2018-05-25 08:34 | PN ---
Subjective Date of Service: 05/25/18 Interval History: Patient reports she "feels much better today" she is still confused around the events of what happened. She reports she doesn't drink everyday but did "go on a leal" and recognizes this is her problem. She is connected with the community and goes several times a week, as well as has a sponsor, and has weekly counseling with Ashley Dubose psychotherapist. She has not done inpatient alcohol rehab in the past - she is thinking about if that is what she wants or needs. She is interested in further services. She denies being suicidal or depressed. She states she has anxiety at her baseline but feels this has be more under control. She states she has the personality "go big or go home' and she doesnt "understand how people can only have 1 drink". She denies recreational drug use. Today she states her withdrawal symptoms are pretty much resolved but still feels "foggy in the head". Family History: Findings - as above Social History: Findings - as above Past Medical History: Findings - as above Objective Active Medications: Amlodipine Besylate (Norvasc Tab*) 10 mg PO DAILY [facility] Last Admin: 05/24/18 10:50 Dose: 10 mg Ergocalciferol (Drisdol Cap*) 50,000 unit PO Q7D [facility] Folic Acid (Folvite Tab*) 1 mg PO DAILY [facility] Last Admin: 05/24/18 10:50 Dose: 1 mg Hydralazine HCl (Apresoline Iv*) 5 mg IV SLOW PU Q6H PRN PRN Reason: BLOOD PRESSURE Magnesium Sulfate/Dextrose (Magnesium Sulfate 1 Gm Iv*) 1 gm in 100 mls @ 200 mls/hr IV ONCE ONE Stop: 05/25/18 09:01 Lorazepam (Ativan Inj*) 0 mg IV PUSH .PER [facility] PROTOCOL [facility]; Protocol Last Admin: 05/24/18 04:44 Dose: 6 mg Losartan Potassium (Cozaar Tab*) 100 mg PO DAILY [facility] Last Admin: 05/24/18 10:50 Dose: 100 mg Magnesium Oxide (Magox 400 Tab*) 400 mg PO BID [facility] Last Admin: 05/24/18 21:04 Dose: 400 mg Melatonin (Melatonin) 3 mg PO BEDTIME PRN; Protocol PRN Reason: SLEEP Last Admin: 10/30/18 21:04 Dose: 3 mg Metoprolol Succinate (Toprol Xl Tab*) 25 mg PO DAILY [facility] Last Admin: 05/24/18 10:50 Dose: 25 mg Multivitamins/Minerals (Theragran/Minerals Tab*) 1 tab PO DAILY [facility] Last Admin: 05/24/18 10:50 Dose: 1 tab Thiamine HCl (Vitamin B-1 Tab*) 100 mg PO DAILY [facility] Last Admin: 05/24/18 10:51 Dose: 100 mg Vital Signs - 8 hr 05/25/18 05/25/18 05/25/18 01:00 01:13 02:00 Temperature Respiratory 20 16 19 Rate Blood Pressure 125/97 103/78 (mmHg) 05/25/18 05/25/18 05/25/18 02:01 03:00 03:01 Temperature Respiratory 21 22 21 Rate Blood Pressure 134/88 (mmHg) 05/25/18 05/25/18 05/25/18 03:47 04:00 04:01 Temperature 98.0 F Respiratory 16 14 Rate Blood Pressure 122/88 (mmHg) 05/25/18 05/25/18 05/25/18 04:33 05:00 05:01 Temperature Respiratory 20 20 20 Rate Blood Pressure 122/92 (mmHg) 05/25/18 05/25/18 05/25/18 06:00 07:00 07:01 Temperature Respiratory 19 18 19 Rate Blood Pressure 136/88 126/97 (mmHg) Oxygen Devices in Use Now: None Appearance: 38 yo female A+O x3 in NAD - very pleasent, cooperative Eyes: No Scleral Icterus Ears/Nose/Mouth/Throat: NL Teeth, Lips, Gums, Mucous Membranes Moist Neck: NL Appearance and Movements; NL JVP Respiratory: Symmetrical Chest Expansion and Respiratory Effort, Clear to Auscultation Cardiovascular: NL Sounds; No Murmurs; No JVD, RRR, No Edema Abdominal: NL Sounds; No Tenderness; No Distention Skin: No Rash or Ulcers, No Nodules or Sclerosis Neurological: Alert and Oriented x 3, NL Sensation, NL Muscle Strength and Tone Lines/Tubes/Other Access: Clean, Dry and Intact Peripheral IV Nutrition: Taking PO's Result Diagrams: 05/25/18 04:50 05/25/18 04:50 Microbiology and Other Data: Microbiology 05/22/18 08:35 Urine Culture - Preliminary Urine Escherichia Coli 05/23/18 06:04 Nasal Screen MRSA (PCR) - Final Nasal Mrsa Not Detected Assess/Plan/Problems-Billing Assessment: this is a 38 yr old wf with hx of severe anxiety htn chronic etoh dep presented day two of no etoh ---> withdraw from etoh - Patient Problems (1) Alcohol withdrawal SNOMED Code(s): 475781632 Comment: - much improvement overnight #ETOH abuse and withdrawal: -[facility] protocol - withdrawal symptoms improving - only scoring a 1 overnight - no ativan required overnight. -Precedex gtt DC'd yesterday -Continue Thiamine, multi-vit, magnesium - social work following - pt considering inpatient rehab. Currently goes to , has a sponsor and see Ashley Dubose psychotherapist (I tried to call but [facility] was full). (2) UTI (urinary tract infection) Comment: - Ecoli low colony count - sensitive to rocephin - Total of 3 doses of Rocephin (3) HTN (hypertension) Comment: Continue home meds metoprolol succinate 25mg amlodipine 10mg losartan 100 mg (4) Thrombocytopenia Comment: in setting of EtOH abuse. monitor CBC daily. will need f/u as outpt (5) Transaminitis Comment: - appears chronically elevated since December - suspect a combination of ETOH abuse and fatty liver - GB U/S showing: Biliary sludge w/o findings of acute haley. Liver has noted diffuse echogenicity which may represent hepatic steatosis. - Pt advised to abtain from alcohol as well as lifestyle changes - such as diet & exercsie. - will need f/u as outpt (6) DVT prophylaxis Comment: -Continue SCD -hold pharamacologic prophylaxis given thrombocytopenia (7) Full code status Status and Disposition: -inpatient. social work following. Transfer to medical unit.
[2018-05-25] MEDS: amLODIPine TAB* 5 MG PO SCH (08:53)
[2018-05-25] MEDS: Folic Acid TAB* 1 MG PO SCH (08:55)
[2018-05-25] MEDS: Multivitamins/Minerals TAB PO SCH (08:55)
[2018-05-25] MEDS: Metoprolol Succinate XL TAB* 25 MG PO SCH (08:55)
[2018-05-25] MEDS: Magnesium Oxide TAB* 400 MG PO SCH ×2 (08:55→20:27)
[2018-05-25] MEDS: Losartan TAB* 25 MG PO SCH (08:56)
[2018-05-25] MEDS: Thiamine TAB* 100 MG TAB PO SCH (08:57)
[2018-05-25] MEDS ORDERED: Ergocalciferol CAP* 50000 UNIT PO SCH (09:00)
[2018-05-25] MEDS ORDERED: Ondansetron INJ* 2 MG/ML VIAL IV PRN (18:32)
[2018-05-25] MEDS ORDERED: Calcium Carbonate CHEW TAB* 500 MG (TUMS) PO PRN (18:33)
[2018-05-25] MEDS: Melatonin 3 MG TAB PO PRN (20:27)
[2018-05-25] MEDS ORDERED: LORazepam TAB(*) 1 MG PO ONE (20:54)
[2018-05-26 08:48] VITALS: BP 132/88
[2018-05-26] MEDS: Losartan TAB* 25 MG PO SCH (08:56)
[2018-05-26] MEDS: Thiamine TAB* 100 MG TAB PO SCH (08:57)
[2018-05-26] MEDS: Metoprolol Succinate XL TAB* 25 MG PO SCH (08:57)
[2018-05-26] MEDS: amLODIPine TAB* 5 MG PO SCH (08:57)
[2018-05-26] MEDS: Magnesium Oxide TAB* 400 MG PO SCH (08:58)
[2018-05-26] MEDS: Folic Acid TAB* 1 MG PO SCH (08:58)
[2018-05-26] MEDS: Multivitamins/Minerals TAB PO SCH (08:58)
--- NOTE | 2018-05-27 07:20 | DS ---
CC: [facility], Dr. Malagon.* DISCHARGE SUMMARY: DATE OF ADMISSION: 05/22/18 DATE OF DISCHARGE: 05/26/18 ATTENDING FOR THIS ADMISSION: Dr. Malagon. MY ATTENDING FOR TODAY: Dr. Malagon.* (DICTATED BY SUSHIL BECKETT NP) PRIMARY CARE PROVIDER: The patient's primary care provider currently is [facility], also Dr. Malagon. HOSPITAL COURSE: This is a 38-year-old female patient who has had multiple hospitalizations in the past for alcohol abuse and detoxification. She presented to the emergency department on the night of 05/22/18 after stating she had engaged in binge drinking. The patient has tried to detox in the past. She came in with complaints of abdominal pain and inability to eat. She was tremulous and tachycardic. The patient agreed to stay for detoxification. She was also in hypertensive urgency when she was admitted. Blood pressure at admission, she had some diastolic hypertension ranging in the 172/115 range. She was admitted and blood pressure was treated with IV hydralazine. She was also placed back on her regularly scheduled home medications and placed on WAM protocol. The patient progressed over the last couple of days. Today, her pain improved. She had imaging of the gallbladder as the patient endorses she was still having some ongoing abdominal pain. Ultrasound revealed biliary sludge without other findings suggestive of acute cholecystitis. The patient's diet was advanced. She was tolerating p.o. Her WAM scores have been 2 or less over the last 48 hours and the patient is feeling well enough to be discharged to home. Of significant note, the patient is still interested in an outpatient detoxification and support program for her alcohol abuse. She does have a sponsor who she is communicating with, who will be transporting the patient home and providing support in her endeavor to become sober. DISCHARGE DIAGNOSES: 1. Alcohol intoxification. 2. Hypertensive urgency. 3. Abdominal pain. 4. History of anxiety disorder. 5. Leukocytosis. 6. Thrombocytopenia in the setting of alcohol abuse. 7. Transaminitis. DISCHARGE MEDICATIONS: Include: 1. Vitamin D 50,000 units weekly. 2. Magnesium oxide tablet 400 mg 2 times a day. 3. Losartan 100 mg daily. 4. Amlodipine 10 mg daily. 5. Thiamine 100 mg daily. 6. K-Chlor 20 mEq daily. 7. Metoprolol succinate XL 25 mg daily. 8. Multivitamin 1 tablet daily. 9. Folic acid 1 mg daily. REVIEW OF SYSTEMS: The patient denies any fever, fatigue, or chills. No headache. No chest pain. No shortness of breath. No nausea. No vomiting. No current abdominal pain. No arthralgias or myalgias. No further constitutional complaints. PHYSICAL EXAMINATION: Today, blood pressure is 122/85, heart rate 88, respiratory rate 20, O2 saturation 100% on room air with a temperature of 98.3. HEENT: The patient is atraumatic, normocephalic. PERRLA with nonicteric sclerae. Neck is supple and nontender. No JVD noted. No carotid bruits auscultated. Cardiovascular: S1, S2 are present. No murmurs, gallops or rubs noted. Rate and rhythm are regular. Lungs: Clear bilaterally to auscultation with no wheezing, rhonchi or rales. Abdomen is soft, nontender, nondistended. Positive bowel sounds in all 4 quadrants. No organomegaly appreciated. is deferred. Musculoskeletal: There is no clubbing, no cyanosis, no edema. She has full range of motion. Distal pulses are intact. She is ambulatory. Neurologic: She is grossly intact with no focalities. Psychiatric: She is still somewhat anxious; however, she is appropriate. DIAGNOSTIC STUDIES AND LABORATORY DATA: WBC is 4.8, RBC is 3.54, hemoglobin 11.3, hematocrit 33, platelets ranging between 84 and 106. During this hospitalization, her sodium is 138, potassium 4.1, chloride 106, CO2 27. BUN 9 and creatinine 0.60, glucose 108, magnesium 1.9. Bilirubin 0.50. AST 104, ALT 87, alk phos 46, ammonia level 38, protein 6.3, albumin 3.5, globulin 2.8. Triglycerides 70, cholesterol 178, LDL 80, HDL 84.3. Lipase 23. TSH 2.56. Urinalysis showed trace ketones, 3+ blood, 3+ leukocyte esterase, 3+ urine wbc's , 1+ rbc's with some squamous epithelial cells present. Toxicology showed presumptive positive for opiates, serum alcohol level of less than 10. INR is 0.84. Hepatitis panel is nonreactive. Imaging: Ultrasound of the gallbladder as noted above. Chest x-ray dated 05/21 shows no evidence of active cardiopulmonary disease. DISPOSITION: The patient will be discharged to home in the care of her sponsor. The patient states her understanding of her discharge instructions and medications at the time of discharge. FOLLOWUP: The patient to see Dr. Malagon at the [facility]. She states she used to be a patient of Dr. Wolff; however, she is more comfortable coming to [facility]. We will set up a followup appointment for her. DIET: She should have a regular diet. The patient should abstain from alcohol completely. ACTIVITY: As tolerated. SUSHIL BECKETT, ASCENCION [id number]/CPS #: [id number] KRISTEN
== END 2018-05-26 12:25 | disposition home or self-care (01) | DRG 775 ==
LOC: ED 17:41 → MEDTELE 22:46 → ICU 05-22 19:10 → MED 05-25 16:19
PROVIDERS: ADMIT Internal Medicine; ATTEND Internal Medicine
DX: F10.239 Alcohol dependence with withdrawal, unspecified (principal); N39.0 Urinary tract infection, site not specified; F41.9 Anxiety disorder, unspecified; I10 Essential (primary) hypertension; J45.909 Unspecified asthma, uncomplicated; F32.9 Major depressive disorder, single episode, unspecified; Y90.9 Presence of alcohol in blood, level not specified; I16.0 Hypertensive urgency; D69.1 Qualitative platelet defects; D72.829 Elevated white blood cell count, unspecified; R74.0 Nonspecific elevation of levels of transaminase and lactic acid dehydrogenase [LDH]; F10.229 Alcohol dependence with intoxication, unspecified; B96.20 Unspecified Escherichia coli [E. coli] as the cause of diseases classified elsewhere; R00.0 Tachycardia, unspecified; K76.0 Fatty (change of) liver, not elsewhere classified; Z82.49 Family history of ischemic heart disease and other diseases of the circulatory system; Z80.0 Family history of malignant neoplasm of digestive organs; Z87.891 Personal history of nicotine dependence
CPT/HCPCS: 36415; 71046; 76705; 80053; 80061; 80074; 80307; 80320; 81003; 81015; 82140; 83690; 83735; 84100; 84443; 84484; 84702; 85025; 85027; 85379; 85610; 87077; 87086; 87186; 87641; 93005; 99283; A9270-GY; G0480; J0696; J1650; J2060; J2270; J2405; J3411; J3475; J3490

== ENCOUNTER 2019-02-12 15:46 | Inpatient (IN) | payer SELFPAY ==
[2019-02-12 16:10] LABS: Hematocrit 48 % (35-47); Hemoglobin 16.2 g/dL (12.0-16.0); Mean Corpuscular HGB Conc 34 g/dL (31-36); Mean Corpuscular Hemoglobin 32 pg (27-31); Mean Corpuscular Volume 95 fL (80-97); Mean Platelet Volume 7.2 fL (7.4-10.4); Platelet Count 235 10^3/uL (150-450); Red Cell Distribution Width 16 % (10-15); White Blood Count 22.5 10^3/uL (3.5-10.8)
[2019-02-12 16:12] LABS: ABS Lymphocytes 0.6 10^3/ul (1.0-4.8); ABS Monocytes 0.8 10^3/ul (0-0.8); ABS Neutrophils 21.1 10^3/ul (1.5-7.7); Eosinophil % 0.1 %; Lymphocyte % 2.7 %; Nucleated Red Blood Cells % 0.1
--- NOTE | 2019-02-12 16:13 | ED ---
HPI Chest Pain - HPI Summary HPI Summary: Pt is a 38 y/o F presenting to the ED with her friend Franci with a chief complaint of chest pain rated at 8/10 onset initially a couple of days ago. The pain begins at her xiphoid process and spreads mid-sternally to her sternal notch. She reports N/V, CP, decreased appetite, dehydration, palpitations, decreased sleep, fatigue, anxiety, dark urine, dizziness and mild hematemesis from frequent emesis. She denies dysuria, burning with urination, and diarrhea. She has hx of irregular and fast HR, as well as carpopedal spasms from an electrolyte imbalance. LNMP 1.5 wks ago. NKDA. She has no PCP. She also notes she would not like Kiera Gee to be notified whenever she visits the ED/UC. Home Medications Medication Instructions Recorded Confirmed Type Metoprolol Succinate XL TAB* 25 mg PO DAILY 09/10/17 05/21/18 History [Toprol XL TAB*] Losartan TAB* [Cozaar TAB*] 100 mg PO DAILY #30 tab 09/12/17 05/21/18 Rx amLODIPine TAB* [Norvasc 5 mg TAB*] 10 mg PO DAILY #60 tab 09/12/17 05/21/18 Rx Magnesium Oxide TAB* [MagOx 400 400 mg PO BID #60 tab 01/19/18 05/21/18 Rx TAB*] Potassium Chlor TAB* [Potassium 20 meq PO DAILY #30 tab.er 01/19/18 05/21/18 Rx Chlor TAB 20 MEQ*] Ergocalciferol CAP* [Drisdol CAP*] 50,000 unit PO Q7D 30 Days #4 cap 03/04/18 Rx Thiamine TAB* [Vitamin B-1 TAB 100 100 mg PO DAILY tab 03/04/18 05/21/18 Rx MG*] Folic Acid TAB* [Folvite TAB*] 1 mg PO DAILY tab 05/26/18 Rx Multivitamins/Minerals TAB* 1 tab PO DAILY tab 05/26/18 Rx [Theragran/minerals TAB*] Thiamine TAB* [Vitamin B-1 TAB 100 100 mg PO DAILY tab 05/26/18 Rx MG*] - History of Current Complaint Chief Complaint: EDDysrhythmPalp Hx Obtained From: Patient, Other: - friend Franci Alston Onset/Duration: Started Days Ago, Still Present Timing: Constant, Lasting Days Initial Severity: Moderate Current Severity: Severe Pain Intensity: 8 Pain Scale Used: 0-10 Numeric Chest Pain Location: Mid Sternal Chest Pain Radiates: No Aggravating Factor(s): Nothing Alleviating Factor(s): Nothing Associated Signs and Symptoms: Positive: Chest Pain, Anxiety, Dizziness, Nausea , Palpitations, Vomiting, Other: - dehydration, decreased sleep, fatigue, hematemesis, dark urine. Negative: Negative - dysuria, burning with urination, diarrhea - Additional Pertinent History Primary Care Physician: [id number] - Allergy/Home Medications Allergies/Adverse Reactions: Allergies Allergy/AdvReac Type Severity Reaction Status Date / Time No Known Allergies Allergy Verified 02/12/19 15:59 PMH/Surg Hx/FS Hx/Imm Hx Previously Healthy: Yes Endocrine/Hematology History: Denies: Hx Diabetes Cardiovascular History: Reports: Hx Hypertension Respiratory History: Reports: Hx Asthma Sensory History: Denies: Hx Contacts or Glasses, Hx Hearing Aid Opthamlomology History: Denies: Hx Contacts or Glasses Psychiatric History: Reports: Hx Anxiety, Hx Depression - Surgical History Surgery Procedure, Year, and Place: hernia repair at age 9 Infectious Disease History: No Infectious Disease History: Denies: Traveled Outside the [place] in Last 30 Days - Family History Known Family History: Positive: Cardiac Disease - MD - mother, Other - colon CA - father - Social History Alcohol Use: Pt admits to 2x a week usage currently Alcohol Amount: "quite a bit" Hx Substance Use: No Substance Use Type: Reports: None Substance Use Comment - Amount & Last Used: Per pt, 1.5 weeks prior to admission Hx Tobacco Use: Yes Smoking Status (MU): Former Smoker Review of Systems Positive: Fatigue, Other - dec. appetite, dec. sleep, dehydration Positive: Palpitations, Chest Pain Positive: Vomiting - w/ hematemesis, Nausea. Negative: Diarrhea Positive: other - urine is dark. Negative: burning, dysuria Neurological: Other - dizziness Positive: Anxious All Other Systems Reviewed And Are Negative: Yes Physical Exam - Summary Physical Exam Summary: Appearance: Ill-appearing, severe epigastric and chest pain distress, well- nourished Skin: Warm, flushed, dry Head: Normal Head/Face inspection, atraumatic Eyes: Conjunctiva clear ENT: Normal inspection Neck: Supple, no nodes, no JVD Respiratory: Lungs clear, normal breath sounds, no respiratory distress Cardio: RRR, No murmur, pulses normal, brisk capillary refill Abdomen: Soft, nontender Bowel sounds: Present Musculoskeletal: Strength Intact/ROM intact, no calf tenderness, no edema, localizing pain from the xiphoid process to the sternal notch Psychological: Normal Neuro: Alert, muscle tone normal, no focal deficit Triage Information Reviewed: Yes Vital Signs On Initial Exam: Initial Vitals Temp Pulse Resp BP Pulse Ox 97.7 F 141 28 156/101 100 02/12/19 15:57 02/12/19 15:57 02/12/19 15:57 02/12/19 15:57 02/12/19 15:57 Vital Signs Reviewed: Yes Diagnostics - Vital Signs Vital Signs Temp Pulse Resp BP Pulse Ox 02/12/19 15:57 97.7 F 141 28 156/101 100 - Laboratory Lab Results: Lab Results 02/12/19 Range/Units 16:00 WBC 22.5 H (3.5-10.8) 10^3/uL RBC 5.10 H (3.70-4.87) 10^6 /uL Hgb 16.2 H (12.0-16.0) g/dL Hct 48 H (35-47) % MCV 95 (80-97) fL MCH 32 H (27-31) pg MCHC 34 (31-36) g/dL RDW 16 H (10-15) % Plt Count 235 (150-450) 10^3/uL MPV 7.2 L (7.4-10.4) fL Neut % (Auto) 93.4 % Lymph % (Auto) 2.7 % [place] % (Auto) 3.6 % Eos % (Auto) 0.1 % Baso % (Auto) 0.2 % Absolute Neuts (auto) 21.1 H (1.5-7.7) 10^3/ul Absolute Lymphs (auto) 0.6 L (1.0-4.8) 10^3/ul Absolute Monos (auto) 0.8 (0-0.8) 10^3/ul Absolute Eos (auto) 0.0 (0-0.6) 10^3/ul Absolute Basos (auto) 0.0 (0-0.2) 10^3/ul Absolute Nucleated RBC 0.0 10^3/ul Nucleated RBC % 0.1 Result Diagrams: 02/12/19 16:00 02/12/19 16:00 Lab Statement: Any lab studies that have been ordered have been reviewed, and results considered in the medical decision making process. - Radiology CXR Radiology Interpretation Completed By: Radiologist Summary of Radiographic Findings: No active cardiopulmonary disease is noted. ED physician has reviewed this report. - Ultrasound US gallbladder Ultrasound Interpretation Completed By: Radiologist Summary of Ultrasound Findings: Echogenic liver consistent with hepatic steatosis. No definite cholelithiasis or biliary duct dilatation is noted. ED physician has reviewed this report. - EKG 1554 Cardiac Rate: Tachycardia - 141bpm EKG Rhythm: Sinus Tachycardia ST Segment: Non-Specific Ectopy: None Summary of EKG Findings: An EKG at 1554 reveals sinus tachycardia at 141bpm with nml AV/IV CT, nml QTc, and nml axis. No acute changes. ED MD has reviewed and interpreted this EKG. Chest Pain Course/Dx - Course Course Of Treatment: Pt is a 38 y/o F presenting to the ED with her friend Franci with a chief complaint of chest pain rated at 8/10 onset initially a couple of days ago. The pain begins at her xiphoid process and spreads mid- sternally to her sternal notch. She reports N/V, CP, decreased appetite, dehydration, palpitations, decreased sleep, fatigue, anxiety, dark urine, dizziness and mild hematemesis from frequent emesis. She denies dysuria, burning with urination, and diarrhea. LNMP 1.5 wks ago. NKDA. She has no PCP. An EKG at 1554 reveals sinus tachycardia at 141bpm with nml AV/IV CT, nml QTc , and nml axis. No acute changes. ED MD has reviewed and interpreted this EKG. Pt's WHAM score is 14, giving the pt Ativan per protocol. I was made aware of the pts lactic acid of 8.0 and her CO2 of 8. Pts hematology shows WBC of 22.5 , RBC of 5.10, Hgb of 16.2, Hct of 48, MCH of 32, RDW of 16, and MPV of 7.2. Her chemistry shows Potassium of 5.1, Chloride of 96, Anion Gap of 33, Creatinine of 1.25, total Bilirubin of 2.60, AST of 161, ALT of 87, CK-MB of 8.5 , total protein of 9.6, Albumin of 5.5, and Globulin of 4.1. Her toxicology shows a Serum Alcohol level of 17. CXR shows: No active cardiopulmonary disease is noted. Gallbladder US shows: Echogenic liver consistent with hepatic steatosis. No definite cholelithiasis or biliary duct dilatation is noted. Pt's dx will include alcohol withdrawal, CP, and vomiting. Pt [facility] be admitted [place] [facility] [place]. Francis as of 1855. - Diagnoses Provider Diagnoses: Alcohol withdrawal, Chest pain, Vomiting - Critical Care Time Critical Care Time: 30-74 min Discharge - Sign-Out/Discharge Documenting (check all that apply): Patient Departure - Discharge Plan Condition: Stable Disposition[place] [place]errals: [facility] [Outside] - Attestation Statements Document Initiated by Scribe: Yes Documenting Scribe: Ryann Driscoll Provider For Whom Scribe is Documenting (Include Credential): Dr. Soraida Acevedo MD. Scribe Attestation: Ryann Figueroa, scribed for Dr. Soraida Acevedo MD. on 02/12/19 at 1902. Status of Scribe Document: Ready
[2019-02-12] MEDS ORDERED: Ondansetron INJ* 2 MG/ML VIAL IV ONE (16:20)
[2019-02-12 16:23] LABS: Albumin 5.5 g/dL (3.2-5.2); Albumin/Globulin Ratio 1.3 (1-3); BUN/Creatinine Ratio 13.6 (8-20); Calcium 9.9 mg/dL (8.6-10.3); EGFR African American 58.4 (>60); EGFR Non-African American 48.2 (>60); Globulin 4.1 g/dL (2-4); Total Bilirubin 2.6 mg/dL (0.2-1.0); Total Protein 9.6 g/dL (6.4-8.9)
[2019-02-12 16:24] LABS: Troponin I 0.03 ng/mL (<0.04)
[2019-02-12] MEDS ORDERED: Famotidine IV* 10 MG/ML 2 ML (20 mg) IV SLOW PU ONE (16:26)
[2019-02-12] MEDS: NS 0.9% 1000 ML** 2,000 ML IV ONE (16:51)
[2019-02-12 16:55] LABS: Potassium 5.1 mmol/L (3.5-5.0)
[2019-02-12] MEDS ORDERED: Magnesium Sulfate 1 GM IV* 1 GM/100 ML BAG IV ONE (17:06)
[2019-02-12 17:07] LABS: Activated Partial Thrombo Time 30.5 seconds (26.0-38.0); INR 0.89 (0.82-1.09)
[2019-02-12] MEDS ORDERED: Thiamine IV* 100 MG, Folic Acid IV* 1 MG, Multiple Vitamin IV ADULT* 10 ML in NS 0.9% 1... IV ONE (17:10)
[2019-02-12 17:18] LABS: TSH (Thyroid Stimulating Horm) 0.66 mcIU/mL (0.34-5.60)
[2019-02-12 17:23] LABS: C Reactive Protein 4.76 mg/L (<8.01); CKMB ng/mL 8.5 ng/mL (0.6-6.3)
[2019-02-12] MEDS ORDERED: Lorazepam PYXIS KEY PRN (17:52)
[2019-02-12] MEDS ORDERED: Multivitamins/Minerals TAB PO SCH (18:00)
[2019-02-12] MEDS: LORazepam INJ* 2 MG/ML 1 ML VIAL IV PUSH SCH ×3 (18:12→21:18)
--- NOTE | 2019-02-12 19:59 | HP ---
History of Present Illness - History of Present Illness Reason for Visit: Chest Pain History of Present Illness: Ms Babcock is a 38 year old female with PMHx of HTN, Alcohol abuse with DUI history and has cut down here due to chest pain. Pain rated at 8/10 onset initially a few of days ago. The pain begins at her xiphoid process and spreads mid-sternally to her sternal notch. She reports Nausea and vomiting for the last two days. Decreased appetite as she was unable to keep anything down, she did notice some blood in the vomit once in a while. Dehydration, palpitations, decreased sleep, difficulty breathing, fatigue, anxiety, dark urine, dizziness. She denies dysuria, burning with urination, and diarrhea. She did state she had a slip up with her alcohol abuse has finished roughly 2 bottles of vodka over a week before stopping completely on Wednesday. Roommates present at bedside. Past Medical History HTN Severe Anxiety with symptoms of body lockdown Insomnia Alcohol Abuse has had DUI and cut back for a year but has slipped up recently. Past Surgical History Right wrist fracture while playing softballs Right ankle fracture while playing softballs Nasal fracture repair twice at least while playing softballs Right inguinal hernia repair at age 9 Concussion twice due to softball once and once running into the pole Social History No smoking, alcohol abuse as mentioned used to drink a lot but cut down a lot over the last year but has had slip ups and again stopped as of Wednesday, no other drug use. Works in [employer]. Lives with roommates. Family History Mother at age 62 due to heart attack Father at age 32 due to colon cancer Allergies Allergy/AdvReac Type Severity Reaction Status Date / Time No Known Allergies Allergy Verified 02/12/19 15:59 Home Medications Medication Instructions Recorded Confirmed Type Metoprolol Succinate XL TAB* 25 mg PO DAILY 09/10/17 02/12/19 History [Toprol XL TAB*] Magnesium Oxide TAB* [MagOx 400 400 mg PO BID #60 tab 01/19/18 02/12/19 Rx TAB*] Ergocalciferol CAP* [Drisdol CAP*] 50,000 unit PO Q7D 30 Days #4 cap 03/04/18 Rx Folic Acid TAB* [Folvite TAB*] 1 mg PO DAILY tab 05/26/18 Rx Multivitamins/Minerals TAB* 1 tab PO DAILY tab 05/26/18 Rx [Theragran/minerals TAB*] Thiamine TAB* [Vitamin B-1 TAB 100 100 mg PO DAILY tab 05/26/18 Rx MG*] Losartan TAB* [Cozaar TAB*] 100 mg PO BID 02/12/19 02/12/19 History Potassium Chlor TAB* [Potassium 20 meq PO BID 02/12/19 02/12/19 History Chlor TAB 20 MEQ*] amLODIPine TAB* [Norvasc 5 mg TAB*] 10 mg PO BID 02/12/19 02/12/19 History Review of Systems - Measurements Intake and Output: Intake and Output Last 24 Hours 02/10/19 02/11/19 02/12/19 02/13/19 06:59 06:59 06:59 06:59 Intake Total 2100 Balance 2100 Weight 170 lb Intake: IV Fluids 2100 - Review of Systems Constitutional Symptoms: Negative: Weight Gain, Weight Loss, Fever Eyes: Positive: Change in Vision - in left eye Pulmonary: Positive: Cough, Sputum - yellow green, Shortness of Breath Cardiology: Positive: Chest Pain, Shortness of Breath, Palpitations Negative: Edema Gastroenterology: Positive: Nausea, Vomiting Genital - Urinary: Positive: Other - Decreased urination Neurology: Positive: Change in Vision, Dizziness Objective Active Medications: Lorazepam (Ativan Inj*) 0 - 3 mg IV PUSH .PER [facility] PROTOCOL [facility]; Protocol Last Admin: 02/12/19 19:37 Dose: 2 mg Miscellaneous (Ativan Pyxis Omer) 1 ea N/A .PYXIS OMER PRN PRN Reason: PER PROTOCOL Multivitamins/Minerals (Theragran/Minerals Tab*) 1 tab PO DAILY [facility] Last Admin: 02/12/19 18:34 Dose: Not Given Vital Signs - 8 hr 02/12/19 02/12/19 02/12/19 15:57 16:27 16:57 Temperature 97.7 F Pulse Rate 141 132 118 Respiratory 28 14 Rate Blood Pressure 156/101 152/103 146/93 (mmHg) O2 Sat by Pulse 100 99 99 Oximetry 02/12/19 02/12/19 02/12/19 17:01 18:01 18:12 Temperature Pulse Rate 120 111 Respiratory 23 25 23 Rate Blood Pressure (mmHg) O2 Sat by Pulse 99 100 Oximetry 02/12/19 02/12/1902/12/19 18:27 18:57 19:01 Temperature Pulse Rate 117 117 113 Respiratory 17 17 25 Rate Blood Pressure 139/94 145/86 (mmHg) O2 Sat by Pulse 99 98 98 Oximetry 02/12/19 19:37 Temperature Pulse Rate Respiratory 27 Rate Blood Pressure (mmHg) O2 Sat by Pulse Oximetry Oxygen Devices in Use Now: None Eyes: No Scleral Icterus, PERRLA Ears/Nose/Mouth/Throat: NL Teeth, Lips, Gums, Clear Oropharnyx, Mucous Membranes Moist Neck: NL Appearance and Movements; NL JVP Respiratory: Clear to Auscultation Cardiovascular: NL Sounds; No Murmurs; No JVD - Tachycardic to 125. Abdominal: NL Sounds; No Tenderness; No Distention, No Hepatosplenomegaly Extremities: No Edema Skin: No Rash or Ulcers Neurological: Alert and Oriented x 3, NL Sensation, NL Muscle Strength and Tone Result Diagrams: 02/12/19 16:00 02/12/19 16:00 Additional Lab and Data: Lab Results 02/12/19 Range/Units 16:00 WBC 22.5 H (3.5-10.8) 10^3/uL RBC 5.10 H (3.70-4.87) 10^6 /uL Hgb 16.2 H (12.0-16.0) g/dL Hct 48 H (35-47) % MCV 95 (80-97) fL MCH 32 H (27-31) pg MCHC 34 (31-36) g/dL RDW 16 H (10-15) % Plt Count 235 (150-450) 10^3/uL MPV 7.2 L (7.4-10.4) fL Neut % (Auto) 93.4 % Lymph % (Auto) 2.7 % [place] % (Auto) 3.6 % Eos % (Auto) 0.1 % Baso % (Auto) 0.2 % Absolute Neuts (auto) 21.1 H (1.5-7.7) 10^3/ul Absolute Lymphs (auto) 0.6 L (1.0-4.8) 10^3/ul Absolute Monos (auto) 0.8 (0-0.8) 10^3/ul Absolute Eos (auto) 0.0 (0-0.6) 10^3/ul Absolute Basos (auto) 0.0 (0-0.2) 10^3/ul Absolute Nucleated RBC 0.0 10^3/ul Nucleated RBC % 0.1 Diagnostic Imaging: US GALL BLADDER IMPRESSION: Echogenic liver consistent with hepatic steatosis. No definite cholelithiasis or biliary duct dilatation is noted. CHEST AP OR PORT IMPRESSION: NO ACTIVE CARDIOPULMONARY DISEASE IS NOTED. EKG Data: EKG shows sinus tachycardia at 141bpm compared to old EKG from 2018 no significant change except HR went up from 126 to 141 today. Assess/Plan/Problems-Billing Assessment: 38year old Female with alcohol abuse with recent relapse quit again on wednesday here with chest pain, nausea, recurrent vomiting with episode blood tinged. Possibly all related to alcohol withdrawal. Noted to have severe lactic acidosis likely from severe dehydration. - Patient Problems (1) Chest pain Current Visit: Yes Status: Acute Code(s): R07.9 - CHEST PAIN, UNSPECIFIED SNOMED Code(s): 11739820 Comment: Likely due to severe dehydration and tachycardia related. Minimal troponin noted. Serial troponin. Monitor on Tele. Consider beta-kathy once BP elevated. ECHO ordered. Agressive hydration. (2) Lactic acidosis Current Visit: Yes Status: Acute Code(s): E87.2 - ACIDOSIS SNOMED Code(s) : 57377420 Comment: Due to dehydration on IVF Serial lactic acid level. pH on VBG shows severe acidosis should improve as patient fluid status improves. (3) Alcohol withdrawal Current Visit: No Status: Acute Code(s): F10.239 - ALCOHOL DEPENDENCE WITH WITHDRAWAL, UNSPECIFIED SNOMED Code(s): 450656665 Comment: [facility] protocol Banana bag for 3 more days (4) Acute kidney injury Current Visit: Yes Status: Acute Code(s): N17.9 - ACUTE KIDNEY FAILURE, UNSPECIFIED SNOMED Code(s): 54955788 Comment: Due to dehydration on IVF. Repeat level in AM. Strick Is and Os. UA pending. (5) HTN (hypertension) Current Visit: No Status: Chronic Code(s): I10 - ESSENTIAL (PRIMARY) HYPERTENSION SNOMED Code(s): 95568076 Comment: Low normal BPs Hold Home meds (metoprolol, amlodipine, losartan) (6) Leukocytosis Current Visit: No Status: Acute Code(s): D72.829 - ELEVATED WHITE BLOOD CELL COUNT, UNSPECIFIED SNOMED Code(s): 853179656 Comment: Even though patient does meet SIRS criteria both the tachycardia and leukocytosis can be explained by her dehydration. There is no source of sepsis. Awaiting UA to determine any UTI. No ABx at this time. Repeat labs after hydration in AM. (7) Transaminitis Current Visit: No Status: Acute Code(s): R74.0 - NONSPEC ELEV OF LEVELS OF TRANSAMNS & LACTIC ACID DEHYDRGNSE SNOMED Code(s): 313588817 Comment: LFT and US abdomen findings consistant with her alcohol abuse. (8) DVT prophylaxis Current Visit: No Status: Acute Code(s): PGU6669 - SNOMED Code(s): 615453661 Comment: Ambulation and SCDs
[2019-02-12 20:03] LABS: Troponin I 0.04 ng/mL (<0.04)
[2019-02-12] MEDS ORDERED: Ondansetron INJ* 2 MG/ML VIAL IV PRN (20:44)
[2019-02-12] MEDS ORDERED: NS 0.9% 1000 ML** 1,000 ML IV SCH (20:45)
[2019-02-12] MEDS: NS 0.9% 1000 ML** 3,000 ML IV ONE ×3 (20:47→21:37)
[2019-02-12 20:57] LABS: Urine Appearance Cloudy; Urine Bacteria Absent (Absent); Urine Bilirubin Negative (Negative); Urine Blood 1+ (Negative); Urine Color Yellow; Urine Glucose 2+(150 mg/dL) (Negative); Urine Ketones 2+ (Negative); Urine Nitrite Negative (Negative); Urine Protein 1+(30 mg/dL) (Negative); Urine Red Blood Cell Trace(0-2/hpf) (Absent); Urine Specific Gravity 1.017 (1.010-1.030); Urine Squamous Epithelial Cell Present (Absent); Urine Urobilinogen Negative (Negative); Urine White Blood Cell 3+(>20/hpf) (Absent)
[2019-02-12 21:14] LABS: Urine Benzodiazepine Screen None Detected (None Detect); Urine Opiates Screen None Detected (None Detect)
[2019-02-12 23:56] LABS: Troponin I 0.04 ng/mL (<0.04)
[2019-02-13 06:30] LABS: ABS Eosinophils 0.1 10^3/ul (0-0.6); ABS Lymphocytes 1.1 10^3/ul (1.0-4.8); ABS Monocytes 0.4 10^3/ul (0-0.8); ABS Neutrophils 8.1 10^3/ul (1.5-7.7); Eosinophil % 1.1 %; Hematocrit 33 % (35-47); Hemoglobin 11.7 g/dL (12.0-16.0); Lymphocyte % 11.2 %; Mean Corpuscular HGB Conc 35 g/dL (31-36); Mean Corpuscular Hemoglobin 32 pg (27-31); Mean Corpuscular Volume 92 fL (80-97); Mean Platelet Volume 6.8 fL (7.4-10.4); Platelet Count 112 10^3/uL (150-450); Red Blood Count 3.64 10^6 /uL (3.70-4.87); Red Cell Distribution Width 15 % (10-15); White Blood Count 9.7 10^3/uL (3.5-10.8)
[2019-02-13 06:47] LABS: Albumin 3.5 g/dL (3.2-5.2); Albumin/Globulin Ratio 1.7 (1-3); BUN/Creatinine Ratio 14.5 (8-20); Calcium 8.3 mg/dL (8.6-10.3); EGFR African American 131.1 (>60); EGFR Non-African American 108.3 (>60); Globulin 2.1 g/dL (2-4); HDL Cholesterol 85.6 mg/dL; Potassium 3.8 mmol/L (3.5-5.0); Total Bilirubin 2.3 mg/dL (0.2-1.0); Total Protein 5.6 g/dL (6.4-8.9)
[2019-02-13] MEDS: Multivitamins/Minerals TAB PO SCH (09:44)
[2019-02-13] MEDS: Metoprolol Succinate XL TAB* 25 MG PO SCH (09:44)
[2019-02-13] MEDS: Thiamine TAB* 100 MG TAB PO SCH (09:44)
[2019-02-13] MEDS: Thiamine IV 100 MG, Folic Acid IV* 1 MG, Multiple Vitamin IV ADULT* 10 ML in NS 0.9% 10... IV SCH (09:44)
[2019-02-13] MEDS: Folic Acid TAB* 1 MG PO SCH (09:44)
[2019-02-13] MEDS ORDERED: Al Hydrox/Mg Hydrox/Simet LIQ* 30 ML UDC PO PRN (11:25)
[2019-02-13] MEDS: Pantoprazole IV* 40 MG IV SCH ×2 (12:22→20:11)
--- NOTE | 2019-02-13 12:55 | ECHO ---
*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 History: Risk factors: Hypertension. Heavy ETOH use. Conclusions Summary: 1. Left ventricle: Systolic function is normal. The estimated ejection fraction is 55-60%. Wall motion is normal; there are no regional wall motion abnormalities. 2. Right ventricle: Systolic function is normal. 3. Mitral valve: There is trace to mild regurgitation. 4. Aortic valve: There is no evidence of stenosis. There is no significant regurgitation. 5. Tricuspid valve: There is physiologic regurgitation. 6. Ascending aorta: The ascending aorta is appears normal. 7. Pulmonary arteries: Systolic pressure is within the normal range. Study data: Transthoracic echocardiogram. Procedure: Transthoracic echocardiography was performed. Image quality was fair. Complete 2D, spectral Doppler, and color flow Doppler. Location: Bedside. Patient status: Inpatient. Patient room number: 444-1. Rhythm: Normal sinus rhythm. Findings Left ventricle: The cavity size is normal. Wall thickness is mildly increased. Systolic function is normal. The estimated ejection fraction is 55-60%. Wall motion is normal; there are no regional wall motion abnormalities. There is no consistent Doppler evidence of clinically significant diastolic dysfunction. Right ventricle: The cavity size is normal. The moderator band is in a normal position. Systolic function is normal. Systolic pressure is within the normal range. Left atrium: The atrium is normal in size. Right atrium: The atrium is normal in size. Mitral valve: The leaflets are normal thickness. There is no evidence of stenosis. There is trace to mild regurgitation. Aortic valve: The valve is trileaflet. The leaflets are normal thickness. There is no evidence of stenosis. There is no significant regurgitation. Tricuspid valve: The leaflets are normal thickness. There is no evidence of stenosis. There is physiologic regurgitation. Pulmonic valve: The leaflets are normal thickness. There is no evidence of stenosis. There is trace regurgitation. Aorta: Ascending aorta: The ascending aorta is appears normal. Aortic arch: The aortic arch is appears normal. The aortic root is not dilated. Pericardium: There is no significant pericardial effusion. Pulmonary arteries: The main pulmonary artery is normal-sized. Systolic pressure is within the normal range. Systemic veins: Inferior vena cava: The vessel is normal in size. The respirophasic diameter changes are in the normal range (>= 50%). Measurements Left ventricle Value Ref Aortic valve Value Ref AVANI, LAX 4.1 cm 3.8 - 5.2 Romero diam, ED 1.8 cm ----- ESD, LAX 3.0 cm 2.2 - 3.5 Peak v, S 1.49 m/sec ----- FS, LAX 28 % 27 - 45 VTI, S 28.7 cm ----- PW, ED, LAX (H) 1.1 cm 0.6 - 0.9 Mean grad, S 5.0 mm Hg ----- FS 28 % 27 - 45 Peak grad, S 9.0 mm Hg ----- PW, ED (H) 1.1 cm 0.6 - 0.9 LVOT/AV, VTI ratio 0.8 ----- E', lat romero, TDI 14.3 cm/sec >=10.0 E/e', lat romero, 5 Mitral valve Value Ref TDI Peak E 0.67 m/sec ----- E', med romero, TDI 11.6 cm/sec >=7.0 Peak A 0.61 m/sec --- -- E/e', med romero, 6 Decel time 155 ms ----- TDI Peak E/A ratio 1.1 ----- E', avg, TDI 13.0 cm/sec E/e', avg, TDI 5 <=14 Pulmonic valve Value Ref Peak v, S 1.07 m/sec ----- LVOT Value Ref Peak grad, S 5.0 mm Hg ----- Peak josette, S 1.17 m/sec VTI, S 23.0 cm Tricuspid valve Value Ref Peak grad, S 5 mm Hg TR peak v 2.13 m/sec <=2.8 Mean grad, S 3 mm Hg Peak RV-RA grad, S 18 mm Hg ----- Ventricular septum Value Ref Aortic root Value Ref IVS, ED (H) 1.1 cm 0.6 - 0.9 Root diam 2.8 cm <3.7 Right ventricle Value Ref Ascending aorta Value Ref AVANI, LAX 2.8 cm AAo AP diam, S 3.0 cm ----- AVANI minor ax, A4C (H) 4.0 cm 1.9 - 3.5 mid Aortic arch Value Ref Pressure, S 21 mm Hg Arch diam 2.1 cm ----- Left atrium Value Ref Decending aorta Value Ref AP dim, ES 2.80 cm 2.70 - Nigel peak josette 1.22 m/sec ----- 3.80 ML dim, A4C 3.9 cm Pulmonary artery Value Ref SI dim, A4C 5.0 cm Pressure, S 16.0 mm Hg ----- Vol/bsa, ES, 1-p 24 ml/m^2 11 - 40 A4C Inferior vena cava Value Ref Vol/bsa, ES, A/L 29 ml/m^2 16 - 34 Diam 2.0 cm ----- Right atrium Value Ref SI dim, ES 5.0 cm 3.4 - 5.3 ML dim, ES, A4C 3.9 cm 2.6 - 4.4 SI dim, ES, A4C 5.0 cm 3.4 - 5.3 Estimated RAP 3 mm Hg Legend: (L) and (H) zoey values outside specified reference range. Prepared and electronically signed by Enrico Dave MD 02/13/2019 12:55
[2019-02-13] MEDS: Acetaminophen TAB* 325 MG PO PRN ×2 (14:12→20:10)
--- NOTE | 2019-02-13 14:45 | PN ---
Subjective Date of Service: 02/13/19 Interval History: Patient had pain in anterior chest after trying broth and apple juice this morning. She reports blood in vomitus, no rectal bleeding or melena. She reports DUI, in drug court. She goes to and is willing to go to outpatient treatment/rehab. She works 2 jobs. Family History: Unchanged from Admission Social History: Unchanged from Admission Past Medical History: Unchanged from Admission Objective Active Medications: Acetaminophen (Tylenol Tab*) 650 mg PO Q4H PRN PRN Reason: FEVER/HEADACHE Last Admin: 02/13/19 14:12 Dose: 650 mg Al Hydrox/Mg Hydrox/Simethicone (Maalox Plus*) 30 ml PO Q4H PRN PRN Reason: DYSPEPSIA Folic Acid (Folvite Tab*) 1 mg PO DAILY [facility] Last Admin: 02/13/19 09:44 Dose: 1 mg Thiamine HCl 100 mg/ Folic Acid 1 mg/ Multivitamins 10 ml / Sodium Chloride 1, 011.2 mls @ 249.013 mls/hr IV DAILY [facility] Stop: 02/16/19 08:59 Last Admin: 02/13/19 09:44 Dose: 249.013 mls/hr Lorazepam (Ativan Inj*) 0 - 3 mg IV PUSH .PER [facility] PROTOCOL [facility]; Protocol Last Admin: 02/12/19 21:18 Dose: 1.5 mg Metoprolol Succinate (Toprol Xl Tab*) 25 mg PO DAILY [facility] Last Admin: 02/13/19 09:44 Dose: 25 mg Miscellaneous (Ativan Pyxis Omer) 1 ea N/A .PYXIS OMER PRN PRN Reason: PER PROTOCOL Multivitamins/Minerals (Theragran/Minerals Tab*) 1 tab PO DAILY [facility] Last Admin: 02/13/19 09:44 Dose: 1 tab Ondansetron HCl (Zofran Inj*) 4 mg IV Q4H PRN PRN Reason: NAUSEA/VOMITING Pantoprazole Sodium (Protonix Iv*) 80 mg IV BID [facility] Last Admin: 02/13/19 12:22 Dose: 80 mg Thiamine HCl (Vitamin B-1 Tab*) 100 mg PO DAILY [facility] Last Admin: 02/13/19 09:44 Dose: 100 mg Vital Signs - 8 hr 02/13/19 02/13/19 02/13/19 07:19 08:00 09:27 Temperature 37.0 C 37.2 C Pulse Rate 100 92 Respiratory 16 16 16 Rate Blood Pressure 126/77 147/94 (mmHg) O2 Sat by Pulse 99 100 Oximetry 02/13/19 02/13/19 11:20 13:21 Temperature 37.1 C 37.2 C Pulse Rate 101 100 Respiratory 16 16 Rate Blood Pressure 146/96 132/82 (mmHg) O2 Sat by Pulse 100 100 Oximetry Oxygen Devices in Use Now: None Appearance: alert, no distress Eyes: No Scleral Icterus Ears/Nose/Mouth/Throat: Clear Oropharnyx Neck: NL Appearance and Movements; NL JVP Respiratory: Symmetrical Chest Expansion and Respiratory Effort Cardiovascular: NL Sounds; No Murmurs; No JVD, RRR Abdominal: NL Sounds; No Tenderness; No Distention Lymphatic: No Cervical Adenopathy Neurological: Alert and Oriented x 3 Lines/Tubes/Other Access: Clean, Dry and Intact Peripheral IV Nutrition: Taking PO's Result Diagrams: 02/13/19 06:19 02/13/19 06:19 Additional Lab and Data: Laboratory Tests 02/13/19 02/13/19 06:19 06:19 VBG pH 7.36 VBG pCO2 29 L VBG pO2 52.0 H VBG HCO3 18.7 L VBG O2 Saturation 91.0 H VBG Base Excess -7.7 L AST 58 H Assess/Plan/Problems-Billing Assessment: 38 year old Female with alcohol abuse with recent relapse here with vomiting/ blood tinged. - Patient Problems (1) Upper GI bleed Current Visit: Yes Status: Acute Priority: High Code(s): K92.2 - GASTROINTESTINAL HEMORRHAGE, UNSPECIFIED SNOMED Code(s): 52453406 Comment: -No clinically active bleeding -Suspect blood in vomitus due to andre-lockhart tear -Suspect HGB drop due to hemoconcentration now treated w/ IVF -Will recheck CBC tomorrow, after fluids stopped (2) Alcohol abuse Current Visit: No Status: Acute Priority: Medium Code(s): F10.10 - ALCOHOL ABUSE, UNCOMPLICATED SNOMED Code(s): 79496694 Comment: - Continue [place] protocol - pt willing to have outpatient treatment, discussed alcohol & drug [place] [employer] [place] (3) Lactic acidosis Current Visit: Yes Status: Acute Priority: Medium Code(s): E87.2 - ACIDOSIS SNOMED Code(s): 78894917 Comment: -Due to dehydration -resolved (4) Chest pain Current Visit: Yes Status: Acute Priority: Medium Code(s): R07.9 - CHEST PAIN, UNSPECIFIED SNOMED Code(s): 72294491 Comment: -Serial troponins minimally elevated -ECHO reassuring -continue telemetry for 24 more hours Status and Disposition: inpatient
[2019-02-14] MEDS: LORazepam INJ* 2 MG/ML 1 ML VIAL IV PUSH SCH (04:41)
[2019-02-14 04:53] LABS: Hematocrit 37 % (35-47); Hemoglobin 12.6 g/dL (12.0-16.0); Mean Corpuscular HGB Conc 35 g/dL (31-36); Mean Corpuscular Hemoglobin 32 pg (27-31); Mean Corpuscular Volume 91 fL (80-97); Platelet Count 97 10^3/uL (150-450); Red Cell Distribution Width 15 % (10-15); White Blood Count 8.6 10^3/uL (3.5-10.8)
[2019-02-14 05:11] LABS: Albumin 3.9 g/dL (3.2-5.2); Albumin/Globulin Ratio 1.4 (1-3); BUN/Creatinine Ratio 8.5 (8-20); EGFR African American 180.4 (>60); EGFR Non-African American 149.1 (>60); Globulin 2.7 g/dL (2-4); Total Bilirubin 1.4 mg/dL (0.2-1.0); Total Protein 6.6 g/dL (6.4-8.9)
[2019-02-14 06:19] LABS: ABS Eosinophils 0.4 10^3/ul (0-0.6); ABS Lymphocytes 1.5 10^3/ul (1.0-4.8); ABS Monocytes 0.4 10^3/ul (0-0.8); ABS Neutrophils 6.3 10^3/ul (1.5-7.7); Eosinophil % 4.2 %; Lymphocyte % 17.5 %
[2019-02-14] MEDS: Multivitamins/Minerals TAB PO SCH (07:27)
[2019-02-14] MEDS: Folic Acid TAB* 1 MG PO SCH (07:27)
[2019-02-14] MEDS: Thiamine TAB* 100 MG TAB PO SCH (07:27)
[2019-02-14] MEDS: Metoprolol Succinate XL TAB* 25 MG PO SCH (07:28)
[2019-02-14] MEDS ORDERED: Potassium Chlor TAB* 20 MEQ TAB.ER PO SCH (09:00)
[2019-02-14] MEDS: Pantoprazole IV* 40 MG IV SCH (09:28)
[2019-02-14] MEDS: Thiamine IV 100 MG, Folic Acid IV* 1 MG, Multiple Vitamin IV ADULT* 10 ML in NS 0.9% 10... IV SCH (09:39)
[2019-02-14 13:42] VITALS: BP 139/97
[2019-02-15] MEDS ORDERED: Pantoprazole TAB * 40 MG TAB PO SCH (09:00)
--- NOTE | 2019-02-15 15:54 | DS ---
CC: Dr. Flako Malagon, [facility]; [facility] [place] [facility]; Dr. Rutledge; Dr. Guzman, Gastroenterology * DISCHARGE SUMMARY: DATE OF ADMISSION: 02/12/19 DATE OF DISCHARGE: 02/14/19 PRIMARY DIAGNOSIS: Upper gastrointestinal hemorrhage, suspected Pratibha-Regalado tear. SECONDARY DIAGNOSES: 1. Dehydration with acute kidney injury. 2. Lactic acidosis. 3. Alcohol abuse with withdrawal. 4. Transaminitis. 5. Insomnia. 6. Hypertension. 7. Anxiety. 8. Vitamin D deficiency. MEDICATIONS ON DISCHARGE: 1. Amlodipine 10 mg p.o. daily. 2. Cozaar 100 mg p.o. daily. 3. Toprol-XL 25 mg p.o. daily. 4. Potassium chloride 20 mEq p.o. daily. 5. Tylenol 650 mg p.o. q.4 hours p.r.n. pain. 6. Maalox 30 mL p.o. q.4 hours p.r.n. dyspepsia. 7. Ergocalciferol 50,000 units p.o. weekly. 8. Multivitamin 1 tab p.o. daily. 9. Folic acid 1 mg p.o. daily. 10. Thiamine 100 mg p.o. daily. 11. Magnesium 400 mg p.o. b.i.d. 12. Pantoprazole 40 mg p.o. daily. HOSPITAL COURSE: A 38-year-old woman with relapsing alcohol abuse, presented to the emergency department with episodes of emesis streaked with blood. She had pain in the epigastric, subxiphoid area. She had relapsed on alcohol in the week prior to admission and was drinking about 2 bottles of vodka per day. The patient's initial hemoglobin was elevated at 16.2 and fell to 11.7 with hydration. After hydration was stopped, she equilibrated at hemoglobin of 12.6. She did not pass any stool for guaiac. Coags were negative. Initial lactic acid was quite elevated at 8.0, but with hydration fell to 0.9. Initial venous blood gas; pH was 7.20, pCO2 of 26, pO2 of 39, consistent with a metabolic acidosis. Initial creatinine was 1.25 and fell to 0.47 with hydration consistent with acute kidney injury and prerenal azotemia. Initial troponin was 0.03 and it brody to 0.04 on 2 repeats. The patient was given IV and then oral Protonix to treat possible GI bleed. Because she did not have any montrell hematemesis or melena and her hemoglobin remained in a non-dangerous range , she did not see Gastroenterology for consult inpatient. However, it is recommended that she be referred to outpatient Gastroenterology for assessment for gastric ulcer versus Pratibha-Regalado tear. STATUS: Inpatient. DISPOSITION: To home. CONDITION: Stable. DIET: Regular. ACTIVITY: As tolerated. TIME SPENT: I spent more than 35 minutes with the patient on the day of discharge and also completing paperwork and signing prescriptions for discharge. [id number]/[facility] #: [id number] KRISTEN
== END 2019-02-14 15:49 | disposition home or self-care (01) | DRG 369 ==
LOC: ED 15:46 → MEDTELE 20:44
PROVIDERS: ADMIT Internal Medicine; ATTEND Internal Medicine
DX: K22.6 Gastro-esophageal laceration-hemorrhage syndrome (principal); N17.9 Acute kidney failure, unspecified; E87.2 Acidosis; F10.239 Alcohol dependence with withdrawal, unspecified; E86.0 Dehydration; Y90.0 Blood alcohol level of less than 20 mg/100 ml; R74.0 Nonspecific elevation of levels of transaminase and lactic acid dehydrogenase [LDH]; G47.00 Insomnia, unspecified; D72.829 Elevated white blood cell count, unspecified; R07.9 Chest pain, unspecified; I10 Essential (primary) hypertension; F41.9 Anxiety disorder, unspecified; E55.9 Vitamin D deficiency, unspecified; Z82.49 Family history of ischemic heart disease and other diseases of the circulatory system; Z80.0 Family history of malignant neoplasm of digestive organs; Z79.899 Other long term (current) drug therapy
CPT/HCPCS: 36415; 71045; 76705; 80053; 80061; 80307; 80320; 81003; 81015; 82150; 82550; 82553; 82803; 83036; 83605; 83690; 83735; 84443; 84484; 85025; 85060; 85610; 85730; 86140; 87086; 93005; 93306; 99284; A9270-GY; G0480; J2060; J2405; J3411; J3475

== ENCOUNTER 2019-03-20 19:22 | Inpatient (IN) | payer SELFPAY ==
[2019-03-20] MEDS ORDERED: Lorazepam PYXIS KEY PRN (19:36)
[2019-03-20] MEDS ORDERED: LORazepam INJ* 2 MG/ML 1 ML VIAL IV PUSH ONE (19:36)
[2019-03-20] MEDS ORDERED: NS 0.9% 1000 ML** 1,000 ML IV ONE ×2 (19:37→20:17)
--- NOTE | 2019-03-20 19:37 | ED ---
Neurological HPI - HPI Summary HPI Summary: Patient is a 38 y/o F w/ Hx of seizure who presents to ED via EMS for concerns of possible seizure. She states that she has not had her seizure medications in over 3 weeks and felt that a seizure was oncoming this evening. As a result, she called EMS. While en route to ED, patient had complaints of SOB and CP. EMS gave 324 ASA, 1 nitro, and 4 mg Zofran. PMHx of HTN, alcohol abuse, and anxiety. Patient had been seen in ED around four weeks ago for complaints of chest pain and was admitted to [facility] for evaluation. On triage, pain is denied, nothing is noted to aggravate/alleviate Sx. Home medications and allergies are reviewed. - History of Current Complaint Stated Complaint: SEIZURES PER EMS Time Seen by Provider: 03/20/19 19:26 Hx Obtained From: Patient, EMS Onset/Duration: Started hours ago Current Severity: None Pain Intensity: 0 Pain Scale Used: 0-10 Numeric Character: Other: - patient feels that she has a seizure coming on Aggravating: Nothing Alleviating: Nothing Associated Signs and Symptoms: Positive: Seizure - patient feels that she has a seizure coming on, Chest Pain, Shortness of Breath - Additional Pertinent History Primary Care Physician: [id number] - Allergy/Home Medications Allergies/Adverse Reactions: Allergies Allergy/AdvReac Type Severity Reaction Status Date / Time No Known Allergies Allergy Verified 03/20/19 19:30 PMH/Surg Hx/FS Hx/Imm Hx Endocrine/Hematology History: Denies: Hx Diabetes Cardiovascular History: Reports: Hx Hypertension Respiratory History: Reports: Hx Asthma Sensory History: Denies: Hx Contacts or Glasses, Hx Eye Injury, Hx Legally Blind, Hx Macular Degeneration, Hx Vision Problem, Hx Hearing Aid, Other Sensory Impairments Opthamlomology History: Denies: Hx Contacts or Glasses, Hx Eye Injury, Hx Legally Blind, Hx Macular Degeneration, Hx Vision Problem, Other Sensory Impairments Psychiatric History: Reports: Hx Anxiety, Hx Depression, Hx Substance Abuse - ETOH abuse, recent binge - Surgical History Surgery Procedure, Year, and Place: hernia repair at age 9 Infectious Disease History: No Infectious Disease History: Denies: Hx Clostridium Difficile, Hx of Known/Suspected MRSA, Hx Shingles, Hx Tuberculosis, Traveled Outside the [place] in Last 30 Days - Family History Known Family History: Positive: Cardiac Disease - [place] - mother, Other - colon [place] - father - Social History Alcohol Use: Pt admits to 2x a week usage currently Alcohol Amount: "quite a bit" Hx Substance Use: No Substance Use Type: Reports: None Substance Use Comment - Amount & Last Used: Per pt, 1.5 weeks prior to admission Hx Tobacco Use: Yes Smoking Status (MU): Former Smoker Review of Systems Positive: Chest Pain Positive: Shortness Of Breath Neurological: Other - patient feels that she has a seizure coming on All Other Systems Reviewed And Are Negative: Yes Physical Exam - Summary Physical Exam Summary: VITAL SIGNS: Reviewed. GENERAL: Patient is a well-developed and nourished female who is lying comfortable in the stretcher. Patient is not in any acute respiratory distress. Anxious appearing. Patient has voluntary contractions of her hands and feet. However, it was easy to stretch out her hands and feet. HEAD AND FACE: No signs of trauma. No ecchymosis, hematomas or skull depressions. No sinus tenderness. EYES: PERRLA, EOMI x 2, No injected conjunctiva, no nystagmus. EARS: Hearing grossly intact. Ear canals and tympanic membranes are within normal limits. MOUTH: Oropharynx within normal limits. NECK: Supple, trachea is midline, no adenopathy, no JVD, no carotid bruit, no c- spine tenderness, neck with full ROM CHEST: Symmetric, no tenderness at palpation LUNGS: Hyperventilating. Clear to auscultation bilaterally. No wheezing or crackles. CVS: Tachycardic, S1 and S2 present, no murmurs or gallops appreciated. ABDOMEN: Soft, non-tender. No signs of distention. No rebound no guarding, and no masses palpated. Bowel sounds are normal. EXTREMITIES: FROM in all major joints, no edema, no cyanosis or clubbing. NEURO: Alert and oriented x 3. No acute neurological deficits. Speech is normal and follows commands. SKIN: Dry and warm Triage Information Reviewed: Yes Vital Signs On Initial Exam: Initial Vitals Temp Pulse Resp BP Pulse Ox 98.5 F 160 18 180/114 99 03/20/19 19:24 03/20/19 19:24 03/20/19 19:24 03/20/19 19:24 03/20/19 19:24 Vital Signs Reviewed: Yes Diagnostics - Vital Signs Vital Signs Temp Pulse Resp BP Pulse Ox 03/20/19 19:24 98.5 F 160 18 180/114 99 - Laboratory Result Diagrams: 03/20/19 19:53 03/20/19 19:53 Lab Statement: Any lab studies that have been ordered have been reviewed, and results considered in the medical decision making process. - EKG 1932 Cardiac Rate: Other Rate - EKG showed sinus arrhythmia with rate of 150 BPM Summary of EKG Findings: EKG showed sinus arrhythmia with rate of 150 BPM Course/Dx - Course Course Of Treatment: Patient is a 38 y/o F w/ Hx of seizure who presents to ED via EMS for concerns of possible seizure. She states that she has not had her seizure medications in over 3 weeks and felt that a seizure was oncoming this evening. As a result, she called EMS. While en route to ED, patient had complaints of SOB and CP. EMS gave 324 ASA, 1 nitro, and 4 mg Zofran. PMHx of HTN, alcohol abuse, and anxiety. Patient had been seen in ED around four weeks ago for complaints of chest pain and was admitted to [facility] for evaluation. On physical exam, patient is anxious appearing, tachycardic, and hyperventilating. Patient has voluntary contractions of her hands and feet. However, it was easy to stretch out her hands and feet. EKG showed sinus arrhythmia with rate of 150 BPM. Labs showed MCH 33, RDW 17, plt count 114, MPB 6.9, absolute lymphs 0.8, potassium 2.6, chloride 98, anion gap 16, BUN/creatinine ratio 7, glucose 115, lactic acid 5.7, calcium 8, magnesium < 0.5, total bilirubin 2.6, AST 41. Serum alcohol was < 10. ABG showed pH of 7.52, pCO2 of 29, o2 sat of 99.5. During ED course, patient received fluids, klor con er tab 40 meq PO, Ativan 2 mg IV, potassium chloride 10 meq in 50 mls @ 50 mls/hr IV, and magnesium sulfate 2 gm in 50 mls @ 50 mls/hr IVPB. Patient's case was discussed with Dr. Ferreira, Dr. Ferreira accepts the patient for admission. - Diagnoses Provider Diagnoses: Hypokalemia, Hypomagnesemia, Dehydration - Physician Notifications Discussed Care Of Patient With: Marina Ferreira Time Discussed With Above Provider: 20:40 Instructed by Provider To: Other - Patient's case was discussed with Dr. Ferreira, Dr. Ferreira accepts for admission. Discharge ED - Sign-Out/Discharge Documenting (check all that apply): Patient Departure - admit Patient Received Moderate/Deep Sedation with Procedure: No - Discharge Plan Condition: Stable Disposition: ADMITTED TO [facility] Referrals: No Primary Care Phys,NOPCP [Primary Care Provider] - - Attestation Statements Document Initiated by Scribe: Yes Documenting Scribe: UBALDO GONZALES Provider For Whom Scribe is Documenting (Include Credential): HUGO MOODY MD Scribe Attestation: UBALDO Figueroa, scribed for HUGO MOODY MD on 03/20/19 at 2120. Status of Scribe Document: Ready
[2019-03-20] MEDS ORDERED: Lorazepam PYXIS KEY ONE (19:42)
[2019-03-20 20:00] LABS: ABS Lymphocytes 0.8 10^3/ul (1.0-4.8); ABS Monocytes 0.6 10^3/ul (0-0.8); ABS Neutrophils 5.8 10^3/ul (1.5-7.7); Eosinophil % 0.5 %; Hematocrit 37 % (35-47); Hemoglobin 12.8 g/dL (12.0-16.0); Lymphocyte % 10.9 %; Mean Corpuscular HGB Conc 35 g/dL (31-36); Mean Corpuscular Hemoglobin 33 pg (27-31); Mean Corpuscular Volume 93 fL (80-97); Mean Platelet Volume 6.9 fL (7.4-10.4); Platelet Count 114 10^3/uL (150-450); Red Blood Count 3.95 10^6 /uL (3.70-4.87); Red Cell Distribution Width 17 % (10-15); White Blood Count 7.3 10^3/uL (3.5-10.8)
[2019-03-20 20:17] LABS: ALT 38 U/L (7-52); AST 41 U/L (13-39); Albumin/Globulin Ratio 1.6 (1-3); Alkaline Phosphatase 53 U/L (34-104); Blood Urea Nitrogen 5 mg/dL (6-24); CO2 Carbon Dioxide 24 mmol/L (22-32); Chloride 98 mmol/L (101-111); Creatine Kinase 135 U/L (10-223); EGFR African American 112.1 (>60); EGFR Non-African American 92.6 (>60); Globulin 2.5 g/dL (2-4); Glucose 115 mg/dL (70-100); Sodium 138 mmol/L (135-145); Total Protein 6.5 g/dL (6.4-8.9)
[2019-03-20 20:19] LABS: Activated Partial Thrombo Time 26.9 seconds (26.0-38.0); INR 1.01 (0.82-1.09)
[2019-03-20 20:20] LABS: Anion Gap 16 mmol/L (2-11); Magnesium < 0.5 mg/dL (1.9-2.7); Potassium 2.6 mmol/L (3.5-5.0)
[2019-03-20] MEDS ORDERED: Thiamine INJ* 100 MG, Folic Acid IV* 1 MG, Multiple Vitamin IV ADULT* 10 ML in NS 0.9% ... IV ONE (20:23)
[2019-03-20] MEDS ORDERED: Potassium Chlor TAB* 20 MEQ TAB.ER PO ONE (20:23)
[2019-03-20] MEDS ORDERED: Magnesium Sulfate 2 GM IV* 2 GM/50 ML BAG IVPB ONE ×2 (20:23→21:53)
[2019-03-20 20:24] LABS: HCG Pregnancy < 0.60 mIU/mL
[2019-03-20] MEDS ORDERED: KCL 10 MEQ/50 ML IVPREMIX* 10 MEQ/50 ML BAG IV ONE (20:24)
[2019-03-20 20:38] LABS: Alcohol < 10 mg/dL (<10)
[2019-03-20] MEDS ORDERED: Acetaminophen TAB* 325 MG PO PRN (21:36)
[2019-03-20] MEDS ORDERED: Thiamine INJ* 100 MG/ML 2 ML VIAL IM ONE (21:36)
[2019-03-20] MEDS ORDERED: Ondansetron INJ* 2 MG/ML VIAL IV PRN (21:51)
[2019-03-20] MEDS ORDERED: NS 0.9% w/ 20 Meq KCL 1000 ML* 1,000 ML IV SCH (22:00)
[2019-03-20] MEDS: Magnesium Oxide TAB* 400 MG PO SCH (23:26)
[2019-03-21] LABS: BUN/Creatinine Ratio 6.3 (8-20); Calcium 7.2 mg/dL (8.6-10.3); EGFR African American 128.7 (>60); EGFR Non-African American 106.3 (>60); Magnesium 1.4 mg/dL (1.9-2.7)
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
[2019-03-21] MEDS: LORazepam TAB(*) 1 MG PO SCH ×4 (03:27→20:54)
[2019-03-21 06:41] LABS: BUN/Creatinine Ratio 7.4 (8-20); Calcium 7.2 mg/dL (8.6-10.3); EGFR African American 117.8 (>60); EGFR Non-African American 97.4 (>60); Magnesium 1.8 mg/dL (1.9-2.7); Potassium 3.2 mmol/L (3.5-5.0)
[2019-03-21] MEDS: Losartan TAB* 25 MG PO SCH (08:21)
[2019-03-21] MEDS: Potassium Chlor TAB* 20 MEQ TAB.ER PO SCH (08:22)
[2019-03-21] MEDS: Thiamine TAB* 100 MG TAB PO SCH (08:22)
[2019-03-21] MEDS: Pantoprazole TAB * 40 MG TAB PO SCH (08:22)
[2019-03-21] MEDS: Folic Acid TAB* 1 MG PO SCH (08:22)
[2019-03-21] MEDS: amLODIPine TAB* 5 MG PO SCH (08:22)
[2019-03-21] MEDS: Magnesium Oxide TAB* 400 MG PO SCH ×2 (08:22→20:54)
[2019-03-21] MEDS: Multivitamins/Minerals TAB PO SCH (08:23)
[2019-03-21] MEDS ORDERED: Magnesium Sulfate 1 GM IV* 1 GM/100 ML BAG IV ONE (09:12)
[2019-03-21] MEDS ORDERED: Potassium Chlor TAB* 20 MEQ TAB.ER PO ONE (11:00)
--- NOTE | 2019-03-21 16:31 | PN ---
Subjective Date of Service: 03/21/19 Interval History: patient seen today, still complain of weakness and tremors. She wants to complete her detox and does not want to continue drinking. Her magnesium and potassium still slightly low. She did require 6 mg so far of Ativan within past 12 hours. will request change to inpatient as she is not safe or stable for discharge given her withdrawal Past Medical History: Unchanged from Admission Objective Active Medications: Acetaminophen (Tylenol Tab*) 650 mg PO Q4H PRN PRN Reason: MILD PAIN or TEMP > 100.4 Amlodipine Besylate (Norvasc Tab*) 10 mg PO DAILY [facility] Last Admin: 03/21/19 08:22 Dose: 10 mg Folic Acid (Folvite Tab*) 1 mg PO DAILY [facility] Last Admin: 03/21/19 08:22 Dose: 1 mg Lorazepam (Ativan Tab(*)) 0 - 6 mg PO .PER [facility] PROTOCOL [facility]; Protocol Last Admin: 03/21/19 14:50 Dose: 2 mg Losartan Potassium (Cozaar Tab*) 100 mg PO DAILY [facility] Last Admin: 03/21/19 08:21 Dose: 100 mg Magnesium Oxide (Magox 400 Tab*) 400 mg PO BID [facility] Last Admin: 03/21/19 08:22 Dose: 400 mg Miscellaneous (Ativan Pyxis Omer) 1 ea N/A .ATIVAN IV OMER PRN PRN Reason: PYXIS OMER Multivitamins/Minerals (Theragran/Minerals Tab*) 1 tab PO DAILY [facility] Last Admin: 03/21/19 08:23 Dose: 1 tab Ondansetron HCl (Zofran Inj*) 4 mg IV Q6H PRN PRN Reason: NAUSEA Last Admin: 03/21/19 03:26 Dose: 4 mg Pantoprazole Sodium (Protonix Tab*) 40 mg PO DAILY [facility] Last Admin: 03/21/19 08:22 Dose: 40 mg Potassium Chloride (Klor Con Er Tab*) 20 meq PO DAILY [facility] Last Admin: 03/21/19 08:22 Dose: 20 meq Thiamine HCl (Vitamin B-1 Tab*) 100 mg PO DAILY [facility] Last Admin: 03/21/19 08:22 Dose: 100 mg Vital Signs - 8 hr 03/21/19 03/21/19 03/21/19 09:00 09:31 11:15 Temperature 98.5 F Pulse Rate 95 Respiratory 18 18 18 Rate Blood Pressure 128/91 (mmHg) O2 Sat by Pulse 100 Oximetry 03/21/19 03/21/19 03/21/19 14:43 14:50 15:53 Temperature 98.7 F 97.7 F Pulse Rate 118 102 Respiratory 18 18 18 Rate Blood Pressure 141/93 112/76 (mmHg) O2 Sat by Pulse 98 100 Oximetry Oxygen Devices in Use Now: None Appearance: awake, alert. anxious. tremelous Ears/Nose/Mouth/Throat: NL Teeth, Lips, Gums, Mucous Membranes Moist Neck: NL Appearance and Movements; NL JVP, Trachea Midline Respiratory: Symmetrical Chest Expansion and Respiratory Effort, Clear to Auscultation Cardiovascular: NL Sounds; No Murmurs; No JVD, No Edema Neurological: Alert and Oriented x 3, - - tremoulous Result Diagrams: 03/20/19 19:53 03/21/19 06:12 Assess/Plan/Problems-Billing Assessment: 38 y/o female admitted for alcohol withdrawal and severe electrolytes disturbance including Mag < 0.5 being corrected. - Patient Problems (1) Alcohol abuse Current Visit: No Status: Acute Priority: Medium Code(s): F10.10 - ALCOHOL ABUSE, UNCOMPLICATED SNOMED Code(s): 52500358 Comment: - Continue [facility] protocol - pt willing to have outpatient treatment, will request social consult (2) Alcohol withdrawal Current Visit: No Status: Acute Code(s): F10.239 - ALCOHOL DEPENDENCE WITH WITHDRAWAL, UNSPECIFIED SNOMED Code(s): 754393316 Comment: - [facility] protocol, required 6 mg of Ativan past 12 hrs (3) Hypokalemia Current Visit: No Status: Acute Code(s): E87.6 - HYPOKALEMIA SNOMED Code(s ): 76780634 Comment: - improved, related to alcoholism, nutritional deficiencies, hypomag , medication noncompliance. (4) Hypomagnesemia Current Visit: No Status: Acute Code(s): E83.42 - HYPOMAGNESEMIA SNOMED Code(s): 370422426 Comment: - dngereoulsy low and severe deficient with level of < 0.5 - Remains at risk for relapsing post replanishement. - Check phos. Educated about the risk of cardiac (torsade) (5) HTN (hypertension) Current Visit: No Status: Chronic Code(s): I10 - ESSENTIAL (PRIMARY) HYPERTENSION SNOMED Code(s): 62448225 Comment: - continue amlodipine, and losartan (6) DVT prophylaxis Current Visit: No Status: Acute Code(s): YKA5758 - SNOMED Code(s): 330508919 Comment: -Continue SCD -hold pharamacologic prophylaxis given thrombocytopenia
[2019-03-21] MEDS ORDERED: Melatonin 3 MG TAB PO PRN (19:55)
[2019-03-22 06:02] LABS: Hematocrit 34 % (35-47); Hemoglobin 11.6 g/dL (12.0-16.0); Mean Corpuscular HGB Conc 34 g/dL (31-36); Mean Corpuscular Hemoglobin 33 pg (27-31); Mean Corpuscular Volume 95 fL (80-97); Red Blood Count 3.55 10^6 /uL (3.70-4.87); Red Cell Distribution Width 16 % (10-15); White Blood Count 4.8 10^3/uL (3.5-10.8)
[2019-03-22 06:06] LABS: ABS Eosinophils 0.3 10^3/ul (0-0.6); ABS Lymphocytes 1.1 10^3/ul (1.0-4.8); ABS Monocytes 0.3 10^3/ul (0-0.8); ABS Neutrophils 3.1 10^3/ul (1.5-7.7); Eosinophil % 5.8 %; Mean Platelet Volume 7.6 fL (7.4-10.4); Platelet Count 68 10^3/uL (150-450)
[2019-03-22 06:15] LABS: Albumin 3.4 g/dL (3.2-5.2); Albumin/Globulin Ratio 1.5 (1-3); BUN/Creatinine Ratio 6.8 (8-20); Calcium 8.1 mg/dL (8.6-10.3); EGFR African American 138.8 (>60); EGFR Non-African American 114.7 (>60); Globulin 2.3 g/dL (2-4); Indirect Bilirubin 0.8 mg/dL (0.3-1.0); Magnesium 1.7 mg/dL (1.9-2.7); Phosphorus 3.4 mg/dL (2.5-5.0); Potassium 3.5 mmol/L (3.5-5.0); Total Bilirubin 0.9 mg/dL (0.2-1.0); Total Protein 5.7 g/dL (6.4-8.9)
[2019-03-22] MEDS ORDERED: Magnesium Sulfate 2 GM IV* 2 GM/50 ML BAG IVPB ONE (08:41)
[2019-03-22] MEDS: Losartan TAB* 25 MG PO SCH (09:17)
[2019-03-22] MEDS: amLODIPine TAB* 5 MG PO SCH (09:17)
[2019-03-22] MEDS: Pantoprazole TAB * 40 MG TAB PO SCH (09:18)
[2019-03-22] MEDS: Thiamine TAB* 100 MG TAB PO SCH (09:18)
[2019-03-22] MEDS: Potassium Chlor TAB* 20 MEQ TAB.ER PO SCH ×2 (09:18→20:24)
[2019-03-22] MEDS: Metoprolol Succinate XL TAB* 50 MG PO SCH (09:18)
[2019-03-22] MEDS: Magnesium Oxide TAB* 400 MG PO SCH ×2 (09:18→20:24)
[2019-03-22] MEDS: Folic Acid TAB* 1 MG PO SCH (09:18)
[2019-03-22] MEDS: Multivitamins/Minerals TAB PO SCH (09:18)
[2019-03-22] MEDS ORDERED: hydrOXYzine HCL TAB* 50 MG PO PRN (11:29)
[2019-03-22 15:03] LABS: Urine Benzodiazepine Screen None Detected (None Detect); Urine Opiates Screen None Detected (None Detect)
--- NOTE | 2019-03-22 15:17 | PN ---
Subjective Date of Service: 03/22/19 Interval History: She is feeling stronger, ambulating, and was able to shower. Her last Ativan was 8:54 pm. She still feels unsteady a little. she report she was hallucinating yesterday and had difficulty recognizing where she was. otherwise no acute issue Past Medical History: Unchanged from Admission Objective Active Medications: Acetaminophen (Tylenol Tab*) 650 mg PO Q4H PRN PRN Reason: MILD PAIN or TEMP > 100.4 Amlodipine Besylate (Norvasc Tab*) 10 mg PO DAILY [facility] Last Admin: 03/22/19 09:17 Dose: 10 mg Folic Acid (Folvite Tab*) 1 mg PO DAILY [facility] Last Admin: 03/22/19 09:18 Dose: 1 mg Hydroxyzine HCl (Atarax Tab*) 50 mg PO Q6H PRN PRN Reason: anxiety Last Admin: 03/22/19 14:00 Dose: 50 mg Lorazepam (Ativan Tab(*)) 0 - 6 mg PO .PER [facility] PROTOCOL [facility]; Protocol Last Admin: 03/21/19 20:54 Dose: 2 mg Losartan Potassium (Cozaar Tab*) 100 mg PO DAILY [facility] Last Admin: 03/22/19 09:17 Dose: 100 mg Magnesium Oxide (Magox 400 Tab*) 400 mg PO BID [facility] Last Admin: 03/22/19 09:18 Dose: 400 mg Melatonin (Melatonin) 3 mg PO BEDTIME PRN PRN Reason: SLEEP Last Admin: 03/21/19 20:54 Dose: 3 mg Metoprolol Succinate (Toprol Xl Tab*) 50 mg PO DAILY [facility] Last Admin: 03/22/19 09:18 Dose: 50 mg Miscellaneous (Ativan Pyxis Omer) 1 ea N/A .ATIVAN IV OMER PRN PRN Reason: PYXIS OMER Multivitamins/Minerals (Theragran/Minerals Tab*) 1 tab PO DAILY [facility] Last Admin: 03/22/19 09:18 Dose: 1 tab Ondansetron HCl (Zofran Inj*) 4 mg IV Q6H PRN PRN Reason: NAUSEA Last Admin: 03/21/19 03:26 Dose: 4 mg Pantoprazole Sodium (Protonix Tab*) 40 mg PO DAILY [facility] Last Admin: 03/22/19 09:18 Dose: 40 mg Potassium Chloride (Klor Con Er Tab*) 20 meq PO BID [facility] Thiamine HCl (Vitamin B-1 Tab*) 100 mg PO DAILY [facility] Last Admin: 03/22/19 09:18 Dose: 100 mg Vital Signs - 8 hr 03/22/19 03/22/19 03/22/19 07:15 08:00 11:15 Temperature 98.5 F 97.9 F Pulse Rate 80 88 Respiratory 16 18 18 Rate Blood Pressure 130/96 134/96 (mmHg) O2 Sat by Pulse 99 97 Oximetry Oxygen Devices in Use Now: None Appearance: awake, alert. no distress Eyes: No Scleral Icterus Ears/Nose/Mouth/Throat: NL Teeth, Lips, Gums, Mucous Membranes Moist Neck: NL Appearance and Movements; NL JVP, Trachea Midline Respiratory: Symmetrical Chest Expansion and Respiratory Effort, Clear to Auscultation Cardiovascular: NL Sounds; No Murmurs; No JVD Abdominal: NL Sounds; No Tenderness; No Distention Lymphatic: No Cervical Adenopathy Extremities: No Edema Neurological: - - mild hand tremors. Result Diagrams: 03/22/19 05:29 03/22/19 05:29 Assess/Plan/Problems-Billing Assessment: 38 y/o female admitted for alcohol withdrawal and severe electrolytes disturbance including Mag < 0.5 being corrected. - Patient Problems (1) Alcohol abuse Current Visit: No Status: Acute Priority: Medium Code(s): F10.10 - ALCOHOL ABUSE, UNCOMPLICATED SNOMED Code(s): 86329279 Comment: - Continue WA protocol last benso so far was at 8:54 pm. will need to be 24 hrs off benzo before discharge - pt willing to have outpatient treatment, will request social consult - Will add hydroxyzine for anxiety. (2) Alcohol withdrawal Current Visit: No Status: Acute Code(s): F10.239 - ALCOHOL DEPENDENCE WITH WITHDRAWAL, UNSPECIFIED SNOMED Code(s): 026195113 Comment: - Continue WAM protocol last benso so far was at 8:54 pm. will need to be 24 hrs off benzo before discharge - pt willing to have outpatient treatment, will request social consult - Will add hydroxyzine for anxiety. (3) Hypokalemia Current Visit: No Status: Acute Code(s): E87.6 - HYPOKALEMIA SNOMED Code(s ): 99690576 Comment: - improved, related to alcoholism, nutritional deficiencies, hypomag , medication noncompliance. - will increase her potassium to 20 meq bid (4) Hypomagnesemia Current Visit: No Status: Acute Code(s): E83.42 - HYPOMAGNESEMIA SNOMED Code(s): 717108223 Comment: - dangereoulsy low and severe deficient with level of < 0.5 on admissions - Check phos. Educated about the risk of cardiac (torsade) - Continue tele. Mag 1.7 will give 2 mg and continue oral supplements and will repeat in am (5) HTN (hypertension) Current Visit: No Status: Chronic Code(s): I10 - ESSENTIAL (PRIMARY) HYPERTENSION SNOMED Code(s): 58876170 Comment: - continue amlodipine, and losartan - Still elevated today, I added toprol XL 50mg daily. if BP better in am will decrease to 25 mg. will reassess in am (6) DVT prophylaxis Current Visit: No Status: Acute Code(s): DBD1369 - SNOMED Code(s): 729948006 Comment: -Continue SCD, ambulating -hold pharamacologic prophylaxis given thrombocytopenia
[2019-03-22] MEDS ORDERED: LORazepam TAB(*) 1 MG PO ONE (21:00)
[2019-03-22 23:03] LABS: Urine Appearance Clear; Urine Bacteria Absent (Absent); Urine Bilirubin Negative (Negative); Urine Blood Negative (Negative); Urine Color Yellow; Urine Glucose Negative (Negative); Urine Ketones Negative (Negative); Urine Nitrite Negative (Negative); Urine Protein Negative (Negative); Urine Red Blood Cell Absent (Absent); Urine Specific Gravity 1.011 (1.010-1.030); Urine Squamous Epithelial Cell Present (Absent); Urine Urobilinogen Negative (Negative); Urine White Blood Cell Trace(0-5/hpf) (Absent)
[2019-03-23 06:10] LABS: BUN/Creatinine Ratio 10.7 (8-20); Calcium 8.4 mg/dL (8.6-10.3); EGFR African American 147.4 (>60); EGFR Non-African American 121.8 (>60); Magnesium 1.6 mg/dL (1.9-2.7); Potassium 3.8 mmol/L (3.5-5.0)
[2019-03-23] MEDS: Folic Acid TAB* 1 MG PO SCH (08:44)
[2019-03-23] MEDS: Potassium Chlor TAB* 20 MEQ TAB.ER PO SCH (08:45)
[2019-03-23] MEDS: Multivitamins/Minerals TAB PO SCH (08:45)
[2019-03-23] MEDS: Losartan TAB* 25 MG PO SCH (08:45)
[2019-03-23] MEDS: amLODIPine TAB* 5 MG PO SCH (08:45)
[2019-03-23] MEDS: Magnesium Oxide TAB* 400 MG PO SCH (08:45)
[2019-03-23] MEDS: Thiamine TAB* 100 MG TAB PO SCH (08:45)
[2019-03-23] MEDS: Pantoprazole TAB * 40 MG TAB PO SCH (08:45)
[2019-03-23] MEDS: Metoprolol Succinate XL TAB* 50 MG PO SCH (08:45)
[2019-03-23] MEDS ORDERED: Magnesium Sulfate 1 GM IV* 1 GM/100 ML BAG IV ONE (09:00)
[2019-03-23] MEDS ORDERED: Magnesium Oxide TAB* 400 MG PO SCH (09:00)
[2019-03-23 11:56] VITALS: BP 127/92
--- NOTE | 2019-03-23 13:10 | DS ---
DISCHARGE SUMMARY: DATE OF ADMISSION: 03/20/19 DATE OF DISCHARGE: 03/23/19 FINAL DISCHARGE DIAGNOSES: 1. Alcohol abuse and dependency. 2. Alcohol withdrawal. 3. Severe profound hypomagnesemia, level less than 0.5. 4. Hypokalemia. 5. Hypertension. HOSPITAL COURSE: The patient presented to [facility] on 03/20/19 with a history of alcohol abuse. She attempted self-detox at home about 2 days before, she ended up in the emergency room. In those 2 days, she was being watched by her friends. Apparently, she had some difficulty speaking, had difficulty with breathing, and they felt that she was having a seizure. She could not express any voice or command. She was rushed into the emergency room and it was noted that she was having myotonus and clonus jerks of her upper extremity. She was evaluated in the ER. She had a pulse of 120, blood pressure was 180/115. She was very tremulous with carpopedal spasm. Her electrolytes were significant for potassium of 2.6, lactic acid 5.7, and magnesium level less than 0.5. She was placed on the medical service. She was supplemented with intravenous fluids, Ativan, banana bag, oral supplementation, as well IV supplementation of potassium, several runs of magnesium. She remained in the hospital for the following several days from 03/20/19 to . She was placed on the WA protocol and her symptomatology improved. Her electrolytes trended upward in the correct direction slowly with supplementation , and finally, her magnesium plateaued between 1.6 and 1.8 with oral regimen, with as little as only 1 g of IV supplemented in the past 48 hours. Potassium is up to 3.8. Therefore, she was seen today, was deemed appropriate for discharge. Her last benzodiazepine was more than 36 hours. Her last Ativan was provided on 03/21/19 at 9 p.m. I saw and evaluated the patient and I deemed her stable for discharge from the medical point of view. outside maintenance worker saw and evaluated the patient, they provided her with all the information necessary for her alcohol rehab and support, and the patient elected to pursue outpatient therapy. Therefore, I deemed the patient stable for discharge. PHYSICAL EXAMINATION: Vital Signs: 98.1, pulse 84, respiratory rate 18, sating 98%, blood pressure 140/104. Generally is awake, alert, and oriented. Head and Neck: Normocephalic and atraumatic, supple. Lungs: Clear to auscultation bilaterally. Cardiovascular: S1 and S2. Regular rate and rhythm. Abdomen: Positive bowel sounds. Soft, nontender, and nondistended. Extremities: No pedal edema. DISCHARGE MEDICATIONS: 1. Amlodipine 10 mg daily. 2. Hydroxyzine 50 mg q.6 p.r.n. for anxiety, she was given 28 tabs. 3. Losartan 100 mg daily, resume. 4. New prescription for magnesium 400 mg b.i.d. 5. Continue melatonin 3 mg at bedtime for sleep over the counter. 6. Pantoprazole 40 mg daily, resume. 7. Potassium 20 mEq daily, resume. 8. Tylenol p.r.n. 9. Milk of magnesia p.r.n. 10. Vitamin D 50,000 units once a week. 11. Folic acid 1 mg daily, resume. 12. Resume metoprolol 25 mg daily. 13. Multivitamin daily, resume. 14. Thiamine 100 mg daily, resume. INPATIENT DIAGNOSTIC STUDY: EKG revealed sinus tachycardia, rate of 115, MO 147 , QTc 435, QRS 77. DISCHARGE RECOMMENDATIONS: Follow up with the primary care to call and make an appointment. Follow up with the alcohol supportive care. DISCHARGE CONDITION: STABLE DISCHARGE DISPOSITION: HOME Take oral medication as prescribed. Alcohol cessation and abstinence. [id number]/CPS #: [id number] MTDD
== END 2019-03-23 13:00 | disposition home or self-care (01) | DRG 897 ==
LOC: ED 19:22 → MED 21:31 → OBSVTOIN 03-21 18:00
PROVIDERS: ADMIT Internal Medicine; ATTEND Internal Medicine
DX: F10.239 Alcohol dependence with withdrawal, unspecified (principal); E87.2 Acidosis; Y90.0 Blood alcohol level of less than 20 mg/100 ml; E83.42 Hypomagnesemia; E87.6 Hypokalemia; I10 Essential (primary) hypertension; F41.9 Anxiety disorder, unspecified; E86.0 Dehydration; D69.6 Thrombocytopenia, unspecified; J45.909 Unspecified asthma, uncomplicated; F32.9 Major depressive disorder, single episode, unspecified; Z87.891 Personal history of nicotine dependence; Z82.49 Family history of ischemic heart disease and other diseases of the circulatory system; Z80.0 Family history of malignant neoplasm of digestive organs
CPT/HCPCS: 36415; 80048; 80053; 80076; 80307; 80320; 81003; 81015; 82550; 82803; 83605; 83735; 84100; 84443; 84702; 85025; 85060; 85610; 85730; 87086; 93005; 99284; A9270-GY; G0378; G0480; J2060; J2405; J3411; J3475; J3480

== ENCOUNTER 2019-04-11 09:11 | Emergency (ER) | payer MEDICAID ==
[2019-04-11] MEDS ORDERED: NS 0.9% 1000 ML** 1,000 ML IV ONE (09:18)
[2019-04-11] MEDS ORDERED: Lorazepam PYXIS KEY PRN ×2 (09:18→11:43)
[2019-04-11] MEDS ORDERED: LORazepam INJ* 2 MG/ML 1 ML VIAL IV PUSH ONE ×2 (09:18→11:43)
--- NOTE | 2019-04-11 09:32 | ED ---
Shortness of Breath - HPI Summary HPI Summary: Pt is a 38 y/o F presenting to the ED via EMS with a chief complaint of shortness of breath that began [employer] while walking this morning. The chief complaint is associated with dizziness that began 3 days ago, chest tightness, bilateral LE weakness, and anxiety. She was previously seen in the ER a few weeks ago for an abdominal complaint, but did not see specialist she was referred to. She admits EtOH abuse and most recently had a binge drinking episode 2 days ago; she feels she is in withdrawal. She vomited this morning in the shower, and is currently experiencing nausea. Denies fever or chills. She takes supplements for a PMHx that includes hypokalemia and low magnesium, HTN medication, and medications for tachycardia. Medications reviewed. Allergies noted. - History of Current Complaint Hx Obtained From: Patient Onset/Duration: Sudden Onset, Still Present Current Severity: Moderate Dyspnea At: Other - Walking Aggravating Factors: Other - possibly EtOH withdrawal Associated Signs & Symptoms: Negative - Allergy/Home Medications Allergies/Adverse Reactions: Allergies Allergy/AdvReac Type Severity Reaction Status Date / Time No Known Allergies Allergy Verified 03/20/19 19:30 Home Medications: Home Medications Ondansetron TAB* [Zofran 4 MG Tab*] 4 mg PO Q6H PRN 04/11/19 [History Confirmed 04/11/19] PMH/Surg Hx/FS Hx/Imm Hx Previously Healthy: Yes Endocrine/Hematology History: Denies: Hx Diabetes Cardiovascular History: Reports: Hx Hypertension Respiratory History: Reports: Hx Asthma Sensory History: Denies: Hx Contacts or Glasses, Hx Eye Injury, Hx Legally Blind, Hx Macular Degeneration, Hx Vision Problem, Hx Hearing Aid, Other Sensory Impairments Opthamlomology History: Denies: Hx Contacts or Glasses, Hx Eye Injury, Hx Legally Blind, Hx Macular Degeneration, Hx Vision Problem, Other Sensory Impairments Psychiatric History: Reports: Hx Anxiety, Hx Depression, Hx Substance Abuse - ETOH abuse, recent binge - Surgical History Surgery Procedure, Year, and Place: hernia repair at age 9 Infectious Disease History: No Infectious Disease History: Denies: Hx Clostridium Difficile, Hx of Known/Suspected MRSA, Hx Shingles, Hx Tuberculosis, Traveled Outside the [place] in Last 30 Days - Family History Known Family History: Positive: Cardiac Disease - [place] - mother, Other - colon [place] - father - Social History Alcohol Use: pt states "quite a bit" Alcohol Amount: "quite a bit" Hx Substance Use: No Substance Use Type: Reports: None Substance Use Comment - Amount & Last Used: Per pt, 1.5 weeks prior to admission Hx Tobacco Use: Yes Smoking Status (MU): Former Smoker Review of Systems Negative: Fever, Chills Positive: Chest Pain - chest tightness Positive: Shortness Of Breath Positive: Vomiting, Nausea Neurological: Other - dizziness Positive: Weakness - Bilateral lower extremities Positive: Anxious All Other Systems Reviewed And Are Negative: Yes Physical Exam - Summary Physical Exam Summary: Constitutional: Well-developed, Well-nourished, Alert. (-) Distressed. Appears anxious. Skin: Warm, Dry HENT: Normocephalic; Atraumatic Eyes: Conjunctiva normal Neck: Musculoskeletal ROM normal neck. (-) JVD, (-) Stridor, (-) Tracheal deviation Cardio: Rhythm regular, Tachycardic, Heart sounds normal; Intact distal pulses; The pedal pulses are 2+ and symmetric. Radial pulses are 2+ and symmetric. (-) Murmur Pulmonary/Chest wall: Effort normal. (-) Respiratory distress, (-) Wheezes, (-) Rales Abd: Soft, (-) tenderness, (-) Distension, (-) Guarding, (-) Rebound Musculoskeletal: (-) Edema Lymph: (-) Cervical adenopathy Neuro: Alert, Oriented x3. Tremor with outstretched arms. Psych: Mood and affect Normal Triage Information Reviewed: Yes Vital Signs On Initial Exam: Initial Vitals Temp Pulse Resp BP Pulse Ox 98.3 F 113 18 160/128 100 04/11/19 09:12 04/11/19 09:12 04/11/19 09:12 04/11/19 09:12 04/11/19 09:12 Vital Signs Reviewed: Yes Procedures - Sedation Patient Received Moderate/Deep Sedation with Procedure: No Diagnostics - Vital Signs Vital Signs Temp Pulse Resp BP Pulse Ox 04/11/19 09:12 98.3 F 113 18 160/128 100 - Laboratory Result Diagrams: 04/11/19 09:25 04/11/19 09:25 Lab Statement: Any lab studies that have been ordered have been reviewed, and results considered in the medical decision making process. - Radiology Chest X-ray Radiology Interpretation Completed By: Radiologist Summary of Radiographic Findings: CXR IMPRESSION: NO ACTIVE CARDIOPULMONARY DISEASE. Reviewed by ED physician. - EKG 1057 Cardiac Rate: NL - 97 BPM EKG Rhythm: Sinus Rhythm ST Segment: Normal Ectopy: None Summary of EKG Findings: EKG at 1057 on 04/11/2019 shows 97 BPM, normal sinus rhythm, and T wave inversion on 3. No STEMI or ischemia. Re-Evaluation - Re-Evaluation 1st re-eval Re-Evaluation Time: 11:00 Change: Improved Comment: Pt feels better, looks more comfortable, HR in 90s until talking to her , then went into low 100s. 2nd re-eval Change: Unchanged Comment: At 13:30 called outpatient at detox facilities but will not accept pt, will be discharged. Course/Dx - Diagnoses Provider Diagnoses: Alcohol addiction, LUQ pain, Shortness of breath, Alcohol withdrawal Discharge ED - Sign-Out/Discharge Documenting (check all that apply): Patient Departure Patient Received Moderate/Deep Sedation with Procedure: No - Discharge Plan Condition: Stable Disposition: HOME Patient Education Materials: Abuse of Alcohol (ED) Referrals: [facility] [Outside] Flako Malagon MD [Medical Doctor] - Additional Instructions: Please follow-up with PCP in 1-3 days. Return to Emergency Department for any new or worsening symptoms. - Billing Disposition and Condition Condition: STABLE Disposition: Home - Attestation Statements Document Initiated by Tikaibe: Yes Documenting Scribe: Ryann Okeefe Provider For Whom Tikaibe is Documenting (Include Credential): Rhys Morelos MD. Scribe Attestation: Izzy Figueroa Kathryn O'Connor, scribed for Rhys Morelos MD. on 04/27/19 at 0635. Scribe Documentation Reviewed: Yes Provider Attestation: The documentation as recorded by the scribe, Ryann Okeefe accurately reflects the service I personally performed and the decisions made by , Rhys Morelos MD. Status of Scribe Document: Viewed
[2019-04-11 09:40] LABS: ABS Eosinophils 0.2 10^3/ul (0-0.6); ABS Lymphocytes 0.9 10^3/ul (1.0-4.8); ABS Monocytes 0.2 10^3/ul (0-0.8); ABS Neutrophils 3.1 10^3/ul (1.5-7.7); Eosinophil % 4.6 %; Hematocrit 37 % (35-47); Hemoglobin 12.6 g/dL (12.0-16.0); Lymphocyte % 20.7 %; Mean Corpuscular HGB Conc 34 g/dL (31-36); Mean Corpuscular Hemoglobin 33 pg (27-31); Mean Corpuscular Volume 97 fL (80-97); Mean Platelet Volume 7.4 fL (7.4-10.4); Platelet Count 143 10^3/uL (150-450); Red Blood Count 3.86 10^6 /uL (3.70-4.87); Red Cell Distribution Width 16 % (10-15); White Blood Count 4.5 10^3/uL (3.5-10.8)
[2019-04-11 09:56] LABS: ALT 34 U/L (7-52); AST 38 U/L (13-39); Albumin 4.3 g/dL (3.2-5.2); Albumin/Globulin Ratio 1.7 (1-3); Alkaline Phosphatase 45 U/L (34-104); Anion Gap 12 mmol/L (2-11); BUN/Creatinine Ratio 19.7 (8-20); Blood Urea Nitrogen 13 mg/dL (6-24); CO2 Carbon Dioxide 24 mmol/L (22-32); Calcium 9.1 mg/dL (8.6-10.3); Chloride 106 mmol/L (101-111); EGFR African American 121.9 (>60); EGFR Non-African American 100.8 (>60); Globulin 2.6 g/dL (2-4); Glucose 110 mg/dL (70-100); Magnesium 1.4 mg/dL (1.9-2.7); Potassium 3.5 mmol/L (3.5-5.0); Sodium 142 mmol/L (135-145); Total Protein 6.9 g/dL (6.4-8.9)
[2019-04-11] MEDS ORDERED: Magnesium Sulfate 2 GM IV* 2 GM/50 ML BAG IVPB ONE (09:57)
[2019-04-11 09:58] LABS: HCG Pregnancy < 0.60 mIU/mL
[2019-04-11 11:44] LABS: Alcohol 105 mg/dL (<10)
[2019-04-11 14:14] VITALS: BP 157/110
== END 2019-04-11 14:16 | disposition home or self-care (01) ==
LOC: ED 09:11
DX: F10.239 Alcohol dependence with withdrawal, unspecified (principal); R10.12 Left upper quadrant pain; R06.02 Shortness of breath; I10 Essential (primary) hypertension; Z87.891 Personal history of nicotine dependence; Z79.899 Other long term (current) drug therapy
CPT/HCPCS: 36415; 71046; 80053; 80320; 83690; 83735; 84484; 84702; 85025; 93005; 96361; 96365; 96366; 96375; 96376; 99284; G0480; J2060; J3475

== ENCOUNTER 2019-09-13 04:41 | Emergency (ER) | payer MEDICAID, OTHER ==
[2019-09-13] MEDS ORDERED: NS 0.9% 1000 ML** 1,000 ML IV ONE (06:01)
--- NOTE | 2019-09-13 06:05 | ED ---
Complex/Multi-Sys Presentation - HPI Summary HPI Summary: Pt. is a 39 y.o female who presents to the ER for ongoing cough, myalgias, vomiting x several weeks. Pt. notes numerous coworkers sick with similar hx. Pt. notes hx of alcoholism and states she was drinking last week but not this week. Past hx of HTN and has not been taking her BP medications. Pt. denies fever, abd. pain, diarrhea, urinary sxs. Notes hx of low mag and k and states she has been staying in [place] and her mediations are in [place] right now. Sxs are moderate in severity. no current modifying factors. - History Of Current Complaint Chief Complaint: EDFluSymptoms Time Seen by Provider: 09/13/19 05:39 Hx Obtained From: Patient - Allergies/Home Medications Allergies/Adverse Reactions: Allergies Allergy/AdvReac Type Severity Reaction Status Date / Time No Known Allergies Allergy Verified 09/13/19 04:57 PMH/Surg Hx/FS Hx/Imm Hx Previously Healthy: Yes Endocrine/Hematology History: Denies: Hx Diabetes Cardiovascular History: Reports: Hx Hypertension Respiratory History: Reports: Hx Asthma Sensory History: Denies: Hx Contacts or Glasses, Hx Eye Injury, Hx Legally Blind, Hx Macular Degeneration, Hx Vision Problem, Hx Hearing Aid, Other Sensory Impairments Opthamlomology History: Denies: Hx Contacts or Glasses, Hx Eye Injury, Hx Legally Blind, Hx Macular Degeneration, Hx Vision Problem, Other Sensory Impairments Psychiatric History: Reports: Hx Anxiety, Hx Depression, Hx Substance Abuse - ETOH abuse, recent binge - Surgical History Surgery Procedure, Year, and Place: hernia repair at age 9 Infectious Disease History: No Infectious Disease History: Denies: Hx Clostridium Difficile, Hx of Known/Suspected MRSA, Hx Shingles, Hx Tuberculosis, Traveled Outside the [place] in Last 30 Days - Family History Known Family History: Positive: Unknown - Her parents a while ago, Cardiac Disease - [place] - mother, Other - colon [place] - father - Social History Occupation: Unemployed Lives: With Family Alcohol Use: Daily Alcohol Amount: "quite a bit" Hx Substance Use: No Substance Use Type: Reports: None Substance Use Comment - Amount & Last Used: Per pt, 1.5 weeks prior to admission Hx Tobacco Use: Yes Smoking Status (MU): Former Smoker Review of Systems - ROS Summary Review of Systems Summary: Metoprolol Succinate XL TAB* [Toprol XL TAB*] 25 mg PO DAILY 09/10/17 [History Confirmed 09/13/19] Thiamine TAB* [Vitamin B-1 TAB 100 MG*] 100 mg PO DAILY tab 05/26/18 [Rx Confirmed 09/13/19] Losartan TAB* [Cozaar TAB*] 100 mg PO DAILY 02/12/19 [History Confirmed 09/13/19 ] Potassium Chlor TAB* [Potassium Chlor TAB 20 MEQ*] 40 meq PO DAILY 02/12/19 [ History Confirmed 09/13/19] amLODIPine TAB* [Norvasc 5 mg TAB*] 5 mg PO DAILY 02/12/19 [History Confirmed ] Magnesium Oxide TAB* [MagOx 400 TAB*] 400 mg PO BID #60 tab 03/23/19 [Rx Confirmed 09/13/19] hydrOXYzine HCL TAB* [Atarax TAB 50 MG *] 50 mg PO Q6H PRN 7 Days #28 tab [Rx Confirmed 09/13/19] Ondansetron TAB* [Zofran 4 MG Tab*] 4 mg PO Q6H PRN 04/11/19 [History Confirmed 09/13/19] Constitutional: Negative Negative: Fever ENT: Negative Cardiovascular: Negative Positive: Shortness Of Breath, Cough Positive: Vomiting, Nausea. Negative: Abdominal Pain, Diarrhea Genitourinary: Negative Positive: Myalgia Skin: Negative Neurological/Mental Status: Negative All Other Systems Reviewed And Are Negative: Yes Physical Exam Triage Information Reviewed: Yes Vital Signs On Initial Exam: Initial Vitals Temp Pulse Resp BP Pulse Ox 97.5 F 92 20 173/123 100 09/13/19 04:43 09/13/19 04:43 09/13/19 04:43 09/13/19 04:43 09/13/19 04:43 Vital Signs Reviewed: Yes Appearance: Positive: Well-Appearing - Pt. lying in bed in NAD. Skin: Positive: Warm, Dry Head/Face: Positive: Normal Head/Face Inspection Eyes: Positive: Normal, EOMI, SHANA Neck: Positive: Supple Respiratory/Lung Sounds: Positive: Clear to Auscultation, Breath Sounds Present Cardiovascular: Positive: Normal, RRR Abdomen Description: Positive: Nontender, Soft Neurological: Positive: Normal, CN Intact II-III Psychiatric: Positive: Affect/Mood Appropriate Procedures - Sedation Patient Received Moderate/Deep Sedation with Procedure: No Diagnostics - Vital Signs Vital Signs Temp Pulse Resp BP Pulse Ox 09/13/19 05:25 159/103 09/13/19 05:01 77 100 09/13/19 05:00 84 168/95 100 09/13/19 04:43 97.5 F 92 20 173/123 100 - Laboratory Result Diagrams: 09/13/19 06:15 09/13/19 06:15 Lab Statement: Any lab studies that have been ordered have been reviewed, and results considered in the medical decision making process. Complex Multi-Symp Course/Dx Course Of Treatment: Pt. with above sxs. Afebrile with stable VS. Pt. given iv fluids, zofran, tylenol. Labs unremarkable other than mildly low mag. Positive influenza B. On ree-xam pt. feeling better and tolerating PO fluids. WIll dc home to continue supprotive care. Encouraged to take home medications. To f.u with pcp and return to er if sxs change or worsen. Pt. understands and agrees with plan. - Diagnoses Provider Diagnoses: Influenza B Discharge ED - Sign-Out/Discharge Documenting (check all that apply): Patient Departure - Discharge Plan Condition: Improved Disposition: HOME Patient Education Materials: Influenza (ED) Referrals: [facility] [Outside] Additional Instructions: Please schedule follow up with the [facility] Increase fluids and rest Take home medications as directed Return to ER if symptoms change or worsen - Billing Disposition and Condition Condition: IMPROVED Disposition: Home - Attestation Statements Provider Attestation: I was available for consultation for this patient. I did not evaluate the patient or participate in any medical decision making or disposition decisions unless I am specifically named in the chart as having consulted on the patient. If I have consulted on the patient, please see my own ED note on the patient encounter. Eula Bertrand MD
[2019-09-13] MEDS ORDERED: Acetaminophen TAB* 325 MG PO ONE (06:20)
[2019-09-13 06:27] LABS: ABS Eosinophils 0.3 10^3/ul (0-0.6); ABS Lymphocytes 1.7 10^3/ul (1.0-4.8); ABS Monocytes 0.4 10^3/ul (0-0.8); ABS Neutrophils 4.5 10^3/ul (1.5-7.7); Eosinophil % 4.4 %; Hematocrit 39 % (35-47); Hemoglobin 13.4 g/dL (12.0-16.0); Lymphocyte % 24.4 %; Mean Corpuscular HGB Conc 35 g/dL (31-36); Mean Corpuscular Hemoglobin 31 pg (27-31); Mean Corpuscular Volume 88 fL (80-97); Mean Platelet Volume 7.3 fL (7.4-10.4); Platelet Count 186 10^3/uL (150-450); Red Blood Count 4.39 10^6 /uL (3.70-4.87); Red Cell Distribution Width 14 % (10-15); White Blood Count 6.9 10^3/uL (3.5-10.8)
[2019-09-13 06:44] LABS: ALT 17 U/L (7-52); AST 20 U/L (13-39); Albumin/Globulin Ratio 1.4 (1-3); Alkaline Phosphatase 57 U/L (34-104); Anion Gap 9 mmol/L (2-11); BUN/Creatinine Ratio 18.6 (8-20); Blood Urea Nitrogen 11 mg/dL (6-24); CO2 Carbon Dioxide 24 mmol/L (22-32); Calcium 8.5 mg/dL (8.6-10.3); Chloride 106 mmol/L (101-111); EGFR Non-African American 114.1 (>60); Globulin 2.9 g/dL (2-4); Glucose 96 mg/dL (70-100); Magnesium 1.7 mg/dL (1.9-2.7); Potassium 3.6 mmol/L (3.5-5.0); Sodium 139 mmol/L (135-145); Total Protein 6.9 g/dL (6.4-8.9)
[2019-09-13 06:51] LABS: HCG Pregnancy < 0.60 mIU/mL
[2019-09-13] MEDS ORDERED: Magnesium Oxide TAB* 400 MG PO ONE (06:52)
[2019-09-13 07:31] LABS: Influenza B Molecular POSITIVE (Negative)
[2019-09-13 08:41] VITALS: BP 148/93
== END 2019-09-13 08:41 | disposition home or self-care (01) ==
LOC: ED 04:41
DX: J10.1 Influenza due to other identified influenza virus with other respiratory manifestations (principal); I10 Essential (primary) hypertension; J45.909 Unspecified asthma, uncomplicated; F41.9 Anxiety disorder, unspecified; F32.9 Major depressive disorder, single episode, unspecified; Z87.891 Personal history of nicotine dependence; Z79.899 Other long term (current) drug therapy
CPT/HCPCS: 36415; 71046; 80053; 83690; 83735; 84702; 85025; 96360; 96361; 99283; A9270-GY

== ENCOUNTER 2021-05-08 19:12 | Inpatient (IN) ==
[2021-05-08] MEDS ORDERED: Lorazepam PYXIS KEY PRN (20:29)
[2021-05-08] MEDS ORDERED: Lactated Ringers 1000 ml BAG 1,000 ML IV ONE (20:29)
[2021-05-08] MEDS ORDERED: LORazepam 2 mg VIAL 1 ml IV PUSH ONE (20:29)
[2021-05-08 20:57] LABS: ABS Eosinophils 0.5 10^3/ul (0-0.6); ABS Lymphocytes 2.1 10^3/ul (1.0-4.8); ABS Monocytes 0.5 10^3/ul (0-0.8); ABS Neutrophils 5.3 10^3/ul (1.5-7.7); Eosinophil % 5.7 %; Hematocrit 38 % (35-47); Hemoglobin 12.9 g/dL (12.0-16.0); Lymphocyte % 25.3 %; Mean Corpuscular HGB Conc 35 g/dL (31-36); Mean Corpuscular Hemoglobin 31 pg (27-31); Mean Corpuscular Volume 89 fL (80-97); Mean Platelet Volume 6.9 fL (7.4-10.4); Platelet Count 287 10^3/uL (150-450); Red Blood Count 4.22 10^6 /uL (3.70-4.87); Red Cell Distribution Width 15 % (10-15); White Blood Count 8.4 10^3/uL (3.5-10.8)
[2021-05-08 21:12] LABS: ALT 13 U/L (7-52); AST 22 U/L (13-39); Albumin/Globulin Ratio 1.4 (1-3); Alkaline Phosphatase 68 U/L (35-149); Anion Gap 11 mmol/L (2-11); Blood Urea Nitrogen 11 mg/dL (6-24); CO2 Carbon Dioxide 21 mmol/L (22-32); Calcium 8.1 mg/dL (8.6-10.3); Chloride 110 mmol/L (101-111); Globulin 2.8 g/dL (2-4); Glucose 116 mg/dL (70-100); Potassium 3.2 mmol/L (3.5-5.0); Sodium 142 mmol/L (135-145); Total Protein 6.8 g/dL (6.4-8.9)
[2021-05-08 21:44] LABS: Urine Appearance Cloudy; Urine Bilirubin Negative (Negative); Urine Blood 3+ (Negative); Urine Color Yellow; Urine Glucose Negative (Negative); Urine Ketones Negative (Negative); Urine Nitrite Negative (Negative); Urine Protein Negative (Negative); Urine Specific Gravity 1.018 (1.002-1.030); Urine Urobilinogen Negative (Negative)
[2021-05-08 21:54] LABS: Urine Benzodiazepine Screen None Detected (None Detect); Urine Cannabinoids Screen None Detected (None Detect); Urine Opiates Screen None Detected (None Detect)
[2021-05-08 21:57] LABS: Urine Bacteria 1+ (Absent); Urine Red Blood Cell Absent (Absent); Urine Squamous Epithelial Cell Present (Absent); Urine White Blood Cell Trace(0-5/hpf) (Absent)
[2021-05-08 22:06] LABS: Acetaminophen < 15 mcg/mL; Alcohol, S 252 mg/dL (<13); Salicylate < 2.50 mg/dL (<30)
[2021-05-08 22:21] LABS: TSH Ultra Thyroid Stim Horm 1.02 mcIU/mL (0.34-5.60)
[2021-05-09] MEDS ORDERED: Ondansetron 4 mg VIAL 2 MG/ML 2 ml VIAL IV ONE (03:09)
[2021-05-09] MEDS ORDERED: Lactated Ringers 1000 ml BAG 1,000 ML IV ONE (04:04)
[2021-05-09] MEDS ORDERED: Lorazepam PYXIS KEY PRN ×2 (04:04→06:32)
[2021-05-09] MEDS ORDERED: LORazepam 2 mg VIAL 1 ml IV PUSH ONE ×2 (04:04→06:32)
[2021-05-09 08:09] LABS: Magnesium 1.9 mg/dL (1.9-2.7)
[2021-05-09 08:17] LABS: HCG Pregnancy < 0.60 mIU/mL
[2021-05-09] MEDS ORDERED: Al Hydrox/Mg Hydrox/Simet LIQ 30 ML UDC PO PRN (08:23)
[2021-05-09] MEDS ORDERED: Thiamine 100 MG/ML 2 ml VIAL (200 mg) IM ONE (08:26)
[2021-05-09] MEDS ORDERED: Potassium Chlor 20 meq TAB.ER PO ONE (08:31)
[2021-05-09 08:51] LABS: Amylase 41 U/L (29-103)
[2021-05-09] MEDS ORDERED: Multivitamins/Minerals TAB PO SCH (09:00)
[2021-05-09] MEDS: Thiamine 100 MG/ML 2 ml VIAL 100 MG, Folic Acid IV 1 MG, Multiple Vitamin IV ADULT 10 M... IV ONE ×2 (10:25→10:28)
[2021-05-09] MEDS: NS 0.9% 1000 ml BAG 1,000 ML IV SCH ×2 (15:03→16:44)
[2021-05-09] MEDS: Ondansetron 4 mg VIAL 2 MG/ML 2 ml VIAL IV PRN (23:15)
[2021-05-10 05:48] LABS: ABS Eosinophils 0.8 10^3/ul (0-0.6); ABS Lymphocytes 1.6 10^3/ul (1.0-4.8); ABS Monocytes 0.5 10^3/ul (0-0.8); ABS Neutrophils 3.9 10^3/ul (1.5-7.7); Eosinophil % 11.2 %; Hematocrit 36 % (35-47); Hemoglobin 12.4 g/dL (12.0-16.0); Lymphocyte % 23.6 %; Mean Corpuscular HGB Conc 34 g/dL (31-36); Mean Corpuscular Hemoglobin 31 pg (27-31); Mean Corpuscular Volume 89 fL (80-97); Mean Platelet Volume 6.9 fL (7.4-10.4); Platelet Count 203 10^3/uL (150-450); Red Blood Count 4.01 10^6 /uL (3.70-4.87); Red Cell Distribution Width 14 % (10-15); White Blood Count 6.7 10^3/uL (3.5-10.8)
[2021-05-10 06:02] LABS: Calcium 8.5 mg/dL (8.6-10.3); Magnesium 1.8 mg/dL (1.9-2.7); Potassium 3.8 mmol/L (3.5-5.0)
[2021-05-10] MEDS: Ondansetron 4 mg VIAL 2 MG/ML 2 ml VIAL IV PRN (08:10)
[2021-05-10] MEDS: LORazepam 2 mg VIAL 1 ml IV PUSH SCH ×2 (08:10→16:08)
[2021-05-10] MEDS: Multivitamins/Minerals TAB PO SCH (08:13)
[2021-05-10] MEDS ORDERED: Butalb/Acetamin/Caff TAB 325-50-40MG PO PRN (21:38)
[2021-05-11] MEDS: Multivitamins/Minerals TAB PO SCH (07:58)
[2021-05-11 09:22] LABS: Calcium 8.9 mg/dL (8.6-10.3); Potassium 4.2 mmol/L (3.5-5.0)
[2021-05-11 12:17] VITALS: BP 149/98
== END 2021-05-11 15:30 | disposition home or self-care (01) | DRG 775 ==
LOC: SSU 19:12 → ED 19:12 → SSU 05-09 15:13
PROVIDERS: ADMIT Pediatrics; ATTEND Pediatrics